=== PATIENT | female | born 1955 | race Caucasian/White ===

== ENCOUNTER 2016-11-13 11:09 | Emergency (ER) | payer OTHER, BC ==
[~2016-11-13] VITALS: Ht 160 cm; Wt 66.2 kg
[~2016-11-13 11:09] MED LIST: CHOL100027 PO; CLX20 PO; CYAN10004 PO; LORA-749 PO; MULT-506 PO; OXYC-57 PO; XNX25 PO
[2016-11-13 11:11] VITALS: TEMP 36.9; Ht 160 cm; Wt 66.2 kg
[2016-11-13] MEDS ORDERED: KETOROLAC TROMETHAMINE 30 MG/ML VIAL IV STA (11:33)
[2016-11-13] MEDS ORDERED: DEXAMETHASONE SOD INJ 10 MG/ML VIAL IV ONE (11:45)
[2016-11-13] MEDS ORDERED: SODIUM CHLORIDE 0.9% 1000ML 1,000 ML IV ONE (11:45)
[2016-11-13 12:04] LABS: BASO % 0.2 %; BASO ABS # 0.02 K/uL (0-0.2); COMPLETE YES; EOS % 1.5 %; HEMATOCRIT 39.9 % (37-47); IG% 0.2 %; LYMPH % 20.8 %; LYMPH ABS # 1.67 K/uL (1.2-3.4); MEAN CELL VOLUME 87.7 fL (80-100); MEAN CORPUSCULAR HEMOGLOBIN 29.7 pg (25-34); MEAN CORPUSCULAR HGB CONC 33.8 g/dl (32-36); MEAN PLATELET VOLUME 9.9 fL (7.4-10.4); MONO % 10.5 %; NEUT % 66.8 %; PLATELET COUNT 213 K/uL (130-400); RED BLOOD COUNT 4.55 M/uL (4.2-5.4); WHITE BLOOD COUNT 8.02 K/uL (4.8-10.8)
--- NOTE | 2016-11-13 12:05 | EMERGENCY ROOM VISIT NOTE ---
ED Visit Note First contact with patient: 11:24 I have seen and examined this patient with Jass Nam and generally agree with the treatment plan as discussed. Current/Historical Medications Scheduled Citalopram (Celexa *), 40 MG PO DAILY Allergies Coded Allergies: No Known Allergies (Verified , 05/19/11) Vital Signs Date Time Temp Pulse Resp B/P Pulse Ox O2 Delivery O2 Flow Rate FiO2 11/13/16 11:11 36.9 96 20 138/88 96 Room Air Laboratory Results Test 11/13/16 11:50 Medications Administered Medications (Trade) Dose Ordered Sig/Nevaeh Route Start Time Stop Time Status Last Admin Dose Admin Sodium Chloride (Nss 1000ml) 1,000 ml @ 200 mls/hr Q5H ONCE IV 11/13/16 11:45 11/13/16 16:44 11/13/16 11:45 200 MLS/HR Ketorolac Tromethamine (Toradol Inj) 30 mg NOW STAT IV 11/13/16 11:33 11/13/16 11:36 DC 11/13/16 11:46 30 MG Dexamethasone Sodium Phosphate (Decadron Inj) 10 mg NOW ONCE IV 11/13/16 11:45 11/13/16 11:46 DC 11/13/16 11:46 10 MG Departure Information Referrals Amarjit Mendez M.D. (PCP) Patient Instructions A Signature Page, [facility]
[2016-11-13 12:22] LABS: BUN/CREATININE RATIO 9.5 (10-20); CALCIUM 8.5 mg/dl (8.5-10.1); CREATININE 0.8 mg/dl (0.60-1.20); POTASSIUM 3.5 mmol/L (3.5-5.1)
[2016-11-13] MEDS ORDERED: MoRPHine SULFATE 2 MG/ML CARP IV STA (13:14)
[2016-11-13] MEDS ORDERED: ONDANSETRON INJ 2 MG/ML 2 ML VIAL IV STA (13:14)
--- NOTE | 2016-11-13 14:40 | DIAGNOSTIC IMAGING REPORT ---
CT SCAN OF THE NECK WITH IV CONTRAST CLINICAL HISTORY: Throat swelling. Dysphagia. COMPARISON STUDY: Radiograph the cervical spine dated 06/29/2016. TECHNIQUE: Following the IV administration of 118 cc of Optiray 320, CT scan of the soft tissues of the neck was performed from the skull base to the upper chest. Images are reviewed in the axial, sagittal, and coronal planes. IV contrast was administered without complication. CT DOSE: 431.72 mGy.cm FINDINGS: Pharynx: There is bilateral tonsillar edema, right greater than left. Phlegmonous changes suggested on the right. No organized fluid collection is seen to indicate abscess. There is mild stranding within the right parapharyngeal fat at the level of C4-C5. There is retropharyngeal edema eccentric to the right seen extending from C2 through C5. Phlegmonous change with a developing retropharyngeal fluid collection is suggested eccentric to the right at C4-C5, best seen on axial image #193. This measures up to 4 mm in thickness, there is effacement of the right pyriform sinus and vallecula. There is mild mass effect with no significant compromise of the airway. There is no evidence of mass lesion. The vocal cords appear symmetric. The left parapharyngeal fat is well maintained. The epiglottis is normal. Lymphadenopathy: No cervical lymphadenopathy is seen Thyroid: Normal in size and attenuation. A subcentimeter nodule is noted in the left lobe. Salivary glands: The parotid and submandibular glands are within normal limits. Brain parenchyma: The visualized brain parenchyma at the skull base is normal in appearance. Vascular structures: The carotid arteries and jugular veins are widely patent. Minimal atherosclerotic calcification is seen in the left carotid bulb. Skeletal structures: The skeletal structures are osteopenic. Imaged portions of the calvarium at the skull base are within normal limits. The cervical spine appears intact, noting cervical spondylosis with reversal of the natural cervical lordosis. A hemangioma is noted in the body of C7. No lytic or blastic lesions are seen. Sinuses and mastoids: The visualized paranasal sinuses are clear. The mastoid air cells are well pneumatized. Lung apices: Visualized apical lung parenchyma is clear. IMPRESSION: 1. There is edema identified involving the tonsils bilaterally, right greater than left suggesting tonsillitis. Phlegmonous change is suspected in the right. No organized fluid collection is seen to indicate tonsillar abscess. 2. There is mild stranding involving the right parapharyngeal fat, with right-sided retropharyngeal inflammation and edema seen extending from C2 through C5. There is phlegmonous change with a suspected developing retropharyngeal abscess at the level of C4-C5. See above. Emergent ENT consultation is advised. 3. Pharyngeal edema causes mild effacement of the airway. There is no significant compromise at this time. Electronically signed by: Chuy Waite M.D. 11/13/2016 2:38 PM
[2016-11-13] MEDS ORDERED: PRED20TA2 PO (15:27)
[2016-11-13 15:50] VITALS: BP 120/69; PULSE 99; O2SAT 95
--- NOTE | 2016-11-14 22:02 | EMERGENCY ROOM VISIT NOTE ---
ED Visit Note First contact with patient: 11:24 Chief Complaint: Throat pain. History of Present Illness: Ms. Marr is a 61-year-old white female who ambulates into the ED complaining of throat pain. Patient denies any previous significant medical history. Patient reports her throat discomfort started 5 days ago. Since that time her pain has been constant. She reports initially it was mild and has gradually increased in intensity. Should be noted she can barely speak due to her pain and swelling in the back of her throat. I was not able to give a description of the pain. She rates her discomfort 9/10. Her pain worsens with swallowing and talking. She has not identified any alleviating factors related to the pain. MEDICATIONS. Associated with her pain she cannot open her mouth, she has lost her voice, she has been experiencing chills but no azael fevers and she has not been able to swallow food. She denies headache, dizziness, lightheadedness, sinus congestion, visual changes, hearing changes, neck pain/stiffness, cough, wheezing, shortness of breath, chest pain, abdominal pain or nausea, vomiting, skin eruptions, skin color changes. Review of Systems: As noted above in history of present illness. All body systems were reviewed and found to be negative as noted above. Past Medical History: Patient denies. Current Medications: Celexa. Allergies to Medications: Patient denies. Social History: Patient is currently employed; she feels safe in her home environment; she denies tobacco and alcohol use. Physical Examination: Vital Signs: Date Time Temp Pulse Resp B/P Pulse Ox O2 Delivery O2 Flow Rate FiO2 11/13/16 15:50 99 18 120/69 95 11/13/16 13:31 85 16 138/83 97 Room Air 11/13/16 12:52 75 16 139/77 96 Room Air 11/13/16 12:37 75 11/13/16 11:11 36.9 96 20 138/88 96 Room Air GENERAL: 61-year-old female in moderate distress due to pain and symptoms, nontoxic-appearing, afebrile and hemodynamically stable. NEUROLOGICAL: Awake, alert and oriented to person, place and time. Answering questions appropriately and following commands. Normal gait. Good hand eye coordination. No focal motor sensory deficits. SKIN: Warm, dry and pink. No soft tissue eruptions or trauma noted. HEENT: Atraumatic and normocephalic. PERRLA. Sclera white and conjunctiva pink. No drainage from naris. Patient has trismus. Airway appears patent. Partial view of the posterior pharyngeal area shows mild erythema and edema but grossly large tonsils and uvula. No exudative material's were noted. She is able to control her own secretions. Speech is whispered but distinguishable. No palpable cervical or submandibular lymphadenopathy. No auditory or auscultatory stridor. Trachea midline. No jugular venous distention. BACK: No tenderness over the bony cervical and thoracic spine. No nuchal rigidity or meningismus. THORAX: Lungs sounds are clear to auscultation and equal bilaterally with symmetrical chest wall. No wheezing, rales or rhonchi. ABDOMEN: Flat, soft and nontender. Positive bowel sounds in all quadrants. No guarding, rigidity or organomegaly. EXTREMITIES: Moves all extremities well on command and with purpose. All distal neurovascular statuses are intact and equal bilaterally. ED Course: Patient is assessed as noted above. Laboratory Testing: Test 11/13/16 11:50 Range/Units White Blood Count 8.02 4.8-10.8 K/uL Red Blood Count 4.55 4.2-5.4 M/uL Hemoglobin 13.5 12.0-16.0 g/dL Hematocrit 39.9 37-47 % Mean Corpuscular Volume 87.7 80-100 fL Mean Corpuscular Hemoglobin 29.7 25-34 pg Mean Corpuscular Hemoglobin Concent 33.8 32-36 g/dl Platelet Count 213 130-400 K/uL Mean Platelet Volume 9.9 7.4-10.4 fL Neutrophils (%) (Auto) 66.8 % Lymphocytes (%) (Auto) 20.8 % Monocytes (%) (Auto) 10.5 % Eosinophils (%) (Auto) 1.5 % Basophils (%) (Auto) 0.2 % Neutrophils # (Auto) 5.35 1.4-6.5 K/uL Lymphocytes # (Auto) 1.67 1.2-3.4 K/uL Monocytes # (Auto) 0.84 0.11-0.59 K/uL Eosinophils # (Auto) 0.12 0-0.5 K/uL Basophils # (Auto) 0.02 0-0.2 K/uL RDW Standard Deviation 41.8 36.4-46.3 fL RDW Coefficient of Variation 13.0 11.5-14.5 % Immature Granulocyte % (Auto) 0.2 % Immature Granulocyte # (Auto) 0.02 0.00-0.02 K/uL Sodium Level 143 136-145 mmol/L Potassium Level 3.5 3.5-5.1 mmol/L Chloride Level 108 98-107 mmol/L Carbon Dioxide Level 26 21-32 mmol/L Anion Gap 9.0 3-11 mmol/L Blood Urea Nitrogen 8 7-18 mg/dl Creatinine 0.80 0.60-1.20 mg/dl Est Creatinine Clear Calc Drug Dose 68.4 ml/min Estimated GFR () 92.9 Estimated GFR (Non- 80.1 BUN/Creatinine Ratio 9.5 10-20 Random Glucose 93 70-99 mg/dl Calcium Level 8.5 8.5-10.1 mg/dl Monoscreen NEG NEG Group A Streptococcus Screen: Negative. Culture pending. Soft Tissue Neck CT with Contrast: Was reviewed by myself and read by the radiologist showing edema identified involving the tonsils bilaterally greater on the right than the left suggesting of tonsillitis with phelgmonous changes suspected on the right but no organized fluid collections. Mild stranding involving the right para pharyngeal fat with right sided retropharyngeal inflammation and edema extending from C1 through C5 and there is phegmonous changes with a developing abscess at the level of C4-C5. Pharyngeal edema causing mild effacement of the airway but no significant compromise at this time. Patient was hydrated with normal saline, she received 30 mg of Toradol IV for pain and 10 mg of Decadron IV. Patient was then given 2 mg of morphine IV and 4 mg of Zofran IV for her symptoms. Patient was reassessed multiple times during her stay in the emergency department. Patient's case was reviewed with Dr. Rahman; we agreed on diagnostic approach, treatment, disposition and plan. Patient's case was consulted with Dr. Lindsay, ENT specialist; he recommended continued steroids and office follow-up on Monday. Patient was educated about tonight's findings and instructed on her treatment plan; she verbalizes understanding and agreement with this plan. Clinical Impression: Acute throat pain. Bilateral tonsillitis. Decision-Making: Initially my differential diagnosis I considered tonsillitis, mononucleosis, peritonsillar abscess, uvulitis and other causes. Disposition: Patient discharged home in stable condition accompanied by her ; prior to departure she was reassessed and subjectively reported she was feeling better and rated her overall discomfort 8/10 and it was noted that she was eating cookies with her . Plan: Patient was prescribed 60 mg of prednisone once a day for 5 days. Patient was encouraged to alternate ibuprofen and acetaminophen every 3 hours. Patient was encouraged to consider using a liquid or mechanical soft diet. Patient was encouraged to consider sleeping with her head elevated. Patient was encouraged to call the ENT specialist for definitive care and treatment. Patient was encouraged return the ED for worsening/uncontrolled pain, worsening ability to swallow, drooling, inability to control her own secretions or any new /concerning symptoms.
[2017-10-17] MEDS ORDERED: CITA40TA4 PO (13:12)
[2017-10-17] MEDS ORDERED: RAME8TAB18 PO (13:12)
[2017-10-17] MEDS ORDERED: GABA-113 PO (13:12)
[2017-11-16] MEDS ORDERED: DIPH25CA5 PO (07:39)
[2017-11-16] MEDS ORDERED: HYDR-5688 PO (09:21)
== END 2016-11-13 15:51 | disposition home or self-care (01) ==
LOC: EDBD → C.EDB 11:10 → C.EDD 15:51
DX: J03.90 Acute tonsillitis, unspecified (principal)

== ENCOUNTER → 2017-03-28 | Outpatient (CLI) | payer OTHER, BC ==
[~2017-03-28] MED LIST changes: -CHOL100027 PO; +CITA40TA4 PO; -CYAN10004 PO; +GABA-113 PO; -LORA-749 PO; -MULT-506 PO; -OXYC-57 PO; +PRED20TA2 PO; +RAME8TAB18 PO; -XNX25 PO
== END | disposition home or self-care (01) ==
LOC: EDBD → C.RDSM 15:00
PROVIDERS: ATTEND Physical Medicine & Rehabilitation Sports Medicine
DX: M25.511 Pain in right shoulder (principal)

== ENCOUNTER → 2017-03-31 | Outpatient (CLI) | payer OTHER, BC ==
--- NOTE | 2017-03-31 16:30 | MAMMOGRAPHY REPORT ---
BILATERAL DIGITAL SCREENING MAMMOGRAM TOMOSYNTHESIS WITH CAD: 03/31/2017 TECHNIQUE: Breast tomosynthesis in addition to standard 2D mammography was performed. Current study was also evaluated with a Computer Aided Detection (CAD) system. COMPARISON: Comparison is made to exams dated: 03/09/2016 mammogram, 03/09/2016 ultrasound biopsy, ultrasound, 03/02/2016 mammogram, 02/25/2016 mammogram, and 05/14/2014 ultrasound - [facility]. BREAST COMPOSITION: There are scattered areas of fibroglandular density in both breasts. FINDINGS: No suspicious masses, calcifications, or areas of architectural distortion are noted in e ither breast. There has been no significant interval change compared to prior exams. A biopsy marke r clip is again noted in the right 12:00 breast. Coarse benign-appearing calcifications in the righ t anterior breast are not significantly changed. IMPRESSION: ACR BI-RADS CATEGORY 2: BENIGN There is no mammographic evidence of malignancy. A 1 year screening mammogram is recommended. The p atient will receive written notification of the results. Approximately 10% of breast cancers are not detected with mammography. A negative mammographic repor t should not delay biopsy if a clinically suggestive mass is present. Naina Maier M.D. ah/:03/31/2017 15:19:15 Machinist Linotype: Irasema LYNCH(Marie)(M), [facility] letter sent: Normal 1/2 BI-RADS Code: ACR BI-RADS Category 2: Benign
== END | disposition home or self-care (01) ==
LOC: EDBD → C.MAMM 14:22
PROVIDERS: ATTEND Family Medicine
DX: Z12.31 Encounter for screening mammogram for malignant neoplasm of breast (principal)

== ENCOUNTER → 2017-09-18 | Outpatient (CLI) | payer OTHER, BC ==
[~2017-09-18] MED LIST changes: -CITA40TA4 PO; -GABA-113 PO; -PRED20TA2 PO; -RAME8TAB18 PO
== END | disposition home or self-care (01) ==
LOC: C.RDSM 16:49
PROVIDERS: ATTEND Physical Medicine & Rehabilitation Sports Medicine
DX: M79.641 Pain in right hand (principal); M79.642 Pain in left hand

== ENCOUNTER → 2017-11-16 | Day surgery (SDC) | payer OTHER, BC ==
[2017-10-17 13:13] VITALS: Ht 161.3 cm; Wt 64.5 kg
[~2017-11-16] VITALS: Ht 161.3 cm; Wt 64.5 kg
[~2017-11-16] MED LIST changes: +ATROPINE SULFATE 0.1 MG/ML 5ML SYR IV PRN; +BUPIVACAINE/EPINEPHRINE 0.5% MPF 1:200,000 30 ML VIAL ONE; +CEFAZOLIN 1000MG IV PUSH 5 ML IV SCH; +CITA40TA4 PO; -CLX20 PO; +DIPH25CA5 PO; +EpHEDrine SULFATE INJ 50 MG/ML AMP IV PRN; +FENTANYL CITRATE INJ 50 MCG/1 ML 2 ML VIAL IV PRN; +FENTANYL CITRATE INJ 50 MCG/1 ML 2 ML VIAL ONE; +GABA-113 PO; +HYDR-5688 PO; +HYDROCODONE/ACETAMOPHEN 5/325MG TAB PO PRN; +LACTATED RINGER'S 1000ML 1,000 ML IV SCH; +LIDOCAINE HCL 1% 20 ML VIAL ONE; +LIDOCAINE HCL 2% 2 ML VIAL (20MG/ML) ONE; +LIDOCAINE/EPINEPHRINE 1% INJ 50 ML VIAL ONE; +METHYLPREDNISOLONE ACETATE 80 MG/ML VIAL ONE; +MIDAZOLAM HCL 1 MG/ML 2ML VIAL ONE; +ONDANSETRON INJ 2 MG/ML 2 ML VIAL IV PRN; +PROPOFOL IV EMULSION 10 MG/ML 20 ML VIAL IV ONE; +RAME8TAB18 PO; +SODIUM CHLORIDE 0.9% 1000ML 1,000 ML IV SCH
--- NOTE | 2017-11-16 08:27 | History & Physical Bridge Note ---
H&P Re-Evaluation Bridge Note: I have examined the patient, reviewed the History & Physical and in the interval since the performance of the History & Physical I have noted the following changes of clinical significance: No changes noted
--- NOTE | 2017-11-16 09:13 | [facility] Post Operative Brief Note ---
Immediate Operative Summary Operative Date Nov 16, 2017. Pre-Operative Diagnosis Right Middle & Left Thumb Trigger Fingers, Right Shoulder & Right Knee Pain Post-Operative Diagnosis Same Procedure(s) Performed Right Middle Finger & Left Thumb Trigger Digit Releases; Right Shoulder Subacromial Steriod Injection; Right Knee Joint Steroid Injection Surgeon Dr. Manzano Social Media Content Specialist Surgeon(s) Hussein Joyce PA-C, Marian Campos student Estimated Blood Loss 0 Findings as above Specimens None Drains 0 Anesthesia local wiith IV sedation Complication(s) None Disposition Recovery Room / PACU
--- NOTE | 2017-11-16 09:23 | Discharge Instructions-SurgCtr ---
Discharge Instructions Date of Service Nov 16, 2017. Visit Reason for Visit: Right Middle And Left Thumb Trigger Digits Discharge Discharge Diagnosis / Problem: right middle and left thumb trigger digits; right shoulder and right knee Discharge Goals Goal(s): Decrease discomfort, Improve function, Increase independence Activity Recommendations Activity Limitations: per Instructions/Follow-up section Anesthesia . Post Anesthesia Instructions: If you have had General Anesthesia or IV Sedation: * Do not drive today. * Resume driving when surgeon permits. * Do not make important decisions or sign legal documents today. * Call surgeon for: 1. Temperature elevations greater than 101 degrees F. 2. Uncontrollable pain. 3. Excessive bleeding. 4. Persistent nausea and vomiting. 5. Medication intolerance (nausea, vomiting or rash). * For nausea and vomiting use only clear liquids such as: tea, soda, bouillon until nausea subsides, then gradually increase diet as tolerated. * If you have any concerns or questions, call your surgeon's office. If physician is unavailable and it is an emergency, call 911 or go to the nearest emergency room. . Instructions / Follow-Up Instructions / Follow-Up The following are instructions to follow after minor hand surgery. ACTIVITY RECOMMENDATIONS: * Minimize activity until your first visit after surgery. * No excessive walking, jogging, sports or laboring. * Return to activity is individualized. Most patients are able to return to everyday activities within 2 weeks. * Return to sports or intensive labor usually occurs at 1-2 months. * DRIVING: Driving may be resumed when you feel you have adequate pain control and use of the hand. * BATHING: You may shower or sponge-bathe immediately after surgery. The dressing will need to be covered with a plastic bag or plastic wrap until the dressing is changed on the fourth or fifth day after surgery. Once the dressing has been changed on the fourth or fifth day after surgery, you may shower and get the incision wet. * Wash with regular soap and water. * Do not bathe (submerge the incision), soak, swim or use a hot tub until the incision is completely healed over with normal skin and the doctor has given the OK to proceed. * There is no need to apply any ointments, powders or salves to your incision. * Do not apply alcohol or hydrogen peroxide directly to the incision. Diluted peroxide (50:50 mixture with sterile saline) may be used to clean dried blood from around the incision area. WORK/SCHOOL: * You may return to sedentary work or school when you are feeling comfortable. This is usually 3-7 days after surgery. * Expect increased discomfort with increased activity. Continue to elevate and ice the hand as much as possible. DIET: * Resume previous diet. MEDICATIONS: * You will have a prescription for pain medication and an anti-inflammatory medication after surgery. Use the pain pills for severe pain and the anti-inflammatory for less severe pain. * Once the pain pills have run out, try to use the anti-inflammatory. If this is not effective then contact the office for assistance. * The pain medication may cause nausea, constipation and sleepiness. You should see how they affect you before driving or similar activity. * The anti-inflammatory may cause stomach upset and bleeding. If this occurs, let your doctor know immediately . * Some patients may need blood clot prevention. This can be done with either a pill or a simple shot. Your doctor will advise you on when to begin these medications and how to take them. * Do not take aspirin or other anti-inflammatory products (i.e. Advil or Aleve ) if taking blood thinner medication. * Take a stool softener like Colace or a stimulant like Senokot to prevent constipation. SPECIAL CARE INSTRUCTIONS: ICE: * Do not apply ice directly to the skin. * Use a thin dressing or stockinet between the skin and ice bag. The dressing in place after surgery will suffice. * Apply ice for 20-30 minutes and repeat every 2-4 hours. This is especially important for the first 3-7 days after surgery. * Once the pain improves, use ice as needed. ELEVATION: * Keep your hand elevated at or above the level of your heart as much as possible. * Expect some increased discomfort and swelling if you allow your hand to hang down for any length of time. DRESSING: * Your dressing will be changed 4-5 days after surgery by the physical therapist or physician's child life assistant. Leave your dressing intact until this time. * You may then change your dressing daily with clean dry gauze or Band-aids and a soft wrap or stockinet. * Always wash your hands prior to touching the incision area. * Once the stitches are removed, you may leave the wound open to air or cover with a thin bandage. * There is no need to apply any ointments, powders or salves to your incision. * Expect some bloody drainage for the first few days after surgery. * Leave the tape strips in place (if present) for 5-7 days. * The initial dressing after surgery may become soaked with blood or fluid which is normal. You may reinforce your dressing with clean, dry gauze as needed. BRACE: * Bracing is generally not needed after routine hand surgery. THERAPY: * Physical therapy may be prescribed after your surgery. * For carpal tunnel and trigger digit surgery you may begin moving your fingers and wrist immediately after surgery as tolerated. * Be careful to not overuse. * Once the sutures are removed, further range of motion exercises can be performed. * Hand incisions may be very sensitive for a few months after surgery so avoid excessive pressure on the incision. If necessary, use a padded weightlifters' glove. * You may massage the incision with skin cream to make it less sensitive and reduce scarring. * Hand strength usually returns with normal use. * If needed, squeezing a soft sponge or Play-dough may help. * Your doctor will recommend physical therapy if necessary. PROBLEMS/QUESTIONS: * If you have any problems such as severe pain, numbness, tingling or high fevers or if you have any questions, please contact the office at [phone]. * It is not uncommon to have some numbness and tingling after the surgery especially if you have had a nerve block done. This should gradually improve over the first 1- 2 days. If this persists longer or worsens then contact the office. FOLLOW UP VISIT: * If not already scheduled, please call the office at to schedule follow-up appointments for approximately 10 days, 6 weeks and 3 months after surgery. * You have physical therapy appointment on 11/20/2017 at 10:00 AM. * You have a follow-up appointment with Dr. Manzano on 11/29/2017 11:45 AM. Diet Recommendations Home Diet: no limitations, resume previous diet Procedures Procedures Performed: Right Middle Finger & Left Thumb Trigger Digit Releases; Right Shoulder Subacromial Steriod Injection; Right Knee Joint Steroid Injection Pending Studies Studies pending at discharge: no Medical Emergencies . Who to Call and When: Medical Emergencies: If at any time you feel your situation is an emergency, please call 911 immediately. . Non-Emergent Contact Non-Emergency issues call your: Surgeon Call Non-Emergent contact if: temperature is above 101, your pain is not controlled, your pain is worsening, your pain is unusual for you, your pain is concerning you, wound has increased drainage, wound has increased redness, wound has increased pain, you have any medication questions . . "Provider Documentation" section prepared by Jennifer Joyce. . [place] Drug Monitoring Program Search Results: patient reviewed within database, no issues identified
--- NOTE | 2017-11-16 09:26 | [facility] Operative Report ---
Operative Report Operative Date Nov 16, 2017. Pre-Operative Diagnosis Right Middle & Left Thumb Trigger Fingers, Right Shoulder & Right Knee Pain Post-Operative Diagnosis Same Procedure(s) Performed Right Middle Finger & Left Thumb Trigger Digit Releases; Right Shoulder Subacromial Steriod Injection; Right Knee Joint Steroid Injection Surgeon Dr. Manzano Siphon Operator Surgeon(s) Hussein Joyce PA-C, Marian Campos student Estimated Blood Loss 0 Findings Right knee pain, right shoulder pain, right middle finger trigger digit, left thumb trigger digit Specimens None Drains 0 Anesthesia local wiith IV sedation Complication(s) None Disposition Recovery Room / PACU Indications Patient is a 72-year-old female with complaints of right hand triggering of her middle finger. She has had locking and catching and pain. She had left thumb catching and pain as well. She is failed conservative treatment. X-rays were taken and found no bony abnormality. Surgical intervention recommended. Risks and complications discussed. She wished to proceed with surgery and informed consent was obtained. Description of Procedure Patient was taken to the operating room and placed under IV sedation. She was given local injections into her right hand and left thumb. She tolerated those injections well. She was given 1 g of IV Ancef for surgical prophylaxis. Timeout was performed. She was prepped and draped in routine sterile fashion. I was present during the entire case, please see Dr. Manzano's operative report for further detail. She is awakened and transferred to recovery room in stable condition. I attest to the content of the Intraoperative Record and any orders documented therein. Any exceptions are noted below.
--- NOTE | 2017-11-16 09:32 | [facility] Operative Report ---
Operative Report Operative Date Nov 16, 2017. Pre-Operative Diagnosis Right Middle & Left Thumb Trigger Fingers, Right Shoulder & Right Knee Pain Post-Operative Diagnosis Same Procedure(s) Performed Right Middle Finger & Left Thumb Trigger Digit Releases; Right Shoulder Subacromial Steriod Injection; Right Knee Joint Steroid Injection Surgeon Dr. Manzano Materials Handling Equipment Operator Surgeon(s) Hussein Joyce PA-C, Marian Campos student Estimated Blood Loss 0 Findings Nodularity of the left thumb A1 fahad. Catching of the right long finger in hyperflexion. Specimens None Anesthesia local with IV sedation Complication(s) None Disposition Recovery Room / PACU Indications Patient is a 72-year-old female with a symptomatic right hand long finger trigger digit left thumb trigger digit and pain in the right shoulder and right knee. She wishes to have cortisone injections and her right shoulder and right knee while she is sedated. Trigger thumb and trigger finger surgery will be performed due to failure of nonsurgical methods of management. Description of Procedure Informed consent was obtained. The patient was identified as Ayanna Marr. She identified the operative site as the left thumb right shoulder right knee and right long finger. A preoperative surgical timeout was performed. The individual procedure site were marked with my initials. She received a preoperative dose of IV antibiotics. She was positioned supine on the hospital stretcher with both arms on a hand table area the left arm had a tourniquet applied to the upper arm area. The examination under anesthesia showed no catching or triggering of the left thumb however there was enlargement near the A1 fahad. On the right long finger she had catching in terminal hyperflexion but no locking. 1% lidocaine without epinephrine 3 mL volume and 40 mg of Depo-Medrol were injected into the right shoulder subacromial space and right knee joint using sterile technique and separate preparations for the injection. DVT prophylaxis is not indicated. 1% lidocaine with epinephrine and 0.5% Marcaine with epinephrine were injected into the left thumb and right middle finger for anesthesia. IV sedation was administered. Both upper extremities were prepped and draped in the usual sterile fashion. The right hand was operated on first. The limb was exsanguinated with the Esmarch and the Esmarch was wrapped off the wrist and used as a tourniquet. The Esmarch was let down deeper conclusion operation after proximally 7 minutes of inflation. An oblique incision was made in line with the skin creases overlying the carpal phalangeal joint of the right long finger. Blunt dissection performed down in the midline until the flexor sheath was identified. The synovial covering of the sheath proximally was opened and the thickened A1 fahad was identified and completely released in the midline. The tendon was normal there is no Amanda synovitis. No nodularity or fraying of the tendon. The triggering phenomenon was completely relieved. The wound was irrigated with sterile saline. It was then closed with interrupted 40 horizontal mattress and simple sutures. Soft sterile dressing was applied. On the left thumb the limb was exsanguinated with the Esmarch tourniquet inflated 225 mmHg. An oblique incision was made between the skin creases on the proximal thumb. Care was taken to protect the digital nerves. Blunt dissection was performed down the midline until the tendon was identified. Could not make the tendon trigger. I do not see any cysts. The tendon sheath was not notably thickened I did release the A1 fahad. I explored the tendon thoroughly and found no nodularity or fraying. I checked proximally distally medially and laterally. I could not see any additional visible pathology such as a cyst. The skin wound was irrigated and the skin was closed with 4-0 nylon again taking care to protect the digital nerve. A soft sterile dressing was applied and the tourniquet was let down after approximately 10 minutes of inflation. There were no specimens or complications. Counts are correct in the case. Blood loss was minimal. At the conclusion of the operation spoke the patient's by phone and informed her my findings gave detailed postoperative instructions. She'll be in for dressing change in several days and can do early active movement of both hands. A lateral suprapatellar approach was utilized to inject the right knee. A lateral subacromial approach was utilized to inject the right shoulder I attest to the content of the Intraoperative Record and any orders documented therein. Any exceptions are noted below.
--- NOTE | 2017-11-16 10:04 | Anesthesiology Progress Note ---
Anesthesia Post Op Note Date & Time Nov 16, 2017 at 10:03 Vital Signs Pain Intensity: 0 Vital Signs Past 12 Hours Date Time Temp Pulse Resp B/P (MAP) Pulse Ox O2 Delivery O2 Flow Rate FiO2 11/16/17 09:20 36.6 92 16 168/69 (102) 96 Room Air 11/16/17 07:39 36.4 73 18 166/110 (128) 95 Room Air Notes Mental Status: alert / awake / arousable, participated in evaluation Nausea / Vomiting: adequately controlled Pain: adequately controlled Airway Patency, RR, SpO2: stable & adequate BP & HR: stable & adequate Hydration State: stable & adequate Anesthetic Complications: no major complications apparent
[2017-11-16 10:13] VITALS: BP 154/88; PULSE 69; TEMP 36.6; O2SAT 96
== END | disposition home or self-care (01) ==
LOC: X.SURG 07:28
PROVIDERS: ATTEND Physical Medicine & Rehabilitation Sports Medicine
DX: M65.331 Trigger finger, right middle finger (principal); M65.312 Trigger thumb, left thumb; M25.511 Pain in right shoulder; M17.11 Unilateral primary osteoarthritis, right knee; E78.5 Hyperlipidemia, unspecified; K21.9 Gastro-esophageal reflux disease without esophagitis; M19.90 Unspecified osteoarthritis, unspecified site; M06.9 Rheumatoid arthritis, unspecified; E78.00 Pure hypercholesterolemia, unspecified

== ENCOUNTER 2019-10-14 06:10 | Observation (INO) ==
--- NOTE | 2019-09-30 15:52 | PAT Medication Instructions ---
Medication Instructions Date of Service September 30, 2019 Home Medications diphenhydramine HCl [Benadryl] 25 mg PO Q4H PRN naproxen 500 mg PO BID PRN pantoprazole 40 mg PO QAM citalopram 40 mg PO HS lorazepam 0.5 mg PO BID PRN trazodone 50 mg PO HS PRN ASK your surgeon for instructions naproxen 500 mg PO BID PRN DO NOT take the morning of surgery diphenhydramine HCl [Benadryl] 25 mg PO Q4H PRN Take morning of surgery With a small sip of water, OTHERWISE NOTHING TO EAT OR DRINK AFTER MIDNIGHT: pantoprazole 40 mg PO QAM lorazepam 0.5 mg PO BID PRN (if needed) Take evening before surgery diphenhydramine HCl [Benadryl] 25 mg PO Q4H PRN (if needed) citalopram 40 mg PO HS lorazepam 0.5 mg PO BID PRN (if needed) trazodone 50 mg PO HS PRN (if needed) Other Notes If you have any questions please call us at [phone] or [phone] or [phone] or [phone]
--- NOTE | 2019-10-01 12:12 | Anesthesiology Consultation ---
Date of Service October 01, 2019 Assessment & Plan (1) Encounter for pre-operative examination: Chart Review Chart Review: Acceptable Risk for Surgery and Patient seen in Pre Admission Testing Teaching & Discussion Instructed NPO after midnight before surgery, except medications with 15 cc of water. Medication instructions provided according to the PAT guidelines. History Surgery Operation Date: 10/15/19 07:45 Proposed Procedures p C6-C7 Anterior Cervical Discectomy Fusion, C4 Corpectomy, Spinal Cord Monitoring - Arturo Evans, Height/Weight Height: 5 ft 4 in Weight: 67.9 kg Allergies Allergy/AdvReac Type Severity Reaction Status Date / Time No Known Allergies Allergy Unknown Verified 05/22/19 14:09 Medications Home Medications Medication Instructions Recorded Confirmed Last Taken diphenhydramine HCl [Benadryl] 25 mg PO Q4H PRN 05/22/19 09/17/19 Unknown naproxen 500 mg PO BID PRN 05/22/19 09/17/19 Unknown pantoprazole 40 mg PO QAM 05/22/19 09/17/19 05/22/19 citalopram 40 mg PO HS 09/17/19 09/17/19 Unknown lorazepam 0.5 mg PO BID PRN 09/17/19 09/17/19 Unknown trazodone 50 mg PO HS PRN 09/17/19 09/17/19 Unknown Past Medical History Medical History Anxiety and depression Environmental allergies POLLEN Fibromyalgia GERD (gastroesophageal reflux disease) Osteoarthritis Spinal stenosis Temporomandibular joint disorder Clicks, has never locked. Exercise / Class Metabolic Activity II 4-5 Yardwork/Stairs/Walk up hill (Denies CP or SOB with 1 FOS) Past Family History Family History (Updated 09/17/19 @ 15:07 by Salma Gregorio RN) Other No significant family history Past Surgical History Surgical History History of colonoscopy History of esophagogastroduodenoscopy (EGD) History of laminectomy LUMBAR History of nasal septoplasty S/P arthroscopic partial lateral meniscectomy LEFT [place] teeth removed Past Anesthesia History No Hx of Anesthesia Complications and No Family Hx of Anesthesia Complications History of PONV No Hx of PONV and No Hx of Motion Sickness STOP BANG Total 2 Social History Smoking Status: Never smoker Do You Dip or Chew Tobacco: No Hx Alcohol Use: No Hx Substance Use: No substance use type: does not use Review of Systems Pt denies any recent chest pain, shortness of breath, palpitations, cough, fever or URI. +mild rhinitis/seasonal allergies Physical Exam Vital Signs BP: 132/78 P: 74bpm SPO2: 95% RA T: 98.7 F R: 16 ENMT Mouth: + dental restorations (few crowns on molars); no chipped teeth and no loose teeth Thyromental Distance: < 3.5 Finger Breadths (3) Mallampati Class: I Neck normal visual inspection; neck extension not limited Respiratory normal respiratory effort Auscultation: lungs clear to auscultation bilaterally Cardiovascular Rate/Rhythm: regular rate and regular rhythm Heart Sounds: no murmur Vessels: no carotid bruit Extremities: no edema Testing Laboratory Results 10/01/19 12:16 10/01/19 12:16 PT 10.1 Seconds (9.0-12.0) 10/01/19 12:16 INR 1.0 (0.9-1.1) 10/01/19 12:16 APTT 23.9 Seconds (21.0-31.0) 10/01/19 12:16 Urine Color Dark Yellow 10/01/19 12:16 Urine Appearance Cloudy (Clear) A 10/01/19 12:16 Urine pH 5.0 (4.5-7.5) 10/01/19 12:16 Ur Specific [place] 1.033 (1.000-1.030) H 10/01/19 12:16 Urine Protein Negative (Negative) 10/01/19 12:16 Urine Glucose (UA) Negative (Negative) 10/01/19 12:16 Urine Ketones Negative (Negative) 10/01/19 12:16 Urine Nitrite Negative (Negative) 10/01/19 12:16 Ur Leukocyte Esterase 1+ (Negative) H 10/01/19 12:16 Urine WBC (Auto) >30 /hpf (0-5) H 10/01/19 12:16 Urine RBC (Auto) 0-4 /hpf (0-4) 10/01/19 12:16 U Hyaline Cast (Auto) 1-5 /lpf (0-5) 10/01/19 12:16 U Epithel Cells (Auto) >30 /lpf (0-5) H 10/01/19 12:16 Urine Bacteria (Auto) 2+ (Negative) H 10/01/19 12:16 Blood Type AB Positive 10/01/19 12:16 Antibody Screen NEGATIVE 10/01/19 12:16 Electrocardiogram Date: 05/22/19 Findings: + NSR @ (74) Chest X-Ray Date: 10/01/19 Findings: + NAD
[2019-10-01 12:46] LABS: Basophils # (auto) 0.01 K/uL (0-0.2); Basophils % (auto) 0.2 %; Eosinophils # (auto) 0.26 K/uL (0-0.5); Eosinophils % (auto) 5.4 %; Hemoglobin 13.1 g/dL (12.0-16.0); Immature Granulocytes # (auto) 0.01 K/uL (0.00-0.02); Immature Granulocytes % (auto) 0.2 %; Lymphocytes # (auto) 1.54 K/uL (1.2-3.4); Mean Corpuscular Hemoglobin 29.6 pg (25-34); Mean Corpuscular Hgb Conc 32.8 g/dL (32-36); Mean Corpuscular Volume 90.3 fL (80-100); Mean Platelet Volume 10.4 fL (7.4-10.4); Monocytes # (auto) 0.34 K/uL (0.11-0.59); Monocytes % (auto) 7.1 %; Neutrophils # (auto) 2.66 K/uL (1.4-6.5); Neutrophils % (auto) 55.1 %; Platelet Count 199 K/uL (130-400); RDW Coefficient of Variation 13.2 % (11.5-14.5); RDW Standard Deviation 43.6 fL (36.4-46.3); Red Blood Count 4.43 M/uL (4.2-5.4); White Blood Count 4.82 K/uL (4.8-10.8)
--- NOTE | 2019-10-01 12:47 | XRay Report ---
XR chest Pre-admission PA/Lat CLINICAL HISTORY: pat preoperative evaluation COMPARISON STUDY: 03/13/2012 FINDINGS: The bones soft tissues and hemidiaphragms are normal. The cardiomediastinal silhouette is n ormal. The lungs are clear. The pulmonary vasculature is normal. IMPRESSION: Negative chest. The above report was generated using voice recognition software. It may contain grammatical, syntax or spelling errors. Electronically signed by: Amarjit Del Real M.D. 10/01/2019 12:46 PM
[2019-10-01 12:59] LABS: Partial Thromboplastin Ratio 0.9; Partial Thromboplastin Time 23.9 Seconds (21.0-31.0); Prothrombin Time 10.1 Seconds (9.0-12.0)
[2019-10-01 13:28] LABS: Appearance Urine Cloudy (Clear); Bacteria Urine Automated 2+ (Negative); Bilirubin Urine Negative (Negative); Blood Urine Negative (Negative); Color Urine Dark Yellow; Epithelial Cell Urine Auto >30 /lpf (0-5); Glucose Urine UA Negative (Negative); Ketones Urine Negative (Negative); Leukocyte Esterase Urine 1+ (Negative); Nitrite Urine Negative (Negative); Protein Urine Negative (Negative); Specific Gravity Urine 1.033 (1.000-1.030); Urobilinogen Urine Negative (Negative); WBC Urine Automated >30 /hpf (0-5)
[2019-10-01 14:30] LABS: Calcium Oxalate Crystals Urine Present (None Prsent); RBC Urine Automated 0-4 /hpf (0-4)
[2019-10-01 15:03] LABS: BUN Creatinine Ratio 22.8 (10-20); Calcium 8.9 mg/dl (8.5-10.1); Creatinine Clr Calc Pharmacy 65.7 ml/min; Potassium 4.3 mmol/L (3.5-5.1)
[2019-10-14] MEDS ORDERED: CeleBREX 200 MG CAP ONE (06:35)
[2019-10-14] MEDS ORDERED: ACETAMINOPHEN 500 MG TAB ONE (06:35)
[2019-10-14] MEDS ORDERED: GABAPENTIN 300 MG CAP ONE (06:35)
[2019-10-14] MEDS ORDERED: CEFAZOLIN 1,000 MG/7.5 ML IV PUSH IV ONE (06:36)
[2019-10-14] MEDS ORDERED: fentaNYL citrate 100 MCG/2 ML VIAL ONE ×5 (06:50→09:48)
[2019-10-14] MEDS ORDERED: MIDAZOLAM HCL 1 MG/ML 2ML VIAL ONE (06:50)
[2019-10-14] MEDS ORDERED: HYDROmorphone INJ 2 MG/ML SYR/VIAL ONE ×2 (06:51→08:17)
[2019-10-14] MEDS ORDERED: BACITRACIN INJ 50,000 UNIT VIAL ONE (07:25)
--- NOTE | 2019-10-14 07:26 | History & Physical Bridge Note ---
Date of Service October 14, 2019 History & Physical Bridge Note I have examined the patient, reviewed the History & Physical and in the interval since the performance of the History & Physical I have noted the following changes of clinical significance: no changes noted
--- NOTE | 2019-10-14 07:27 | History & Physical Report ---
Date of Service October 14, 2019 Assessment & Plan (1) Myelopathy concurrent with and due to spinal stenosis of cervical region: Anterior cervical discectomy and fusion C6-C7 corpectomy C4 Present on Admission?: Yes History of Present Illness Chief Complaint: Neck and bilateral arm pain Primary Care Provider: Amarjit Mendez MD This is a 64-year-old female presents with chronic persistent neck and arm symptoms. After failing extensive course of nonoperative care is here for surgical intervention. Allergies Allergy/AdvReac Type Severity Reaction Status Date / Time No Known Allergies Allergy Unknown Verified 10/14/19 06:39 Home Medications Home Medications Medication Instructions Recorded Confirmed Type diphenhydramine HCl [Benadryl] 25 mg PO Q4H PRN 05/22/19 10/14/19 History naproxen 500 mg PO BID PRN 05/22/19 10/14/19 History pantoprazole 40 mg PO QAM 05/22/19 10/14/19 History citalopram 40 mg PO HS 09/17/19 10/14/19 History lorazepam 0.5 mg PO BID PRN 09/17/19 10/14/19 History trazodone 50 mg PO HS PRN 09/17/19 10/14/19 History Past Med/Surg History Medical History Anxiety and depression Environmental allergies POLLEN Fibromyalgia GERD (gastroesophageal reflux disease) Osteoarthritis Spinal stenosis Temporomandibular joint disorder Clicks, has never locked. Surgical History History of colonoscopy History of esophagogastroduodenoscopy (EGD) History of laminectomy LUMBAR History of nasal septoplasty S/P arthroscopic partial lateral meniscectomy LEFT [place] teeth removed Family History (Updated 09/17/19 @ 15:07 by Salma Gregorio RN) Other No significant family history Social History Preferred Language: Kinyarwanda Communication Ability: Effective Conference Planning Manager Required: No Beliefs That Will Affect Care: None Current Living Situation: Spouse Other Information That Helps Us Care for You: No Feels Safe at Home: Yes Safety Concerns: Feels Safe At This Time Smoking Status: Never smoker Do You Dip or Chew Tobacco: No ; Second Hand Exposure: No ; Tobacco Cessation Education Requested by Patient: No Hx Alcohol Use: No Hx Substance Use: No Physical Exam Physical Exam: Patient is alert and oriented neurologically intact. Results & Data Vital Signs (Past 12 Hours) Vital Signs Temp Pulse Resp BP Pulse Ox 10/14/19 06:50 36.7 C 71 18 173/92 H 97
[2019-10-14] MEDS ORDERED: PROPOFOL IV EMULSION 10 MG/ML 100 ML VIAL IV ONE (07:28)
[2019-10-14] MEDS ORDERED: PHENYLEPHRINE 100MCG/ML 5ML SYR IV PRN (07:40)
[2019-10-14] MEDS ORDERED: LABETALOL HCL IV 5 MG/ML 20ML IV PRN (07:40)
[2019-10-14] MEDS ORDERED: ONDANSETRON INJ 2 MG/ML 2 ML VIAL IV PRN ×2 (07:40→12:10)
[2019-10-14] MEDS ORDERED: HYDROmorphone INJ 1 MG/ML SYRINGE IV PRN ×2 (07:40→12:10)
[2019-10-14] MEDS ORDERED: ATROPINE SULFATE 0.1 MG/ML 10ML SYR IV PRN (07:40)
[2019-10-14] MEDS ORDERED: MEPERIDINE HCL 25 MG/ML CARP IV PRN (07:40)
[2019-10-14] MEDS ORDERED: ePHEDrine sulfate 50 MG/ML AMP IV PRN (07:40)
[2019-10-14] MEDS ORDERED: CEFAZOLIN 250 MG/ML 1 GM VIAL ONE (07:50)
[2019-10-14] MEDS ORDERED: LARYING-O-JET KIT (LTA) ONE (07:50)
[2019-10-14] MEDS ORDERED: FLOSEAL HEMOSTATIC MATRIX 10ML TOP ONE (08:17)
[2019-10-14] MEDS ORDERED: LIDOCAINE HCL 2% 2 ML VIAL/AMP(20MG/ML) INFIL ONE (08:45)
[2019-10-14] MEDS ORDERED: ePHEDrine sulfate 50 MG/ML SYR ONE (08:45)
[2019-10-14] MEDS ORDERED: PROPOFOL IV EMULSION 10 MG/ML 20 ML VIAL IV ONE (08:45)
[2019-10-14] MEDS ORDERED: DEXAMETHASONE SOD INJ 4 MG/ML VIAL ONE (08:45)
[2019-10-14] MEDS ORDERED: ONDANSETRON INJ 2 MG/ML 2 ML VIAL ONE (08:45)
[2019-10-14] MEDS ORDERED: NEOSTIGMINE METHYLSULFATE 1 MG/ML 10ML VIAL ONE (08:45)
[2019-10-14] MEDS ORDERED: GLYCOPYRROLATE 0.2 MG/ML VIAL ONE (08:45)
[2019-10-14] MEDS ORDERED: ROCURONIUM BROMIDE 10 MG/ML 5 ML VIAL ONE (08:45)
[2019-10-14] MEDS ORDERED: PHENYLEPHRINE 100MCG/ML 5ML SYR ONE (08:45)
--- NOTE | 2019-10-14 10:02 | Operative Report ---
Post Operative Report Pre & Post Diagnosis Operation Date: 10/14/19 07:45 Pre-Op Diagnosis: Cervical spinal stenosis with myelopathy Post-Op Diagnosis: Same I identified the patient and participated in the time-out.: Yes Procedure Operation Date: 10/14/19 07:45 Actual Procedures #1 anterior cervical corpectomy of C5 #2 anterior cervical discectomy of C6-7. #3 anterior cervical arthrodesis C4-C6 C6-C7. #4 placement of peek cage 23 mm in height C4-C6 and 6 mm at C6-7. #5 placement of locally harvested morselized autograft combined with DBM and interbody cages. #6 application of dias plate and screws from C4-C7. Surgeon Arturo Evans, DO Safety And Occupational Health Manager None Estimated Blood Loss 25 Findings Consistent with Post-Op Diagnosis Specimens None Indications This is a 64-year-old female well-known to the presents with above-mentioned diagnosis. This with marked decline in neurologic status she like to undergo the above-mentioned procedure. Description of Procedure Patient was met with identified and informed consent obtained. Patient was then taken to the operative suite underwent intubation placed in the supine position the [place]ohail table head [place] hogshead builder. All bony prominences well-padded eyes inspected to ensure no external pressure placed upon the peer at this point the anterior cervical spine was prepped and draped in normal sterile fashion. The assistance of fluoroscopy identified the C5-6 disc space and a transverse incision was placed on the right anterior aspect of the cervical spine overlying this region. Sharp dissection with the assistance of bipolar electric arteries performed down to and exposing the anterior cervical spine from C4-C7. Then performed a complete discectomy of C4-5 out to the uncovertebral joints bilaterally followed by C5-6. [place] distracting pins were then placed in C4 and C6 to distract across the C5 vertebral body. A complete corpectomy was then performed including removal of all posterior annular fibers longitudinal ligament and bilateral foraminotomies performed. Endplates then burred to subcortical bleeding bone and a 23 mm peek cage filled with local autograft and DBM tapped in position. Distraction apparatus was removed and I proceeded to C6-7. Again complete discectomy performed out to the uncovertebral joints bilaterally. [place] distracting pins again utilized. And then removed all disc fragments posterior annular some bilateral foraminotomies performed. Endplates then burred to subcortical bleeding bone and a 6 mm peek cage filled with local autograft and DBM tapped in position. Distraction apparatus was removed all anterior osteophytes burred with smooth cortical surface and a dias plate and screws applied with assistance of fluoroscopy. Incision was then copiously irrigated explored to ensure no damage to surrounding structures remaining bleeding. 10 round ARVIND drain inserted. The incision was then closed with 2 Vicryl fascia for Monocryl for final skin closure. Steri-Strip sterile dressings placed. Patient will continue PACU stable initially please note spinal cord monitoring was utilized that the procedure no changes noted. I attest to the content of the Intraoperative Record and any orders documented therein. Any exceptions are noted below.
[2019-10-14] MEDS ORDERED: LABETALOL HCL IV 5 MG/ML 20ML IV ONE (10:14)
[2019-10-14] MEDS ORDERED: ESMOLOL HCL INJ 10 MG/ML 10ML VIAL IV ONE (10:14)
--- NOTE | 2019-10-14 10:26 | Fluoroscopy Report ---
FL cervical 2-3V CLINICAL HISTORY: ACDF C6-C7 CORPECTOMY C4 COMPARISON STUDY: None. FLUOROSCOPY TIME: 9.9 seconds. FINDINGS: 3 fluoroscopic spot images of the cervical spine were submitted. Anterior cervical discecto my and fusion from C4 through C7 with a C5 corpectomy and bone graft. The hardware appears intact. IMPRESSION: Fluoroscopy provided for C4-C7 ACDF. Electronically signed by: Marek Julian M.D. 10/14/2019 10:25 AM
[2019-10-14] MEDS ORDERED: NALOXONE HCL 0.4 MG/1 ML VIAL/CARP ONE (10:33)
--- NOTE | 2019-10-14 10:56 | Anesthesiology Progress Note ---
Date of Service October 14, 2019 Anesthesia Post Procedure Vital Signs Vital Signs: Temp Pulse Pulse Resp BP Pulse Ox 10/14/19 10:40 80 18 138/88 99 10/14/19 10:30 79 18 139/94 100 10/14/19 10:21 36.0 C L 83 18 161/87 H 100 10/14/19 06:50 36.7 C 71 18 173/92 H 97 Transfer of Care Handoff Completed per policy Notes Mental Status: alert / awake / arousable Patient Amnestic to Procedure: Yes Nausea / Vomiting: adequately controlled Pain: adequately controlled Airway Patency, RR, SpO2: stable & adequate BP & HR: stable & adequate Hydration State: stable & adequate Anesthetic Complications: no major complications apparent and Pt Satisfied with anesthetic care Notes: The patient is awake and stable. Her neck does not appear swollen.
[2019-10-14] MEDS: fentaNYL citrate 100 MCG/2 ML VIAL IV PRN ×2 (11:02→11:09)
[2019-10-14] MEDS ORDERED: SOD PHOSPHATE/SOD BIPHOSPHATE ENEMA 132 ML BTL PR PRN (12:10)
[2019-10-14] MEDS ORDERED: TRAMADOL HCL 50 MG TABLET PO PRN (12:10)
[2019-10-14] MEDS ORDERED: ACETAMINOPHEN 1,000 MG/100 ML VIAL IV PRN (12:10)
[2019-10-14] MEDS ORDERED: HYDROmorphone INJ 0.5 MG/0.5 ML SYR IV PRN (12:10)
[2019-10-14] MEDS ORDERED: LORazepam 0.5 MG TAB PO PRN ×2 (12:10)
[2019-10-14] MEDS ORDERED: LORazepam 0.5 MG/1 ML VIAL IV PRN (12:10)
[2019-10-14] MEDS ORDERED: TRAZODONE HCL 50 MG TAB PO PRN (12:10)
[2019-10-14] MEDS ORDERED: DEXAMETHASONE SOD PHOSPHATE 8 MG in SYRINGE 0 ML IV PRN (12:10)
[2019-10-14] MEDS ORDERED: ALUMINUM/MAGNESIUM SUSP 30 ML UDC PO PRN (12:10)
[2019-10-14] MEDS ORDERED: RACEPINEPHRINE 2.25% NEBU SOLN 0.5 ML VIAL INH PRN (12:10)
[2019-10-14] MEDS ORDERED: PROMETHAZINE HCL 12.5 MG in SODIUM CHLORIDE 0.9% 50 ML IV PRN (12:10)
[2019-10-14] MEDS ORDERED: ACETAMINOPHEN 500 MG TAB PO PRN (12:10)
[2019-10-14] MEDS ORDERED: NALOXONE HCL 0.4 MG/1 ML VIAL/CARP IV PRN (12:10)
[2019-10-14] MEDS ORDERED: FAMOTIDINE 20 MG TAB PO PRN (12:10)
[2019-10-14] MEDS ORDERED: ONDANSETRON 4 MG OD TAB PO PRN (12:10)
[2019-10-14] MEDS ORDERED: DO NOT ADMINISTER FLU VACCINE PRN (12:10)
[2019-10-14] MEDS ORDERED: METOCLOPRAMIDE HCL INJ 5 MG/ML 2 ML VIAL IV PRN (12:10)
[2019-10-14] MEDS ORDERED: DO NOT ADMINISTER PNEUMOCOCCAL VACCINE PRN (12:10)
[2019-10-14] MEDS ORDERED: MAGNESIUM HYDROXIDE SUSP 30 ML UDC PO PRN (12:10)
[2019-10-14] MEDS: LACTATED RINGER'S 1,000 ML IV SCH ×2 (12:34→22:42)
[2019-10-14] MEDS: CEFAZOLIN 1000MG 1,000 MG/7.5 ML SYR IV SCH (15:13)
[2019-10-14] MEDS: OXYCODONE HCL IR 5 MG TAB (IMMEDIATE RELEASE) PO PRN ×2 (15:19→19:55)
[2019-10-14] MEDS ORDERED: DOCUSATE SODIUM/SENNA 50/8.6MG TAB PO SCH (21:00)
[2019-10-14] MEDS ORDERED: CITALOPRAM 40 MG TAB PO SCH (21:00)
[2019-10-15] MEDS: CEFAZOLIN 1000MG 1,000 MG/7.5 ML SYR IV SCH (00:46)
[2019-10-15] MEDS: OXYCODONE HCL IR 5 MG TAB (IMMEDIATE RELEASE) PO PRN (05:16)
[2019-10-15 05:47] LABS: Hemoglobin 12.3 g/dL (12.0-16.0); Immature Granulocytes # (auto) 0.02 K/uL (0.00-0.02); Immature Granulocytes % (auto) 0.2 %; Lymphocytes # (auto) 1.29 K/uL (1.2-3.4); Lymphocytes % (auto) 9.8 %; Mean Corpuscular Hgb Conc 32.4 g/dL (32-36); Mean Corpuscular Volume 92.7 fL (80-100); Mean Platelet Volume 9.9 fL (7.4-10.4); Monocytes # (auto) 1.03 K/uL (0.11-0.59); Monocytes % (auto) 7.8 %; Neutrophils % (auto) 82.2 %; Platelet Count 234 K/uL (130-400); RDW Coefficient of Variation 13.3 % (11.5-14.5); White Blood Count 13.14 K/uL (4.8-10.8)
[2019-10-15] MEDS ORDERED: LR 15ML/HR IV SCH (06:00)
[2019-10-15] MEDS ORDERED: CEFAZOLIN 1000MG 1,000 MG/7.5 ML SYR IV SCH (06:00)
[2019-10-15] MEDS ORDERED: ACETAMINOPHEN 500 MG TAB PO SCH (06:00)
[2019-10-15] MEDS ORDERED: GABAPENTIN 600 MG DOSE PO SCH (06:00)
[2019-10-15] MEDS ORDERED: POLYETHYLENE (MIRALAX) 17 GM PACK PO SCH (06:00)
[2019-10-15] MEDS ORDERED: CeleBREX 200 MG CAP PO SCH (06:00)
[2019-10-15 06:20] LABS: BUN Creatinine Ratio 10.6 (10-20); Calcium 9.5 mg/dl (8.5-10.1); Creatinine Clr Calc Pharmacy 55.3 ml/min; Est GFR (African American) 71.2; Est GFR (Non-African American) 61.4; Potassium 4.2 mmol/L (3.5-5.1)
--- NOTE | 2019-10-15 08:06 | Anesthesiology Progress Note ---
Date of Service October 15, 2019 Anesthesia Post Procedure Vital Signs Vital Signs: Temp Pulse Pulse Pulse Pulse Resp BP 10/15/19 07:06 87 16 10/15/19 06:36 36.6 C 79 16 109/63 10/15/19 04:40 36.5 C 87 18 122/70 10/15/19 03:25 85 14 10/15/19 02:28 36.7 C 98 H 16 10/15/19 00:47 36.7 C 100 H 16 10/14/19 23:20 82 18 10/14/19 22:40 36.9 C 95 H 16 10/14/19 20:40 36.3 C L 88 18 10/14/19 19:30 95 H 16 10/14/19 18:36 36.6 C 97 H 16 10/14/19 16:40 36.3 C L 90 16 10/14/19 15:32 80 16 10/14/19 14:39 36.6 C 73 16 10/14/19 13:41 36.5 C 85 16 10/14/19 12:49 10/14/19 12:45 36.4 C L 84 16 10/14/19 12:40 89 14 10/14/19 12:12 36.4 C L 79 16 10/14/19 11:40 36.5 C 81 16 10/14/19 11:20 36.5 C 70 13 10/14/19 11:10 84 17 10/14/19 11:00 76 13 10/14/19 10:50 78 12 10/14/19 10:40 80 18 10/14/19 10:30 79 18 10/14/19 10:21 36.0 C L 83 18 BP Pulse Ox 10/15/19 07:06 97 10/15/19 06:36 91 10/15/19 04:40 94 10/15/19 03:25 96 10/15/19 02:28 147/77 H 93 10/15/19 00:47 122/71 95 10/14/19 23:20 94 10/14/19 22:40 146/76 H 94 10/14/19 20:40 131/68 94 10/14/19 19:30 95 10/14/19 18:36 155/90 H 94 10/14/19 16:40 119/78 96 10/14/19 15:32 97 10/14/19 14:39 108/70 96 10/14/19 13:41 97/63 L 2 L 10/14/19 12:49 93 10/14/19 12:45 126/75 88 L 10/14/19 12:40 93 10/14/19 12:12 115/73 95 10/14/19 11:40 116/72 95 10/14/19 11:20 126/66 96 10/14/19 11:10 126/71 96 10/14/19 11:00 125/68 95 10/14/19 10:50 123/83 96 10/14/19 10:40 138/88 99 10/14/19 10:30 139/94 100 10/14/19 10:21 161/87 H 100 Pain Intensity Posterior Neck: Pain Intensity: 4 Notes Mental Status: alert / awake / arousable and participated in evaluation Patient Amnestic to Procedure: Yes Nausea / Vomiting: adequately controlled Pain: adequately controlled Airway Patency, RR, SpO2: stable & adequate BP & HR: stable & adequate Hydration State: stable & adequate Anesthetic Complications: no major complications apparent and Pt Satisfied with anesthetic care
--- NOTE | 2019-10-15 08:24 | Discharge Summary ---
Date of Service October 15, 2019 Admission HPI Per Admitting Provider This is a 64-year-old female presents with chronic persistent neck and arm symptoms. After failing extensive course of nonoperative care is here for surgical intervention. Principal Diagnosis Cervical spinal stenosis with myeloradiculopathy Discharge Data Allergies Allergy/AdvReac Type Severity Reaction Status Date / Time No Known Allergies Allergy Unknown Verified 10/14/19 06:39 Procedures Performed Operation Date: 10/14/19 07:45 Actual Procedures p C4-C7 Anterior Cervical Discectomy Fusion, C5 Corpectomy with Spinal Cord Monitoring(Not Applicable) - Arturo Evans DO Ordered Studies 10/14/19 07:45 FL cervical 2-3V Routine FL fluoroscopy <1hr Routine Hospital Course (1) Myelopathy concurrent with and due to spinal stenosis of cervical region: Patient underwent anterior cervical corpectomy discectomy and fusion tolerated as well as taken to orthopedic for postoperative. Postop day 1 she was swallowing well. No hoarseness. Reports improvement of her arm symptoms. Was ambulating without difficulty. Subsequently discharged home. Discharge orders instructions found in the chart for further review. Total Time Total Time Spent Total Time Spent (In Minutes): 20 minutes Discharge Plan Discharge Items Patient Disposition: Home - Self-Care Reason For Visit: Spinal Stenosis, Cervical Region Discharge Diagnosis: Cervical spinal stenosis with myelopathy Activity: As commented below Non-emergency contact: Primary Care Provider Call non-emergency contact if: you have any medication questions Follow-up/Referrals: Amarjit Mendez MD [Primary Care Provider] - Diet: Regular Addtl Attending Provider Instructions: ACTIVITY RECOMMENDATIONS: SELF CARE INSTRUCTIONS AFTER CERVICAL FUSIONS 1. No smoking. Smoking drastically decreases the chance of a solid fusion. 2. No bending, lifting more than 5 pounds, or twisting (roll like a log when turning in bed). 3. You may shower 3 days after surgery. Thoroughly dry wound. Do not soak in the tub. 4. Cervical collar: Must be worn at all times including sleeping. You may remove the brace only to bath, eat and if you are sitting in a recliner. 5. Please walk as much as you can for exercise. Gradually increase the distance that you walk as your endurance increases. SPECIAL CARE INSTRUCTIONS: VERY IMPORTANT TO READ AND REVIEW A. Do not take any anti-inflammatory medications (i.e. Indocin, Advil, Aspirin, Naprosyn, Aleve, Motrin, etc.) as these may inhibit the chance of a solid fusion. Tylenol is okay to take. B. Your surgical incision has been closed with a cosmetic suture under the skin that will dissolve in about 6 weeks. In 14 days, you can use a pair of clean scissors and cut the suture that is left outside of the skin at the ends of your incision. C. Complications are uncommon, but please contact us if you have any signs or symptoms of: 1. wound infection (fever higher than 102.5 degrees F, redness, separation of wound, drainage, or increasing pain from the incision) 2. blood clots in legs (pain, swelling, redness and warmth in legs) 3. urinary tract infection (fever higher than 102.5 degrees, burning upon urination or increased frequency of urination) 4. nerve problems (inability to walk on your toes or heels, numbness, loss of bowel or bladder control) 5. any other symptoms that concern you. D. Please call the office at if you have any concerns or questions about your operation or recovery. MANAGING PAIN AFTER SPINAL SURGERY 1. Narcotic medication is intended for short-term use and will be provided for surgical pain. Surgical pain usually lasts for a period of 4-6 weeks. Narcotic medication includes Percocet, Vicodin, Darvocet, Tylenol #3 or Lortab. 2. Longer-term pain is more appropriately treated with non-narcotic medication such as Tylenol ES. 3. Muscle spasm is not appropriately treated with narcotics. Muscle relaxers such as Soma, Flexeril or Skelaxin can be used along with Tylenol ES. 4. Remember that we all live with some "aches and pains". This is not unusual or uncommon after an injury or as we get older. 5. We will provide appropriate medication within the normal guidelines of their prescribed use. We will also be very cautious and aware of potential abuse and extended duration of patients' medication needs. 6. Please allow 2-3 days to process refills. Prescriptions will not be mailed but must be picked up at the office. FOLLOW UP VISIT: Keep your scheduled follow-up appointment. Any questions, please call the office at . Pending Studies at Discharge: No Stand-Alone Forms: [facility], Smoking Cessation Medications and DC Order Prescriptions: New hydrocodone-acetaminophen 5-325 mg tablet See Rx Instructions .ROUTE .COMPLEX PRN (Reason: pain) Qty: 20 RF: 0 Continued pantoprazole 40 mg Tablet,Delayed Release (Dr/Ec) 40 mg PO QAM RF: 0 diphenhydramine HCl [Benadryl] 25 mg Capsule 25 mg PO Q4H PRN (Reason: ALLERGIES) RF: 0 citalopram 40 mg Tablet 40 mg PO HS RF: 0 trazodone 50 mg Tablet 50 mg PO HS PRN (Reason: Sleep) RF: 0 lorazepam 0.5 mg Tablet 0.5 mg PO BID PRN (Reason: Anxiety) RF: 0 Discontinued naproxen 500 mg Tablet 500 mg PO BID PRN (Reason: PAIN) RF: 0 Discharge Orders: Discharge Order (Routine); Ordered 10/15/19 Ordered By: Arturo Evans Admission Data Admit Date/Time: 10/14/19 10:47 Attending Provider: Arturo Evans Admit Provider: Arturo Evans Primary Care Provider: Amarjit Mendez
[2019-10-15] MEDS ORDERED: DEXAMETHASONE SOD PHOSPHATE 8 MG in SYRINGE 0 ML IV STA (08:29)
[2019-10-15] MEDS ORDERED: PANTOprazole 40 MG TAB PO SCH (09:00)
[2019-10-16] MEDS ORDERED: BISACODYL 10 MG SUPP PR PRN (10:03)
== END 2019-10-15 11:57 | disposition home or self-care (01) ==
LOC: 3E 06:10 → ASU 06:10

== ENCOUNTER 2021-03-31 07:10 | Observation (INO) ==
--- NOTE | 2021-03-08 09:43 | PAT Medication Instructions ---
Medication Instructions Date of Service March 08, 2021 Home Medications diphenhydramine HCl [Benadryl] 25 mg PO Q4H PRN pantoprazole 40 mg PO QAM citalopram 40 mg PO HS lorazepam 0.5 mg PO BID PRN trazodone 50 mg PO HS PRN atorvastatin 10 mg PO HS DO NOT take the morning of surgery diphenhydramine HCl [Benadryl] 25 mg PO Q4H PRN Take morning of surgery With a small sip of water, OTHERWISE NOTHING TO EAT OR DRINK AFTER MIDNIGHT: pantoprazole 40 mg PO QAM lorazepam 0.5 mg PO BID PRN (if needed) Take evening before surgery diphenhydramine HCl [Benadryl] 25 mg PO Q4H PRN (if needed) citalopram 40 mg PO HS lorazepam 0.5 mg PO BID PRN (if needed) trazodone 50 mg PO HS PRN (if needed) atorvastatin 10 mg PO HS Other Notes If you have any questions please call us at [phone] or [phone] or [phone] or [phone]
--- NOTE | 2021-03-09 13:41 | Anesthesiology Consultation ---
Date of Service March 09, 2021 Assessment & Plan (1) Encounter for pre-operative examination: Chart Review Chart Review: Acceptable Risk for Surgery (pending preop Covid testing results ) and Patient seen in Pre Admission Testing Per PAT appt on 03/09/21, patient denies any recent travel. No known Covid positive contacts or Covid related symptoms. No known Covid infection in the past 90 days. Educated patient to follow up with surgeon's office regarding Covid testing. Educated on importance of self quarantining, social distancing and wearing mask in public both for the patient and household contacts. Pt fully vaccinated. C6-C7 Anterior Cervical Discectomy Fusion, C4 Corpectomy 10/14/19= Done under [facility] with Grade 1 view with MAC #3. No anesthesia issues noted per anesthesia record. Teaching & Discussion Pre-Anesthesia Teaching/Discussion Notes: Instructed NPO after midnight before surgery,except medications with 15 cc of water. Medication instructions provided according to the PAT guidelines. History Surgery Operation Date: 03/31/21 12:45 Proposed Procedures p Left Total Knee Arthroplasty(Left) - Quinton Heller DO Height/Weight Height: 5 ft 3 in Weight: 68.5 kg Allergies Allergy/AdvReac Type Severity Reaction Status Date / Time No Known Allergies Allergy Unknown Verified 03/08/21 09:01 Medications Home Medications Medication Instructions Recorded Confirmed Last Taken diphenhydramine HCl [Benadryl] 25 mg PO Q4H PRN 05/22/19 03/08/21 10/12/19 pantoprazole 40 mg PO QAM 05/22/19 03/08/21 10/14/19 05:15 citalopram 40 mg PO HS 09/17/19 03/08/21 10/13/19 22:00 lorazepam 0.5 mg PO BID PRN 09/17/19 03/08/21 10/13/19 22:00 trazodone 50 mg PO HS PRN 09/17/19 03/08/21 10/12/19 atorvastatin 10 mg PO HS 03/08/21 03/08/21 Unknown Past Medical History Medical History Anxiety and depression Environmental allergies POLLEN Fibromyalgia GERD (gastroesophageal reflux disease) Well controlled and stable Hyperlipidemia Migraine hx Osteoarthritis Lumbar area Spinal stenosis Temporomandibular joint disorder Clicks, has never locked. Umbilical hernia present Exercise / Class Metabolic Activity II 4-5 Yardwork/Stairs/Walk up hill (one flight of stairs - no chest pain or SOB ) Past Family History Family History Other No significant family history Past Surgical History Surgical History H/O bilateral breast reduction surgery History of breast biopsy negative History of cataract surgery bilat History of colonoscopy History of esophagogastroduodenoscopy (EGD) History of laminectomy LUMBAR History of nasal septoplasty Hx of fusion of cervical spine C4-6 > ROM WNL S/P arthroscopic partial lateral meniscectomy LEFT S/P trigger finger release both hands [place] teeth removed Past Anesthesia History No Hx of Anesthesia Complications and No Family Hx of Anesthesia Complications History of PONV No Hx of PONV and No Hx of Motion Sickness Social History Smoking Status: Never smoker Do You Dip or Chew Tobacco: No Hx Alcohol Use: No Hx Substance Use: No substance use type: does not use Review of Systems Patient denies chest pain, shortness of breath, dyspnea on exertion, cough, wheezing, palpitations. No hx of seizures, stroke, DC, apnea/snoring. No hx of blood clots or blood transfusions Physical Exam Vital Signs VITALS BP 150/82 (manually)- usually 120-130s systolically per patient P 73 TEMP 98.2 SP02 97% RESP 16 Constitutional no acute distress ENMT Mouth: no TMJ clicking Thyromental Distance: > or= 3.5 Finger Breadths (3.5) Mallampati Class: II Missing molar Cap/crowns on molars Neck + limited neck extension (mild to moderate ) Respiratory normal respiratory effort; no respiratory distress Auscultation: lungs clear to auscultation bilaterally; no wheezes Cardiovascular Rate/Rhythm: regular rate and regular rhythm Heart Sounds: no murmur Vessels: no carotid bruit Musculoskeletal Spine: no pain with cervical ROM Extremities: extremities normal to inspection Psychiatric Orientation: alert Testing Laboratory Results 03/09/21 14:08 03/09/21 14:08 PT 10.0 Seconds (9.0-12.0) 03/09/21 14:08 INR 1.0 (0.9-1.1) 03/09/21 14:08 APTT 24.2 Seconds (21.0-31.0) 03/09/21 14:08 Hemoglobin A1c 5.3 % (4.5-5.6) 03/09/21 14:08 Urine Color Yellow 03/09/21 14:08 Urine Appearance Clear (Clear) 03/09/21 14:08 Urine pH 6.5 (4.5-7.5) 03/09/21 14:08 Ur Specific [place] 1.007 (1.000-1.030) 03/09/21 14:08 Urine Protein Negative (Negative) 03/09/21 14:08 Urine Glucose (UA) Negative (Negative) 03/09/21 14:08 Urine Ketones Negative (Negative) 03/09/21 14:08 Urine Nitrite Negative (Negative) 03/09/21 14:08 Ur Leukocyte Esterase Trace (Negative) H 03/09/21 14:08 Urine WBC (Auto) 5-10 /hpf (0-5) H 03/09/21 14:08 Urine RBC (Auto) 0-4 /hpf (0-4) 03/09/21 14:08 U Hyaline Cast (Auto) 1-5 /lpf (0-5) 03/09/21 14:08 U Epithel Cells (Auto) >30 /lpf (0-5) H 03/09/21 14:08 Urine Bacteria (Auto) Negative (Negative) 03/09/21 14:08 Blood Type AB Positive 03/09/21 14:08 Antibody Screen NEGATIVE 03/09/21 14:08 Electrocardiogram Date: 03/09/21 Findings: + NSR @ (72bpm) Normal EKG per cardio. Chest X-Ray Date: 03/09/21 Findings: + NAD
--- NOTE | 2021-03-09 14:32 | XRay Report ---
XR chest Pre-admission PA/Lat HISTORY: Back pain. Preop. COMPARISON: Chest 10/01/2019. FINDINGS: No pneumothorax. No pleural effusions. The heart is normal in size. No focal lung consolida tions to suggest pneumonia. No evidence for pulmonary edema. Cervical spinal fusion hardware is noted . IMPRESSION: No acute process. ACT 112: Negative or not required by law. Electronically signed by: Marek Julian M.D. 03/09/2021 2:31 PM
[2021-03-09 15:30] LABS: Basophils # (auto) 0.02 K/uL (0-0.2); Basophils % (auto) 0.4 %; Eosinophils # (auto) 0.27 K/uL (0-0.5); Eosinophils % (auto) 4.7 %; Hematocrit (blood only) 39.3 % (37-47); Hemoglobin 13.2 g/dL (12.0-16.0); Immature Granulocytes # (auto) 0.01 K/uL (0.00-0.02); Immature Granulocytes % (auto) 0.2 %; Lymphocytes # (auto) 2.08 K/uL (1.2-3.4); Lymphocytes % (auto) 36.5 %; Mean Corpuscular Hemoglobin 29.6 pg (25-34); Mean Corpuscular Hgb Conc 33.6 g/dL (32-36); Mean Corpuscular Volume 88.1 fL (80-100); Mean Platelet Volume 10.7 fL (7.4-10.4); Monocytes # (auto) 0.37 K/uL (0.11-0.59); Monocytes % (auto) 6.5 %; Neutrophils # (auto) 2.95 K/uL (1.4-6.5); Neutrophils % (auto) 51.7 %; Platelet Count 224 K/uL (130-400); RDW Coefficient of Variation 13.2 % (11.5-14.5); RDW Standard Deviation 42.7 fL (36.4-46.3); Red Blood Count 4.46 M/uL (4.2-5.4)
[2021-03-09 15:51] LABS: Albumin Level 3.4 gm/dl (3.4-5.0); BUN Creatinine Ratio 18.2 (10-20); Calcium 8.8 mg/dl (8.5-10.1); Est GFR (African American) 85.5; Est GFR (Non-African American) 73.7
[2021-03-09 15:53] LABS: Partial Thromboplastin Ratio 0.9; Partial Thromboplastin Time 24.2 Seconds (21.0-31.0)
[2021-03-09 15:57] LABS: Appearance Urine Clear (Clear); Bacteria Urine Automated Negative (Negative); Bilirubin Urine Negative (Negative); Blood Urine Negative (Negative); Color Urine Yellow; Epithelial Cell Urine Auto >30 /lpf (0-5); Glucose Urine UA Negative (Negative); Ketones Urine Negative (Negative); Leukocyte Esterase Urine Trace (Negative); Nitrite Urine Negative (Negative); Protein Urine Negative (Negative); RBC Urine Automated 0-4 /hpf (0-4); Specific Gravity Urine 1.007 (1.000-1.030); Urobilinogen Urine Negative (Negative); pH Urine 6.5 (4.5-7.5)
[2021-03-10 06:13] LABS: Estimated Average Glucose 105 mg/dl; Hemoglobin A1C 5.3 % (4.5-5.6)
--- NOTE | 2021-03-10 15:59 | Electrocardiogram Report ---
Test Reason : Blood Pressure : / mmHG Vent. Rate : 072 BPM Atrial Rate : 072 BPM P-R Int : 172 ms QRS Dur : 082 ms QT Int : 404 ms P-R-T Axes : 080 083 079 degrees QTc Int : 442 ms Normal sinus rhythm Normal ECG When compared with ECG of 22-MAY-2019 13:21, No significant change was found Confirmed by Scot Calvert ([id number]) on 03/10/2021 3:59:10 PM Referred By: Quinton Heller Confirmed By:Scot Calvert
--- NOTE | 2021-03-22 08:30 | History & Physical Report ---
Date of Service March 22, 2021 date of surgery: 03/31/21 Procedure: Left Total Knee Arthroplasty Assessment & Plan (1) Arthritis of knee, left: Further care discussed with patient and at this point in time has failed conservative measures and would like to proceed with a left total knee repla cement. Plan on discharge will be home with home health physical therapy. DVT prophalaxis with TEDs, SCDs and will also place on aspirin 81 mg p.o. b.i.d. for a month postop. Patient will have follow up appointment in our office two weeks post op for staple/suture removal and re-evaluation. Patient otherwise has no other questions or concerns. The risks and benefits have been discussed including, but not limited to, risk of infection, nerve injury, stiffness, loss of motion, failure to improve, etc. Reasonable outcomes and options of treatment were discussed. An explanation of appropriate alternatives to the procedure that may be advantageous were discussed and their risks and benefits, as well as the risks and benefits of not proceeding with treatment. I offered to answer any additional inquiries concerning the treatment involved. All the patient's questions were answered. The patient is agreeable, understanding of the treatment plan and alternatives, and wishes to proceed with the treatment plan. History of Present Illness Chief Complaint: left knee pain Primary Care Provider: Amarjit Mendez MD Cristal is a 75 year old female who complains of left knee pain, presents for pre-op evaluation prior to a left total knee replacement by Dr Tong at [facility]. She has complaints of pain, decreased range of motion, instability and stiffness in her left knee. Currently the patient states that the symptoms are moderate- severe. The pain is described as aching, sharp and throbbing. The symptoms are aggravated by ascending stairs, daily activities, first steps while awake walking. Prior NSAIDs include IBU and Aleve. she has been treated with previous cortisone injections in the past without much relief. she had previous left knee scope with partial medial menisectomy and aspiration popliteal cyst by dr tong 03/2019. Allergies Allergy/AdvReac Type Severity Reaction Status Date / Time No Known Allergies Allergy Unknown Verified 03/08/21 09:01 Home Medications Medication Instructions Recorded Confirmed Type diphenhydramine HCl [Benadryl] 25 mg PO Q4H PRN 05/22/19 03/08/21 History pantoprazole 40 mg PO QAM 05/22/19 03/08/21 History citalopram 40 mg PO HS 09/17/19 03/08/21 History lorazepam 0.5 mg PO BID PRN 09/17/19 03/08/21 History trazodone 50 mg PO HS PRN 09/17/19 03/08/21 History atorvastatin 10 mg PO HS 03/08/21 03/08/21 History Past Med/Surg History Medical History Anxiety and depression Environmental allergies POLLEN Fibromyalgia GERD (gastroesophageal reflux disease) Well controlled and stable Hyperlipidemia Migraine hx Osteoarthritis Lumbar area Spinal stenosis Temporomandibular joint disorder Clicks, has never locked. Umbilical hernia present Surgical History H/O bilateral breast reduction surgery History of breast biopsy negative History of cataract surgery bilat History of colonoscopy History of esophagogastroduodenoscopy (EGD) History of laminectomy LUMBAR History of nasal septoplasty Hx of fusion of cervical spine C4-6 > ROM WNL S/P arthroscopic partial lateral meniscectomy LEFT S/P trigger finger release both hands [place] teeth removed Family History Other No significant family history Social History Smoking Status: Never smoker Second Hand Exposure: No; Do You Dip or Chew Tobacco: No; Tobacco Cessation Education Requested by Patient: No Hx Alcohol Use: No Hx Substance Use: No Preferred Language: Pakistani Communication Ability: Effective 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 Beliefs That Will Affect Care: None Current Living Situation: Spouse Other Information That Helps Us Care for You: No Feels Safe at Home: Yes Safety Concerns: Feels Safe At This Time Assistive Devices: None Review of Systems Review of Systems: All systems reviewed & are unremarkable except as noted in HPI & below Constitutional: no fever, no chills and no sweats Respiratory: no cough and no dyspnea Cardiovascular: no chest pain, no dyspnea and no orthopnea Gastrointestinal: no abdominal pain, no nausea and no vomiting Musculoskeletal: as per Subjective / HPI Physical Exam Physical Exam: HT: 5ft 3in WT: 68.5kg Constitutional: WD/WN, vitals as above no acute distress Respiratory: normal respiratory effort, lungs clear to auscultation no respiratory distress, no labored breathing and does not use accessory muscles Cardiovascular: RRR, no murmur, no edema Gastrointestinal (Abdomen): normal bowel sounds, soft, nontender, no hepatosplenomegaly Musculoskeletal: Knee: + knee abnormal to inspection (LEFT KNEE), + effusion (+1 effusion), + surgical incision (well healed portals), + limited ROM of knee (ROM 0/3/110), + knee ROM with crepitation, + joint line tenderness (medial joint line) and + Viviane's sign positive; no deformity, no skin erythema, no ecchymosis, no valgus laxity, no varus laxity, anterior drawer test negative, Dolores's sign negative and pivot shift test negative Results & Data Results & Data ([facility]) Laboratory Results Laboratory Results WBC 5.70 K/uL (4.8-10.8) 03/09/21 14:08 RBC 4.46 M/uL (4.2-5.4) 03/09/21 14:08 Hgb 13.2 g/dL (12.0-16.0) 03/09/21 14:08 Hct 39.3 % (37-47) 03/09/21 14:08 MCV 88.1 fL (80-100) 03/09/21 14:08 MCH 29.6 pg (25-34) 03/09/21 14:08 MCHC 33.6 g/dL (32-36) 03/09/21 14:08 RDW Std Deviation 42.7 fL (36.4-46.3) 03/09/21 14:08 RDW Coeff of Airam 13.2 % (11.5-14.5) 03/09/21 14:08 Plt Count 224 K/uL (130-400) 03/09/21 14:08 MPV 10.7 fL (7.4-10.4) H 03/09/21 14:08 Immature Gran % (Auto) 0.2 % 03/09/21 14:08 Neut % (Auto) 51.7 % 03/09/21 14:08 Lymph % (Auto) 36.5 % 03/09/21 14:08 [place] % (Auto) 6.5 % 03/09/21 14:08 Eos % (Auto) 4.7 % 03/09/21 14:08 Baso % (Auto) 0.4 % 03/09/21 14:08 Neut # (Auto) 2.95 K/uL (1.4-6.5) 03/09/21 14:08 Lymph # (Auto) 2.08 K/uL (1.2-3.4) 03/09/21 14:08 [place] # (Auto) 0.37 K/uL (0.11-0.59) 03/09/21 14:08 Eos # (Auto) 0.27 K/uL (0-0.5) 03/09/21 14:08 Baso # (Auto) 0.02 K/uL (0-0.2) 03/09/21 14:08 Immature Gran # (Auto) 0.01 K/uL (0.00-0.02) 03/09/21 14:08 PT 10.0 Seconds (9.0-12.0) 03/09/21 14:08 INR 1.0 (0.9-1.1) 03/09/21 14:08 APTT 24.2 Seconds (21.0-31.0) 03/09/21 14:08 PTT Ratio 0.9 03/09/21 14:08 Sodium 145 mmol/L (136-145) 03/09/21 14:08 Potassium 4.0 mmol/L (3.5-5.1) 03/09/21 14:08 Chloride 113 mmol/L (98-107) H 03/09/21 14:08 Carbon Dioxide 27 mmol/L (21-32) 03/09/21 14:08 Anion Gap 5.0 (3-11) 03/09/21 14:08 BUN 14 mg/dl (7-18) 03/09/21 14:08 Creatinine 0.79 mg/dl (0.6-1.2) 03/09/21 14:08 Est Cr Clr Drug Dosing 58.0 ml/min 03/09/21 14:08 Est GFR ( Amer) 85.5 03/09/21 14:08 Est GFR (Non-Af Amer) 73.7 03/09/21 14:08 BUN/Creatinine Ratio 18.2 (10-20) 03/09/21 14:08 Glucose 113 mg/dl (70-99) H 03/09/21 14:08 Estimat Average Glucose 105 mg/dl 03/09/21 14:08 Hemoglobin A1c 5.3 % (4.5-5.6) 03/09/21 14:08 Calcium 8.8 mg/dl (8.5-10.1) 03/09/21 14:08 Albumin 3.4 gm/dl (3.4-5.0) 03/09/21 14:08 Urine Color Yellow 03/09/21 14:08 Urine Appearance Clear (Clear) 03/09/21 14:08 Urine pH 6.5 (4.5-7.5) 03/09/21 14:08 Ur Specific [place] 1.007 (1.000-1.030) 03/09/21 14:08 Urine Protein Negative (Negative) 03/09/21 14:08 Urine Glucose (UA) Negative (Negative) 03/09/21 14:08 Urine Ketones Negative (Negative) 03/09/21 14:08 Urine Blood Negative (Negative) 03/09/21 14:08 Urine Nitrite Negative (Negative) 03/09/21 14:08 Urine Bilirubin Negative (Negative) 03/09/21 14:08 Urine Urobilinogen Negative (Negative) 03/09/21 14:08 Ur Leukocyte Esterase Trace (Negative) H 03/09/21 14:08 Urine WBC (Auto) 5-10 /hpf (0-5) H 03/09/21 14:08 Urine RBC (Auto) 0-4 /hpf (0-4) 03/09/21 14:08 U Hyaline Cast (Auto) 1-5 /lpf (0-5) 03/09/21 14:08 U Epithel Cells (Auto) >30 /lpf (0-5) H 03/09/21 14:08 Urine Bacteria (Auto) Negative (Negative) 03/09/21 14:08 Blood Type AB Positive 03/09/21 14:08 Antibody Screen NEGATIVE 03/09/21 14:08 Impressions Chest X-Ray 03/09/21 08:59 XR chest Pre-admission PA/Lat HISTORY: Back pain. Preop. COMPARISON: Chest 10/01/2019. FINDINGS: No pneumothorax. No pleural effusions. The heart is normal in size. No focal lung consolidations to suggest pneumonia. No evidence for pulmonary edema. Cervical spinal fusion hardware is noted. IMPRESSION: No acute process. ACT 112: Negative or not required by law. Electronically signed by: Marek Julian M.D. 03/09/2021 2:31 PM Diagnostic Findings Left Knee X-ray: left knee series confirm degenerative changes to the left knee, greatest medial compartments and patellofemoral joint, showing joint space narrowing, osteophyte formation and subchondral sclerosis. no acute bony pathology noted.
[~2021-03-31 07:10] MED LIST changes: +ACETAMINOPHEN 500 MG TAB PO SCH; -ATROPINE SULFATE 0.1 MG/ML 5ML SYR IV PRN; +BUPIVACAINE 0.5 % 5 MG/1 ML PF 10ML VIAL ONE; -BUPIVACAINE/EPINEPHRINE 0.5% MPF 1:200,000 30 ML VIAL ONE; -CEFAZOLIN 1000MG IV PUSH 5 ML IV SCH; -CITA40TA4 PO; +CeleBREX 200 MG CAP PO SCH; -DIPH25CA5 PO; -EpHEDrine SULFATE INJ 50 MG/ML AMP IV PRN; +FAMOTIDINE 20 MG TAB PO SCH; -FENTANYL CITRATE INJ 50 MCG/1 ML 2 ML VIAL IV PRN; -FENTANYL CITRATE INJ 50 MCG/1 ML 2 ML VIAL ONE; -GABA-113 PO; +GABAPENTIN 300 MG CAP PO SCH; -HYDR-5688 PO; -HYDROCODONE/ACETAMOPHEN 5/325MG TAB PO PRN; -LACTATED RINGER'S 1000ML 1,000 ML IV SCH; -LIDOCAINE HCL 1% 20 ML VIAL ONE; -LIDOCAINE HCL 2% 2 ML VIAL (20MG/ML) ONE; -LIDOCAINE/EPINEPHRINE 1% INJ 50 ML VIAL ONE; +LR 500ML BOLUS, THEN 15ML/HR IV SCH; -METHYLPREDNISOLONE ACETATE 80 MG/ML VIAL ONE; +METOCLOPRAMIDE HCL 10 MG TABLET PO SCH; -MIDAZOLAM HCL 1 MG/ML 2ML VIAL ONE; -ONDANSETRON INJ 2 MG/ML 2 ML VIAL IV PRN; -PROPOFOL IV EMULSION 10 MG/ML 20 ML VIAL IV ONE; -RAME8TAB18 PO; +ROPIVACAINE 0.5% HCL/PF 150 MG, BUPIVACAINE 0.75% MPF 20 ML, EPINEPHrine 30MG/30ML (OR ... INFIL SCH; -SODIUM CHLORIDE 0.9% 1000ML 1,000 ML IV SCH; +TRANEXAMIC ACID 1,000 MG **IV Intra-op IV SCH; +TRANEXAMIC ACID 1,000 MG **IV Pre-op IV SCH; +ceFAZolin 2000MG 2,000 MG/15 ML SYR IV SCH
[2021-03-31] MEDS ORDERED: MIDAZOLAM HCL 1 MG/ML 2ML VIAL ONE (07:37)
[2021-03-31] MEDS ORDERED: fentaNYL citrate 100 MCG/2 ML VIAL ONE (07:38)
--- NOTE | 2021-03-31 08:22 | History & Physical Bridge Note ---
Date of Service March 31, 2021 History & Physical Bridge Note I have examined the patient, reviewed the History & Physical and in the interval since the performance of the History & Physical I have noted the following changes of clinical significance: no changes noted
[2021-03-31] MEDS ORDERED: ORTHO JOINT ANESTHETIC ONE (08:28)
[2021-03-31] MEDS ORDERED: fentaNYL citrate 100 MCG/2 ML VIAL IV PRN (08:39)
[2021-03-31] MEDS ORDERED: ePHEDrine sulfate 50 MG/ML AMP IV PRN (08:39)
[2021-03-31] MEDS ORDERED: ONDANSETRON INJ 2 MG/ML 2 ML VIAL IV PRN ×2 (08:39→12:31)
[2021-03-31] MEDS ORDERED: ATROPINE SULFATE 0.1 MG/ML 10ML SYR IV PRN (08:39)
[2021-03-31] MEDS ORDERED: LIDOCAINE HCL 2% 2 ML VIAL/AMP(20MG/ML) INFIL ONE (09:47)
[2021-03-31] MEDS ORDERED: PROPOFOL IV EMULSION 10 MG/ML 20 ML VIAL IV ONE (09:47)
[2021-03-31] MEDS ORDERED: ONDANSETRON INJ 2 MG/ML 2 ML VIAL ONE (09:47)
--- NOTE | 2021-03-31 10:48 | Operative Report ---
Post Operative Report Pre & Post Diagnosis Operation Date: 03/31/21 09:30 Pre-Op Diagnosis: Osteoarthritis, Left Knee Post-Op Diagnosis: Osteoarthritis, Left Knee I identified the patient and participated in the time-out.: Yes Procedure Operation Date: 03/31/21 09:30 Actual Procedures p Left Total Knee Arthroplasty(Left utilizing [employer] journey to nonblock total knee arthroplasty size 3 femur size 2 tibia size 9 poly-/29 oval patella) - Quinton Heller DO Surgeon Quinton Heller DO Desk Top Publisher Osmani BACON Estimated Blood Loss 5 Findings Consistent with Post-Op Diagnosis Patient presents with severe end-stage tricompartmental degenerative joint disease [id number] eburnated bone marginal osteophyte subchondral sclerosis lot large effusion Specimens Bone and cartilage Drains Medium bore Hemovac Anesthesia Type MAC Spinal Regional Complications none Disposition Accompanied Patient To Recovery: No Disposition: Recovery Room Indications After proper prepping and draping of the left lower extremity anterior midline incision was made over the region of the extensor extensor mechanism after meticulous hemostasis was obtained and maintained in subcutaneous tissues a medial parapatellar incision was made The patella was subluxed lateralward the medial lateral gutter were cleaned from any hypertrophic synovitis and scar tissue of the distal femoral block was placed and the distal femoral osteotomy cut was made subsequently the chamfers anterior and posterior osteotomy cuts were made utilizing the 4-in-1 block the tibia was subsequently subluxed anteriorward medial and ateral meniscal remnants were excised in their entirety remnants of the anterior and posterior cruciate ligaments were excised in their entirety excellent exposure of the proximal tibia was obtained the tibial osteotomy guide was placed on the proximal tibial osteotomy cut was made once again the knee was irrigated with copious amounts of sterile saline solution the patella was subsequently everted lateralward thickened scar tissue around the patella was removed the patella was subsequently cut utilizing a freehand technique and was drilled prepared for final preparation and placement of patella socially flexion-extension gaps were checked and the equal and symmetric trials were placed to the appropriate femoral and tibial trials with poly-spacer being placed for equal flexion and extension gaps and full range of motion including extension to 0 and flexion to 140 the trial components after having been taken to recovery range of motion was subsequently removed meticulous hemostasis was obtained and maintained subsequently a knee block injection of joint cocktail including ropivacaine 0.5% 150 mg. Bupivacaine 0.5% epinephrine 1-200,030 mL's toradol 30 mg dexamethasone 4 mg ketamine 10 mg clonidine 100 micrograms normal saline solution 30 mg was infiltrated into the soft tissues of the posterior knee medial lateral gutters and periosteal synovium special attention was paid to protect neurovascular structures at all times subsequently trial components having been removed the knee was irrigated with sterile saline solution. debris was removed the proximal tibia was subsequently prepared and was made ready for the placement of the tibial component tibial component was also cemented and tamped into position the femoral component was subsequently placed and cemented in the position the patellar component was subsequently cemented in position because hemostasis once again obtained and maintained wound having been thoroughly irrigated with debridement and debridement lavage was performed as well as a medial parapatellar incision closed with #1 Vicryl in interrupted fashion subcutaneous was closed with #2 Vicryl skin was closed with skin clips. PA-C was necessary for prepping and drapping as well as wound closure of deep fascia Sub cutaneous tissue and skin and was necessary for the case. A sterile compressive dressing was placed patient was taken to recovery in stable condition of report dictated by Arron Rhodes attest to the content of the Intraoperative Record and any orders documented therein. Any exceptions are noted below. Description of Procedure After proper prepping and draping of the left lower extremity anterior midline incision was made over the region of the extensor extensor mechanism after meticulous hemostasis was obtained and maintained in subcutaneous tissues a medial parapatellar incision was made The patella was subluxed lateralward the medial lateral gutter were cleaned from any hypertrophic synovitis and scar tissue of the distal femoral block was placed and the distal femoral osteotomy cut was made subsequently the chamfers anterior and posterior osteotomy cuts were made utilizing the 4-in-1 block the tibia was subsequently subluxed anteriorward medial and ateral meniscal remnants were excised in their entirety remnants of the anterior and posterior cruciate ligaments were excised in their entirety excellent exposure of the proximal tibia was obtained the tibial osteotomy guide was placed on the proximal tibial osteotomy cut was made once again the knee was irrigated with copious amounts of sterile saline solution the patella was subsequently everted lateralward thickened scar tissue around the patella was removed the patella was subsequently cut utilizing a freehand technique and was drilled prepared for final preparation and placement of patella socially flexion-extension gaps were checked and the equal and symmetric trials were placed to the appropriate femoral and tibial trials with poly-spacer being placed for equal flexion and extension gaps and full range of motion including extension to 0 and flexion to 140 the trial components after having been taken to recovery range of motion was subsequently removed meticulous hemostasis was obtained and maintained subsequently a knee block injection of joint cocktail including ropivacaine 0.5% 150 mg. Bupivacaine 0.5% epinephrine 1-200,030 mL's toradol 30 mg dexamethasone 4 mg ketamine 10 mg clonidine 100 micrograms normal saline solution 30 mg was infiltrated into the soft tissues of the posterior knee medial lateral gutters and periosteal synovium special attention was paid to protect neurovascular structures at all times subsequently trial components having been removed the knee was irrigated with sterile saline solution. debris was removed the proximal tibia was subsequently prepared and was made ready for the placement of the tibial component tibial component was also cemented and tamped into position the femoral component was subsequently placed and cemented in the position the patellar component was subsequently cemented in position because hemostasis once again obtained and maintained wound having been thoroughly irrigated with debridement and debridement lavage was performed as well as a medial parapatellar incision closed with #1 Vicryl in interrupted fashion subcutaneous was closed with #2 Vicryl skin was closed with skin clips. PA-C was necessary for prepping and drapping as well as wound closure of deep fascia Sub cutaneous tissue and skin and was necessary for the case. A sterile compressive dressing was placed patient was taken to recovery in stable condition of report dictated by Arron I attest to the content of the Intraoperative Record and any orders documented therein. Any exceptions are noted below. I attest to the content of the Intraoperative Record and any orders documented therein. Any exceptions are noted below.
--- NOTE | 2021-03-31 10:50 | Operative Report ---
Post Operative Report Pre & Post Diagnosis Operation Date: 03/31/21 09:30 Pre-Op Diagnosis: Osteoarthritis, Left Knee Post-Op Diagnosis: Osteoarthritis, Left Knee I identified the patient and participated in the time-out.: Yes Procedure Operation Date: 03/31/21 09:30 Actual Procedures p Left Total Knee Arthroplasty(Left) utilizing [employer] journey to nonblock total knee arthroplasty size 3 femur to tibia 9 polyethylene 29 oval patella- Quinton Heller DO Surgeon Quinton Heller DO Fruit Peeler Osmani BACON Estimated Blood Loss 5 Findings Consistent with Post-Op Diagnosis This without eburnated [id number] subchondral sclerosis marginal osteophytes large effusion Specimens Bone and cartilage Drains Medium bore Hemovac Anesthesia Type MAC Spinal Regional Complications none Disposition Accompanied Patient To Recovery: No Disposition: Recovery Room Indications Patient presents with severe end-stage DJD left knee no response to conservative management if attempted corticosteroid injection Visco supplementation relative rest activity modification Visco supplementation bracing Description of Procedure After proper prepping and draping of the left lower extremity anterior midline incision was made over the region of the extensor extensor mechanism after meticulous hemostasis was obtained and maintained in subcutaneous tissues a medial parapatellar incision was made The patella was subluxed lateralward the medial lateral gutter were cleaned from any hypertrophic synovitis and scar tissue of the distal femoral block was placed and the distal femoral osteotomy cut was made subsequently the chamfers anterior and posterior osteotomy cuts were made utilizing the 4-in-1 block the tibia was subsequently subluxed anteriorward medial and ateral meniscal remnants were excised in their entirety remnants of the anterior and posterior cruciate ligaments were excised in their entirety excellent exposure of the proximal tibia was obtained the tibial osteotomy guide was placed on the proximal tibial osteotomy cut was made once again the knee was irrigated with copious amounts of sterile saline solution the patella was subsequently everted lateralward thickened scar tissue around the patella was removed the patella was subsequently cut utilizing a freehand te chnique and was drilled prepared for final preparation and placement of patella socially flexion-extension gaps were checked and the equal and symmetric trials were placed to the appropriate femoral and tibial trials with poly-spacer being placed for equal flexion and extension gaps and full range of motion including extension to 0 and flexion to 140 the trial components after having been taken to recovery range of motion was subsequently removed meticulous hemostasis was obtained and maintained subsequently a knee block injection of joint cocktail including ropivacaine 0.5% 150 mg. Bupivacaine 0.5% epinephrine 1-200,030 mL's toradol 30 mg dexamethasone 4 mg ketamine 10 mg clonidine 100 micrograms normal saline solution 30 mg was infiltrated into the soft tissues of the posterior knee medial lateral gutters and periosteal synovium special attention was paid to protect neurovascular structures at all times subsequently trial components having been removed the knee was irrigated with sterile saline solution. debris was removed the proximal tibia was subsequently prepared and was made ready for the placement of the tibial component tibial component was also cemented and tamped into position the femoral component was subsequently placed and cemented in the position the patellar component was subsequently cemented in position because hemostasis once again obtained and maintained wound having been thoroughly irrigated with debridement and debridement lavage was performed as well as a medial parapatellar incision closed with #1 Vicryl in interrupted fashion subcutaneous was closed with #2 Vicryl skin was closed with skin clips. PA-C was necessary for prepping and drapping as well as wound closure of deep fascia Sub cutaneous tissue and skin and was necessary for the case. A sterile compressive dressing was placed patient was taken to recovery in stable condition of report dictated by Arron I attest to the content of the Intraoperative Record and any orders documented therein. Any exceptions are noted below. I attest to the content of the Intraoperative Record and any orders documented therein. Any exceptions are noted below.
--- NOTE | 2021-03-31 10:52 | Operative Report ---
Post Operative Report Pre & Post Diagnosis Operation Date: 03/31/21 09:30 Pre-Op Diagnosis: Osteoarthritis, Left Knee Post-Op Diagnosis: Osteoarthritis, Left Knee I identified the patient and participated in the time-out.: Yes Procedure Operation Date: 03/31/21 09:30 Actual Procedures p Left Total Knee Arthroplasty(Left) - Quinton Heller DO Surgeon Quinton Heller DO Community Support Worker Osmani BACON Estimated Blood Loss 5 Findings Consistent with Post-Op Diagnosis Specimens Bone and cartilage Description of Procedure After proper prepping and draping of the left lower extremity anterior midline incision was made over the region of the extensor extensor mechanism after meticulous hemostasis was obtained and maintained in subcutaneous tissues a medial parapatellar incision was made The patella was subluxed lateralward the medial lateral gutter were cleaned from any hypertrophic synovitis and scar tissue of the distal femoral block was placed and the distal femoral osteotomy cut was made subsequently the chamfers anterior and posterior osteotomy cuts were made utilizing the 4-in-1 block the tibia was subsequently subluxed anteriorward medial and ateral meniscal remnants were excised in their entirety remnants of the anterior and posterior cruciate ligaments were excised in their entirety excellent exposure of the proximal tibia was obtained the tibial osteotomy guide was placed on the proximal tibial osteotomy cut was made once again the knee was irrigated with copious amounts of sterile saline solution the patella was subsequently everted lateralward thickened scar tissue around the patella was removed the patella was subsequently cut utilizing a freehand technique and was drilled prepared for final preparation and placement of patella socially flexion-extension gaps were checked and the equal and symmetric trials were placed to the appropriate femoral and tibial trials with poly-spacer being placed for equal flexion and extension gaps and full range of motion including extension to 0 and flexion to 140 the trial components after having been taken to recovery range of motion was subsequently removed meticulous hemostasis was obtained and maintained subsequently a knee block injection of joint cocktail including ropivacaine 0.5% 150 mg. Bupivacaine 0.5% epinephrine 1-200,030 mL's toradol 30 mg dexamethasone 4 mg ketamine 10 mg clonidine 100 micrograms normal saline solution 30 mg was infiltrated into the soft tissues of the posterior knee medial lateral gutters and periosteal synovium special attention was paid to protect neurovascular structures at all times subsequently trial components having been removed the knee was irrigated with sterile saline solution. debris was removed the proximal tibia was subsequently prepared and was made ready for the placement of the tibial component tibial component was also cemented and tamped into position the femoral component was subsequently placed and cemented in the position the patellar component was subsequently cemented in position because hemostasis once again obtained and maintained wound having been thoroughly irrigated with debridement and debridement lavage was performed as well as a medial parapatellar incision closed with #1 Vicryl in interrupted fashion subcutaneous was closed with #2 Vicryl skin was closed with skin clips. PA-C was necessary for prepping and drapping as well as wound closure of deep fascia Sub cutaneous tissue and skin and was necessary for the case. A sterile compressive dressing was placed patient was taken to recovery in stable condition of report dictated by Arron I attest to the content of the Intraoperative Record and any orders documented therein. Any exceptions are noted below. I attest to the content of the Intraoperative Record and any orders documented therein. Any exceptions are noted below.
--- NOTE | 2021-03-31 11:48 | XRay Report ---
XR knee LT 1 or 2V routine HISTORY: 75 years-old Female Surgical Post Op left knee total joint arthroplasty COMPARISON: Left knee radiographs 05/22/2019 TECHNIQUE: 2 views of the left knee FINDINGS: Left knee total joint arthroplasty and patella resurfacing. Anterior midline skin anders are noted a long with expected postsurgical soft tissue swelling and deep tissue air with surgical drainage neal ter. No acute fracture, malalignment or unexpected opaque foreign body. IMPRESSION: Left knee total joint arthroplasty with expected postoperative changes. ACT 112: Negative or not required by law. The above report was generated using voice recognition software. It may contain grammatical, syntax o r spelling errors. Electronically signed by: James Dunn M.D. 03/31/2021 11:47 AM
[2021-03-31] MEDS ORDERED: diphenhydrAMINE Capsule 25 MG CAP PO PRN (12:31)
[2021-03-31] MEDS ORDERED: traZODone HCL 50 MG TAB PO PRN (12:31)
[2021-03-31] MEDS ORDERED: NALOXONE HCL 0.4 MG/1 ML VIAL/CARP IV PRN (12:31)
[2021-03-31] MEDS ORDERED: MAGNESIUM HYDROXIDE SUSP 30 ML UDC PO PRN (12:31)
[2021-03-31] MEDS ORDERED: bisacodyL 10 MG SUPP PR PRN (12:31)
[2021-03-31] MEDS ORDERED: LORazepam 0.5 MG TAB PO PRN (12:31)
[2021-03-31] MEDS: SODIUM CHLORIDE 0.9% 1000ML 1,000 ML IV SCH (12:54)
--- NOTE | 2021-03-31 12:57 | Anesthesiology Progress Note ---
Date of Service March 31, 2021 Anesthesia Post Procedure Vital Signs Vital Signs: Temp Pulse Pulse Pulse Resp BP BP 03/31/21 12:45 97.3 F L 67 19 101/65 03/31/21 12:15 97.5 F L 75 16 154/87 H 03/31/21 12:00 76 19 132/72 03/31/21 11:50 97.3 F L 81 15 147/78 H 03/31/21 11:40 88 19 147/73 H 03/31/21 11:30 90 22 144/73 H 03/31/21 11:22 97.2 F L 94 H 16 149/77 H 03/31/21 07:48 98.1 F 78 20 176/88 H Pulse Ox 03/31/21 12:45 100 03/31/21 12:15 98 03/31/21 12:00 97 03/31/21 11:50 95 03/31/21 11:40 94 03/31/21 11:30 99 03/31/21 11:22 97 03/31/21 07:48 95 Transfer of Care Handoff Completed per policy Notes Mental Status: alert / awake / arousable and participated in evaluation Patient Amnestic to Procedure: Yes Nausea / Vomiting: adequately controlled Pain: adequately controlled Airway Patency, RR, SpO2: stable & adequate BP & HR: stable & adequate Hydration State: stable & adequate Neuraxial Anesthesia: was administered and sensory block is resolving Anesthetic Complications: no major complications apparent and Pt Satisfied with anesthetic care
[2021-03-31] MEDS: ACETAMINOPHEN 500 MG TAB PO SCH ×2 (14:29→21:48)
[2021-03-31] MEDS: ceFAZolin 1000MG 1,000 MG/7.5 ML SYR IV SCH (18:32)
[2021-03-31] MEDS: oxyCODONE HCL IR 5 MG TAB (IMMEDIATE RELEASE) PO PRN (20:32)
[2021-03-31] MEDS: DOCUSATE SODIUM 100 MG CAP PO SCH (20:33)
[2021-03-31] MEDS: ASPIRIN 81 MG ECTAB PO SCH (20:34)
[2021-03-31] MEDS ORDERED: ATORVASTATIN 10 MG TAB PO SCH (21:00)
[2021-03-31] MEDS ORDERED: CITALOPRAM 40 MG TAB PO SCH (21:00)
[2021-03-31] MEDS ORDERED: SENNA 8.6 MG TAB PO SCH (21:00)
[2021-04-01] MEDS: ceFAZolin 1000MG 1,000 MG/7.5 ML SYR IV SCH (00:30)
[2021-04-01] MEDS: HYDROmorphone INJ 0.5 MG/0.5 ML SYR IV PRN ×2 (00:40→05:36)
[2021-04-01] MEDS: SODIUM CHLORIDE 0.9% 1000ML 1,000 ML IV SCH (01:16)
[2021-04-01] MEDS: oxyCODONE HCL IR 5 MG TAB (IMMEDIATE RELEASE) PO PRN ×3 (03:58→13:46)
[2021-04-01] MEDS: ACETAMINOPHEN 500 MG TAB PO SCH ×2 (05:35→13:45)
[2021-04-01 06:33] LABS: Hematocrit (blood only) 32.9 % (37-47); Hemoglobin 10.8 g/dL (12.0-16.0); Mean Corpuscular Hemoglobin 29.1 pg (25-34); Mean Corpuscular Hgb Conc 32.8 g/dL (32-36); Mean Corpuscular Volume 88.7 fL (80-100); Mean Platelet Volume 10.6 fL (7.4-10.4); Platelet Count 190 K/uL (130-400); RDW Coefficient of Variation 12.9 % (11.5-14.5); RDW Standard Deviation 41.8 fL (36.4-46.3); Red Blood Count 3.71 M/uL (4.2-5.4); White Blood Count 10.42 K/uL (4.8-10.8)
[2021-04-01 07:18] LABS: BUN Creatinine Ratio 19.7 (10-20); Calcium 8.9 mg/dl (8.5-10.1); Creatinine Clr Calc Pharmacy 58.8 ml/min; Est GFR (African American) 86.8 ml/min; Est GFR (Non-African American) 74.9 ml/min; Potassium 4.2 mmol/L (3.5-5.1)
--- NOTE | 2021-04-01 08:32 | Anesthesiology Progress Note ---
Date of Service April 01, 2021 Anesthesia Post Procedure Vital Signs Vital Signs: Temp Pulse Pulse Resp BP BP Pulse Ox 04/01/21 08:12 36.7 C 64 17 128/74 94 04/01/21 04:00 36.7 C 72 18 128/70 96 03/31/21 23:00 37.1 C 81 18 119/71 95 03/31/21 19:30 36.6 C 80 20 132/69 97 03/31/21 18:38 36.8 C 100 03/31/21 15:58 67 108/69 98 03/31/21 15:39 36.2 C L 60 13 90/57 L 98 03/31/21 14:26 36.3 C L 72 16 104/69 100 03/31/21 13:18 36.2 C L 63 12 108/70 99 03/31/21 12:45 36.3 C L 67 19 101/65 100 03/31/21 12:15 36.4 C L 75 16 154/87 H 98 03/31/21 12:00 76 19 132/72 97 03/31/21 11:50 36.3 C L 81 15 147/78 H 95 03/31/21 11:40 88 19 147/73 H 94 03/31/21 11:30 90 22 144/73 H 99 03/31/21 11:22 36.2 C L 94 H 16 149/77 H 97 Pain Intensity Knee: Pain Intensity: 5 Notes Mental Status: alert / awake / arousable and participated in evaluation Patient Amnestic to Procedure: Yes Nausea / Vomiting: adequately controlled Pain: adequately controlled Airway Patency, RR, SpO2: stable & adequate BP & HR: stable & adequate Hydration State: stable & adequate Neuraxial Anesthesia: was administered and sensory block resolved Anesthetic Complications: no major complications apparent
[2021-04-01] MEDS ORDERED: PANTOprazole 40 MG TAB PO SCH (09:00)
[2021-04-01] MEDS ORDERED: MULTIVITAMIN TAB PO SCH (09:00)
[2021-04-01] MEDS: ASPIRIN 81 MG ECTAB PO SCH (09:15)
[2021-04-01] MEDS: DOCUSATE SODIUM 100 MG CAP PO SCH (09:15)
--- NOTE | 2021-04-01 10:19 | Orthopedic Progress Note ---
Date of Service April 01, 2021 Assessment & Plan (1) Arthritis of knee, left: Postop day 1 status post left total knee arthroplasty. PT/OT protocols. Weightbearing as tolerated. DVT prophylaxis-aspirin p.o. twice daily, SCDs, CHRISTOPH pendleton. Pain management as written. DC planning-patient is planning for home health services upon discharge. Admission and Anticipated Discharge Date Admission Date: March 31, 2021 Subjective Postop day 1 Patient is sitting up in bed awake and alert. States she had very little sleep last night. She is having some mild pain over the anterior knee but is otherwise feeling well. No other complaints at this time. Denies shortness of breath, chest pain, lightheadedness. She is hoping to go home today. Physical Exam Physical Exam: Dressings are clean, dry, and intact. Calves are soft nontender. Neurovascular intact. Toes are mobile. She had good dorsiflexion and plantarflexion of her left foot. Hemovac drainage was 185 mL from the previous shift. Results & Data ([facility]) Vital Signs (Past 12 Hours) Vital Signs Temp Pulse Resp BP Pulse Ox 04/01/21 08:12 36.7 C 64 17 128/74 94 04/01/21 04:00 36.7 C 72 18 128/70 96 03/31/21 23:00 37.1 C 81 18 119/71 95 Laboratory Results Laboratory Results WBC 10.42 K/uL (4.8-10.8) 04/01/21 05:23 RBC 3.71 M/uL (4.2-5.4) L 04/01/21 05:23 Hgb 10.8 g/dL (12.0-16.0) L 04/01/21 05:23 Hct 32.9 % (37-47) L 04/01/21 05:23 MCV 88.7 fL (80-100) 04/01/21 05:23 MCH 29.1 pg (25-34) 04/01/21 05:23 MCHC 32.8 g/dL (32-36) 04/01/21 05:23 RDW Std Deviation 41.8 fL (36.4-46.3) 04/01/21 05:23 RDW Coeff of Airam 12.9 % (11.5-14.5) 04/01/21 05:23 Plt Count 190 K/uL (130-400) 04/01/21 05:23 MPV 10.6 fL (7.4-10.4) H 04/01/21 05:23 Immature Gran % (Auto) 0.2 % 03/09/21 14:08 Neut % (Auto) 51.7 % 03/09/21 14:08 Lymph % (Auto) 36.5 % 03/09/21 14:08 Mckenzie % (Auto) 6.5 % 03/09/21 14:08 Eos % (Auto) 4.7 % 03/09/21 14:08 Baso % (Auto) 0.4 % 03/09/21 14:08 Neut # (Auto) 2.95 K/uL (1.4-6.5) 03/09/21 14:08 Lymph # (Auto) 2.08 K/uL (1.2-3.4) 03/09/21 14:08 Mckenzie # (Auto) 0.37 K/uL (0.11-0.59) 03/09/21 14:08 Eos # (Auto) 0.27 K/uL (0-0.5) 03/09/21 14:08 Baso # (Auto) 0.02 K/uL (0-0.2) 03/09/21 14:08 Immature Gran # (Auto) 0.01 K/uL (0.00-0.02) 03/09/21 14:08 PT 10.0 Seconds (9.0-12.0) 03/09/21 14:08 INR 1.0 (0.9-1.1) 03/09/21 14:08 APTT 24.2 Seconds (21.0-31.0) 03/09/21 14:08 PTT Ratio 0.9 03/09/21 14:08 Sodium 140 mmol/L (136-145) 04/01/21 05:23 Potassium 4.2 mmol/L (3.5-5.1) 04/01/21 05:23 Chloride 111 mmol/L (98-107) H 04/01/21 05:23 Carbon Dioxide 26 mmol/L (21-32) 04/01/21 05:23 Anion Gap 3.0 (3-11) 04/01/21 05:23 BUN 15 mg/dl (7-18) 04/01/21 05:23 Creatinine 0.78 mg/dl (0.6-1.2) 04/01/21 05:23 Est Cr Clr Drug Dosing 58.8 ml/min 04/01/21 05:23 Est GFR ( Amer) 86.8 ml/min 04/01/21 05:23 Est GFR (Non-Af Amer) 74.9 ml/min 04/01/21 05:23 BUN/Creatinine Ratio 19.7 (10-20) 04/01/21 05:23 Glucose 113 mg/dl (70-99) H 04/01/21 05:23 Estimat Average Glucose 105 mg/dl 03/09/21 14:08 Hemoglobin A1c 5.3 % (4.5-5.6) 03/09/21 14:08 Calcium 8.9 mg/dl (8.5-10.1) 04/01/21 05:23 Albumin 3.4 gm/dl (3.4-5.0) 03/09/21 14:08 Urine Color Yellow 03/09/21 14:08 Urine Appearance Clear (Clear) 03/09/21 14:08 Urine pH 6.5 (4.5-7.5) 03/09/21 14:08 Ur Specific [place] 1.007 (1.000-1.030) 03/09/21 14:08 Urine Protein Negative (Negative) 03/09/21 14:08 Urine Glucose (UA) Negative (Negative) 03/09/21 14:08 Urine Ketones Negative (Negative) 03/09/21 14:08 Urine Blood Negative (Negative) 03/09/21 14:08 Urine Nitrite Negative (Negative) 03/09/21 14:08 Urine Bilirubin Negative (Negative) 03/09/21 14:08 Urine Urobilinogen Negative (Negative) 03/09/21 14:08 Ur Leukocyte Esterase Trace (Negative) H 03/09/21 14:08 Urine WBC (Auto) 5-10 /hpf (0-5) H 03/09/21 14:08 Urine RBC (Auto) 0-4 /hpf (0-4) 03/09/21 14:08 U Hyaline Cast (Auto) 1-5 /lpf (0-5) 03/09/21 14:08 U Epithel Cells (Auto) >30 /lpf (0-5) H 03/09/21 14:08 Urine Bacteria (Auto) Negative (Negative) 03/09/21 14:08 COVID-19 Eval Order Covid19 IDNow [facility] 03/31/21 07:41 SARS-CoV-2, RNA, NAAT NEGATIVE (NEGATIVE) 03/31/21 07:41 Blood Type AB Positive 03/09/21 14:08 Antibody Screen NEGATIVE 03/09/21 14:08 Knee X-Ray 03/31/21 11:26 XR knee LT 1 or 2V routine HISTORY: 75 years-old Female Surgical Post Op left knee total joint arthroplasty COMPARISON: Left knee radiographs 05/22/2019 TECHNIQUE: 2 views of the left knee FINDINGS: Left knee total joint arthroplasty and patella resurfacing. Anterior midline skin anders are noted along with expected postsurgical soft tissue swelling and deep tissue air with surgical drainage catheter. No acute fracture, malalignment or unexpected opaque foreign body. IMPRESSION: Left knee total joint arthroplasty with expected postoperative changes. ACT 112: Negative or not required by law. The above report was generated using voice recognition software. It may contain grammatical, syntax or spelling errors. Electronically signed by: James Dunn M.D. 03/31/2021 11:47 AM
--- NOTE | 2021-04-01 13:35 | Discharge Summary ---
Date of Service April 01, 2021 Admission HPI Per Admitting Provider Cristal is a 75 year old female who complains of left knee pain, presents for pre-op evaluation prior to a left total knee replacement by Dr Tong at [facility]. She has complaints of pain, decreased range of motion, instability and stiffness in her left knee. Currently the patient states that the symptoms are moderate- severe. The pain is described as aching, sharp and throbbing. The symptoms are aggravated by ascending stairs, daily activities, first steps while awake walking. Prior NSAIDs include IBU and Aleve. she has been treated with previous cortisone injections in the past without much relief. she had previous left knee scope with partial medial menisectomy and aspiration popliteal cyst by dr tong 03/2019. Admission Exam Per Admitting Provider Physical Exam: HT: 5ft 3in WT: 68.5kg Constitutional: WD/WN, vitals as above no acute distress Respiratory: normal respiratory effort, lungs clear to auscultation no respiratory distress, no labored breathing and does not use accessory muscles Cardiovascular: RRR, no murmur, no edema Gastrointestinal (Abdomen): normal bowel sounds, soft, nontender, no hepatosplenomegaly Musculoskeletal: Knee: + knee abnormal to inspection (LEFT KNEE), + effusion (+1 effusion), + surgical incision (well healed portals), + limited ROM of knee (ROM 0/3/110), + knee ROM with crepitation, + joint line tenderness (medial joint line) and + Viviane's sign positive; no deformity, no skin erythema, no ecchymosis, no valgus laxity, no varus laxity, anterior drawer test negative, Dolores's sign negative and pivot shift test negative Principal Diagnosis Left knee osteoarthritis Discharge Data Allergies Allergy/AdvReac Type Severity Reaction Status Date / Time No Known Allergies Allergy Unknown Verified 03/31/21 07:42 Procedures Performed Operation Date: 03/31/21 09:30 Actual Procedures p Left Total Knee Arthroplasty(Left) - Quinton Tong DO Ordered Studies 03/31/21 05:00 US - OR guided needle placemen Routine Hospital Course (1) Arthritis of knee, left: Addendum (Blank) Addendum April 01, 2021 11:43 Progessing well with PT. VSS,Afeb. Pain controlled. Plan for DC to home with services. Addendum Signed By:<Electronically signed by Osmani Muro PA-C>04/01/21 [id number] Cosigned By: Created: 04/01/21 Date of Service April 01, 2021 Assessment & Plan (1) Arthritis of knee, left: Postop day 1 status post left total knee arthroplasty. PT/OT protocols. Weightbearing as tolerated. DVT prophylaxis-aspirin p.o. twice daily, SCDs, CHRISTOPH pendleton. Pain management as written. DC planning-patient is planning for home health services upon discharge. Admission and Anticipated Discharge Date Admission Date: March 31, 2021 Subjective Postop day 1 Patient is sitting up in bed awake and alert. States she had very little sleep last night. She is having some mild pain over the anterior knee but is otherwise feeling well. No other complaints at this time. Denies shortness of breath, chest pain, lightheadedness. She is hoping to go home today. Physical Exam Physical Exam: Dressings are clean, dry, and intact. Calves are soft nontender. Neurovascular intact. Toes are mobile. She had good dorsiflexion and plantarflexion of her left foot. Hemovac drainage was 185 mL from the previous shift. Results & Data ([facility]) Vital Signs (Past 12 Hours) Vital Signs Temp Pulse Resp BP Pulse Ox 04/01/21 08:12 36.7 C 64 17 128/74 94 04/01/21 04:00 36.7 C 72 18 128/70 96 03/31/21 23:00 37.1 C 81 18 119/71 95 Laboratory Results Laboratory Results WBC 10.42 K/uL (4.8-10.8) 04/01/21 05:23 RBC 3.71 M/uL (4.2-5.4) L 04/01/21 05:23 Hgb 10.8 g/dL (12.0-16.0) L 04/01/21 05:23 Hct 32.9 % (37-47) L 04/01/21 05:23 MCV 88.7 fL (80-100) 04/01/21 05:23 MCH 29.1 pg (25-34) 04/01/21 05:23 MCHC 32.8 g/dL (32-36) 04/01/21 05:23 RDW Std Deviation 41.8 fL (36.4-46.3) 04/01/21 05:23 RDW Coeff of Airam 12.9 % (11.5-14.5) 04/01/21 05:23 Plt Count 190 K/uL (130-400) 04/01/21 05:23 MPV 10.6 fL (7.4-10.4) H 04/01/21 05:23 Immature Gran % (Auto) 0.2 % 03/09/21 14:08 Neut % (Auto) 51.7 % 03/09/21 14:08 Lymph % (Auto) 36.5 % 03/09/21 14:08 Clarke % (Auto) 6.5 % 03/09/21 14:08 Eos % (Auto) 4.7 % 03/09/21 14:08 Baso % (Auto) 0.4 % 03/09/21 14:08 Neut # (Auto) 2.95 K/uL (1.4-6.5) 03/09/21 14:08 Lymph # (Auto) 2.08 K/uL (1.2-3.4) 03/09/21 14:08 Clarke # (Auto) 0.37 K/uL (0.11-0.59) 03/09/21 14:08 Eos # (Auto) 0.27 K/uL (0-0.5) 03/09/21 14:08 Baso # (Auto) 0.02 K/uL (0-0.2) 03/09/21 14:08 Immature Gran # (Auto) 0.01 K/uL (0.00-0.02) 03/09/21 14:08 PT 10.0 Seconds (9.0-12.0) 03/09/21 14:08 INR 1.0 (0.9-1.1) 03/09/21 14:08 APTT 24.2 Seconds (21.0-31.0) 03/09/21 14:08 PTT Ratio 0.9 03/09/21 14:08 Sodium 140 mmol/L (136-145) 04/01/21 05:23 Potassium 4.2 mmol/L (3.5-5.1) 04/01/21 05:23 Chloride 111 mmol/L (98-107) H 04/01/21 05:23 Carbon Dioxide 26 mmol/L (21-32) 04/01/21 05:23 Anion Gap 3.0 (3-11) 04/01/21 05:23 BUN 15 mg/dl (7-18) 04/01/21 05:23 Creatinine 0.78 mg/dl (0.6-1.2) 04/01/21 05:23 Est Cr Clr Drug Dosing 58.8 ml/min 04/01/21 05:23 Est GFR ( Amer) 86.8 ml/min 04/01/21 05:23 Est GFR (Non-Af Amer) 74.9 ml/min 04/01/21 05:23 BUN/Creatinine Ratio 19.7 (10-20) 04/01/21 05:23 Glucose 113 mg/dl (70-99) H 04/01/21 05:23 Estimat Average Glucose 105 mg/dl 03/09/21 14:08 Hemoglobin A1c 5.3 % (4.5-5.6) 03/09/21 14:08 Calcium 8.9 mg/dl (8.5-10.1) 04/01/21 05:23 Albumin 3.4 gm/dl (3.4-5.0) 03/09/21 14:08 Urine Color Yellow 03/09/21 14:08 Urine Appearance Clear (Clear) 03/09/21 14:08 Urine pH 6.5 (4.5-7.5) 03/09/21 14:08 Ur Specific [place] 1.007 (1.000-1.030) 03/09/21 14:08 Urine Protein Negative (Negative) 03/09/21 14:08 Urine Glucose (UA) Negative (Negative) 03/09/21 14:08 Urine Ketones Negative (Negative) 03/09/21 14:08 Urine Blood Negative (Negative) 03/09/21 14:08 Urine Nitrite Negative (Negative) 03/09/21 14:08 Urine Bilirubin Negative (Negative) 03/09/21 14:08 Urine Urobilinogen Negative (Negative) 03/09/21 14:08 Ur Leukocyte Esterase Trace (Negative) H 03/09/21 14:08 Urine WBC (Auto) 5-10 /hpf (0-5) H 03/09/21 14:08 Urine RBC (Auto) 0-4 /hpf (0-4) 03/09/21 14:08 U Hyaline Cast (Auto) 1-5 /lpf (0-5) 03/09/21 14:08 U Epithel Cells (Auto) >30 /lpf (0-5) H 03/09/21 14:08 Urine Bacteria (Auto) Negative (Negative) 03/09/21 14:08 COVID-19 Eval Order Covid19 IDNow [facility] 03/31/21 07:41 SARS-CoV-2, RNA, NAAT NEGATIVE (NEGATIVE) 03/31/21 07:41 Blood Type AB Positive 03/09/21 14:08 Antibody Screen NEGATIVE 03/09/21 14:08 Knee X-Ray 03/31/21 11:26 XR knee LT 1 or 2V routine HISTORY: 75 years-old Female Surgical Post Op left knee total joint arthroplasty COMPARISON: Left knee radiographs 05/22/2019 TECHNIQUE: 2 views of the left knee FINDINGS: Left knee total joint arthroplasty and patella resurfacing. Anterior midline sk in anders are noted along with expected postsurgical soft tissue swelling and deep tissue air with surgical drainage catheter. No acute fracture, malalignment or unexpected opaque foreign body. IMPRESSION: Left knee total joint arthroplasty with expected postoperative changes. Total Time Total Time Spent Total Time Spent (In Minutes): 5 Discharge Plan Discharge Items Patient Disposition: Home - Home Health Services Reason For Visit: Osteoarthritis, Left Knee Discharge Diagnosis: Osteoarthritis left knee Activity: Per Instructions section Weightbearing: Left weightbearing Weightbearing Comment: As tolerated with walker. Non-emergency contact: Surgeon Call non-emergency contact if: you have any medication questions, your temperature is above 101.5, your wound has increased redness and your wound has increased drainage Follow-up/Referrals: Amarjit Mendez MD [Primary Care Provider] - Diet: Regular Addtl Attending Provider Instructions: ACTIVITY RECOMMENDATIONS: SELF CARE INSTRUCTIONS AFTER TOTAL KNEE REPLACEMENT A. You may need to continue a physical therapy program after discharge from the hospital. There are several options available to you. Your doctor will assist you in selecting the best one for you. 1. An out-patient facility 2 to 3 times a week for therapy or home therapy. 2. Continue working on all exercises taught to you in the hospital. Your goals should be to increase bending of your knee to 90 degrees and beyond and to fully straighten your knee. B. You may progress at your own pace from walking with a walker or crutches to a cane; then to no assistive devices. C. Make walking a part of your daily routine. Be up as much as comfortable with rest periods throughout the day. Rest with leg elevation is very important. Use the ice wrap frequently for the first 3-4 weeks. D. There are no restrictions on activities. You may ride in a car, shop, participate in electronic warfare specialist and all social activities. E. Wear the long elastic stockings (CHRISTOPH hose) 20 hours a day for 2 weeks after surgery. They can be removed several times a day for laundering and for a bath. F. You may shower, no tub baths until cleared by your doctor. SPECIAL CARE INSTRUCTIONS: VERY IMPORTANT TO READ AND REVIEW A. There are a few signs you need to watch for after you are home. Call [facility] if you notice any of the followin. Increased severe knee pain. Some pain is expected especially when you exercise. 2. Increased swelling in your leg or knee; pain or swelling of the calf muscle in either lower leg. 3. Any fluid drainage from the incision. 4. Shortness of breath or chest pain. B. Please call [facility] at if you have any concerns or questions about your operation or recovery. The doctor or his nurse will return your call promptly. C. You must take antibiotics before dental work, bladder, bowel or other surgery. Your doctor will provide you with a permanent care to carry describing this precaution. IMPORTANT: * REMEMBER TO TAKE ASPIRIN, 81 MG, TWICE DAILY FOR 4 WEEKS UNLESS OTHERWISE DIRECTED. THIS IS YOUR BLOOD THINNER. * HIGH RISK PATIENTS MAY BE PRESCRIBED A STRONGER BLOOD THINNER. THIS WILL BE PROVIDED AT DISCHARGE. * CALL IF INCREASED PAIN, REDNESS, DRAINAGE OR FEVER GREATER THAT 101. * WEAR CHRISTOPH HOSE 20 HOURS PER DAY FOR 2 WEEKS. * ANGEL Dressing - This is a large suction dressing covering your incision. This will help pull any excess drainage from the wound and allow your incision to heal properly. You may shower with this if you can keep the unit outside of the shower. If any bleeding or leakage is noted please call your doctor's office. This will remain on your incision for 7 days and then should be removed. This can be done yourself or by the home nursing staff if applicable. The entire unit is disposable once removed. Once removed, keep incision clean and dry. If redness or drainage is noted, please call your surgeon. . FOLLOW UP VISIT: If appointment is not already scheduled: Please call [facility] to make a follow-up appointment for 2 weeks after your surgery at . Stand-Alone Forms: My [facility] [employer], Smoking Cessation Medications and DC Order Prescriptions: New acetaminophen 500 mg Tablet 1,000 mg PO Q8 14 Days Qty: 84 RF: 0 aspirin 81 mg Tablet,Delayed Release (Dr/Ec) 81 mg PO BID 30 Days Qty: 60 RF: 0 cefadroxil 500 mg capsule 500 mg PO BID Qty: 28 RF: 1 polyethylene glycol 3350 [Miralax] 17 gram powder in packet 17 g PO DAILY PRN (Reason: constipation) Qty: 5 RF: 0 oxycodone 5 mg Tablet 5 mg PO Q4H MDD 6 PRN (Reason: pain) Qty: 30 RF: 0 Continued pantoprazole 40 mg Tablet,Delayed Release (Dr/Ec) 40 mg PO QAM RF: 0 diphenhydramine HCl [Benadryl] 25 mg Capsule 25 mg PO Q4H PRN (Reason: ALLERGIES) RF: 0 citalopram 40 mg Tablet 40 mg PO HS RF: 0 trazodone 50 mg Tablet 50 mg PO HS PRN (Reason: Sleep) RF: 0 lorazepam 0.5 mg Tablet 0.5 mg PO BID PRN (Reason: Anxiety) RF: 0 atorvastatin 10 mg Tablet 10 mg PO HS RF: 0 Discharge Orders: Discharge Order (Routine); Ordered 04/01/21 Ordered By: Osmani Santillan/Other Patient Handouts: Total Knee Replacement, Understanding Knee Replacement, After Knee Replacement: Back at Home, Knee Replace First Month, Knee Replace After Hospital, Knee Replace After Surgery, Arthroscopy Knee Dc Admission Data Admit Date/Time: 03/31/21 11:26 Attending Provider: Quinton Tong Admit Provider: Quinton Tong Primary Care Provider: Amarjit Mendez Other Providers: [facility],Home Healthcare Other Interventions: Discharge Summary Assessment (RN) Last Done: 04/01/21 11:57
== END 2021-04-01 14:40 | disposition home health service (06) ==
LOC: 3E 07:10 → ASU 07:10

== ENCOUNTER 2024-08-23 06:15 | Inpatient (IN) ==
--- NOTE | 2024-07-31 10:43 | PAT Medication Instructions ---
Medication Instructions Date of Service July 31, 2024 Home Medications diphenhydramine HCl 25 mg capsule (Benadryl) 25 mg PO UD PRN ALLERGIES pantoprazole 40 mg tablet,delayed release 40 mg PO QAM citalopram 40 mg tablet 40 mg PO HS lorazepam 0.5 mg tablet 0.5 mg PO BID PRN Anxiety atorvastatin 10 mg tablet 10 mg PO HS trazodone 100 mg tablet 100 mg PO HS PRN Sleep cyanocobalamin (vitamin B-12) 25 mcg tablet 0 mcg PO DAILY DO NOT take the morning of surgery diphenhydramine HCl 25 mg capsule (Benadryl) 25 mg PO UD PRN ALLERGIES cyanocobalamin (vitamin B-12) 25 mcg tablet 0 mcg PO DAILY Take morning of surgery With a small sip of water, OTHERWISE NOTHING TO EAT OR DRINK AFTER MIDNIGHT: pantoprazole 40 mg tablet,delayed release 40 mg PO QAM lorazepam 0.5 mg tablet 0.5 mg PO BID PRN Anxiety (if needed) Take evening before surgery diphenhydramine HCl 25 mg capsule (Benadryl) 25 mg PO UD PRN ALLERGIES (if needed) citalopram 40 mg tablet 40 mg PO HS lorazepam 0.5 mg tablet 0.5 mg PO BID PRN Anxiety (if needed) atorvastatin 10 mg tablet 10 mg PO HS trazodone 100 mg tablet 100 mg PO HS PRN Sleep (if needed) Other Notes If you have any questions please call us at [phone] or [phone] or [phone] or [phone]
--- NOTE | 2024-08-09 13:05 | Anesthesiology Consultation ---
Date of Service August 09, 2024 Assessment & Plan (1) Encounter for pre-operative examination: - Infectious disease screening: Per assessment on 08/09/24: No known recent infectious disease contacts or current infectious disease symptoms. Chronic, dry cough (s/p unremarkable 09/2023 CXR) at baseline. - PCP visit (08/07/24): "Lumbar spinal stenosis-the patient plans to proceed with the L4-L5 lumbar fusion and attention directed at the cyst that was noted on MRI. Pending results of her pre anesthesia evaluation with blood work EKG and chest x-ray assuming that those are unremarkable, I do not feel then that any further testing to be necessary prior to surgery. As long as that pre anesthesia evaluation is unremarkable I think the patient could proceed with surgery.. Recent episode of transient urticaria-possibly due to oxycodone. I would recommend she avoid specifically using oxycodone postoperatively. Um I will pass on this information to Dr. Evans's team.. Persistent neuropathy symptoms left foot. Unclear if any of her pain will improve with surgery. If she has no improvement, she will follow-up with pain management and we should consider also getting a Neurology referral." Preop testing faxed to PCP for continuity of care- done 08/09/24 and unremarkable. Chart Review Chart Review: Acceptable Risk for Surgery and Patient seen in Pre Admission Testing History Surgery Operation Date: 08/23/24 09:10 Proposed Procedures p L4-S1 Decompression and Fusion - Arturo Evans, Height/Weight Height: 5 ft 3 in Weight: 65.8 kg Allergies Allergy/AdvReac Type Severity Reaction Status Date / Time oxycodone Allergy Urticaria Verified 08/09/24 13:17 Medications Home Medications Medication Instructions Recorded Confirmed Last Taken diphenhydramine HCl 25 mg capsule 25 mg PO UD PRN ALLERGIES 05/22/19 07/30/24 10/12/19 (Benadryl) pantoprazole 40 mg tablet,delayed 40 mg PO QAM 05/22/19 07/30/24 03/31/21 06:00 release citalopram 40 mg tablet 40 mg PO HS 09/17/19 07/30/24 03/30/21 22:00 lorazepam 0.5 mg tablet 0.5 mg PO BID PRN Anxiety 09/17/19 07/30/24 03/30/21 22:00 atorvastatin 10 mg tablet 10 mg PO HS 03/08/21 07/30/24 03/30/21 22:00 trazodone 100 mg tablet 100 mg PO HS PRN Sleep 07/01/21 07/30/24 Unknown cyanocobalamin (vitamin B-12) 25 0 mcg PO DAILY 07/30/24 07/30/24 Unknown mcg tablet Past Medical History Medical History Anxiety Barretts esophagus Fibromyalgia GERD (gastroesophageal reflux disease) History of migraine headaches Hyperlipidemia Lactose intolerance Neuropathy left foot Occasional cough Chronic, dry- at baseline, s/p multiple unremarkable CXRs Osteoarthritis Spinal stenosis Temporomandibular joint disorder Hx clicking, no locking Trouble getting to sleep Umbilical hernia Present Exercise / Class Metabolic Activity II 4-5 Yardwork/Stairs/Walk up hill Past Family History Family History Other No significant family history Past Surgical History Surgical History H/O bilateral breast reduction surgery History of back surgery (2022) [facility] History of breast biopsy "Negative" History of cataract surgery R/L History of colonoscopy History of esophagogastroduodenoscopy (EGD) History of laminectomy Lumbar History of nasal septoplasty History of total left knee replacement (TKR) Left TKA (03/31/21): SAB at L3-4 + regional at [facility] Hx of fusion of cervical spine C4-6 S/P arthroscopic partial lateral meniscectomy Left S/P trigger finger release B/L hands [place] teeth removed Past Anesthesia History No Hx of Anesthesia Complications and No Family Hx of Anesthesia Complications History of PONV No Hx of PONV and No Hx of Motion Sickness Social History Smoking Status: Never smoker Do You Dip or Chew Tobacco: No Hx Alcohol Use: No Hx Substance Use: No substance use type: does not use Review of Systems Patient denies chest pain, shortness of breath, dyspnea on exertion, fever, chills, cough, wheezing, palpitations. Physical Exam Vital Signs BP 163/86 P 85 TEMP 98.6 SP02 96%RA RESP 16 Physical Full cervical extension range of motion. Full TMJ range of motion. TMD 3 finger breaths Mallampati Score II Dentition: missing side, crowns Lungs: clear throughout to auscultation Cardiac: regular rate and rhythm, no murmurs noted Spine: normal Carotid arteries: negative bruit Extremities: no LE edema Lab Results Anesthesia Preop Results Results Anesthesia Widget: WBC 5.00 K/ul (4.8-10.8) 08/09/24 Hgb 13.3 g/dl (12.0-16.0) 08/09/24 Hct 40.6 % (37.0-47.0) 08/09/24 Plt 221 K/uL (130-400) 08/09/24 Na 141 mmol/L (136-145) 08/09/24 K 3.6 mmol/L (3.5-5.1) 08/09/24 Cl 108 mmol/L (98-107) H 08/09/24 CO2 27 mmol/L (21-32) 08/09/24 BUN 8 mg/dl (6-23) 08/09/24 Creat 0.90 mg/dl (0.6-1.2) 08/09/24 Glucose Level 79 mg/dl (70-99(Fasting)) 08/09/24 PT 10.9 Seconds (9.0-12.0) 08/09/24 PTT 25 Seconds (21-31) 08/09/24 INR 1.0 (0.9-1.1) 08/09/24 Urine Color Yellow 08/09/24 Urine Appearance Cloudy (Clear) A 08/09/24 Urine pH 5.5 (4.5-7.5) 08/09/24 Urine Specific [place] 1.021 (1.000-1.030) 08/09/24 Urine Protein Negative (Negative) 08/09/24 Urine Glucose (UA) Negative (Negative) 08/09/24 Urine Ketones Negative (Negative) 08/09/24 Urine Blood Negative (Negative) 08/09/24 Urine Nitrite Negative (Negative) 08/09/24 Urine Bilirubin Negative (Negative) 08/09/24 Urine Urobilinogen Negative (Negative) 08/09/24 Urine Leukocyte Esterase Trace (Negative) H 08/09/24 Urine WBC (Auto) 11-20 /hpf (0-5) H 08/09/24 Urine RBC (Auto) 3-5 /hpf (0-2) H 08/09/24 Urine Hyaline Casts (Auto) 3-5 /lpf (0-2) H 08/09/24 Urine Epithelial Cells (Auto) >20 /hpf (0-2) H 08/09/24 Urine Bacteria (Auto) 3+ (None Seen) H 08/09/24 Blood Type AB Positive 08/09/24 Antibody Screen NEGATIVE 08/09/24 Testing Laboratory Results Surgeon's office made aware of abnormal UA* Urine culture (08/09/24): Probable skin dean Electrocardiogram Date: 08/09/24 NSR at 66bpm. "Normal ECG" Chest X-Ray Date: 08/09/24 FINDINGS: Lung volumes are normal. Lungs are clear. There is no pneumothorax or pleural effusion. Cardiac size is normal. Mediastinal contours are normal. There is no evidence for pulmonary edema. Postoperative findings within the cervical spine are incidentally noted. IMPRESSION: No acute cardiopulmonary findings.
[2024-08-23] MEDS: ACETAMINOPHEN 500 MG TAB PO SCH (06:57)
[2024-08-23] MEDS: GABAPENTIN 300 MG CAP PO SCH (06:58)
[2024-08-23] MEDS: LR 60ML/HR IV SCH (06:58)
[2024-08-23] MEDS: LR 15ML/HR IV SCH (06:58)
[2024-08-23] MEDS: CeleBREX 200 MG CAP PO SCH (06:58)
[2024-08-23] MEDS ORDERED: ATROPINE SULFATE 0.1 MG/ML 10ML SYR IV PRN (07:02)
[2024-08-23] MEDS ORDERED: ePHEDrine sulfate 50 MG/ML AMP IV PRN (07:02)
[2024-08-23] MEDS ORDERED: HYDROmorphone INJ 1 MG/ML SYRINGE IV PRN (07:02)
[2024-08-23] MEDS ORDERED: ONDANSETRON INJ 2 MG/ML 2 ML VIAL IV PRN ×2 (07:02→12:05)
[2024-08-23] MEDS ORDERED: ONDANSETRON INJ 2 MG/ML 2 ML VIAL ONE (07:08)
[2024-08-23] MEDS ORDERED: PROPOFOL IV EMULSION 10 MG/ML 20 ML VIAL IV ONE ×3 (07:08→09:50)
[2024-08-23] MEDS ORDERED: fentaNYL citrate PF 100 MCG/2 ML VIAL ONE (07:08)
[2024-08-23] MEDS ORDERED: ROCURONIUM BROMIDE 10 MG/ML 5 ML VIAL IV ONE (07:08)
[2024-08-23] MEDS ORDERED: DEXAMETHASONE SOD INJ 4 MG/ML VIAL ONE (07:08)
[2024-08-23] MEDS ORDERED: MIDAZOLAM HCL 1 MG/ML 2ML VIAL ONE (07:08)
[2024-08-23] MEDS ORDERED: LIDOCAINE 2% 2 ML VIAL/AMP(20MG/ML) INFIL ONE (07:08)
--- NOTE | 2024-08-23 07:45 | History & Physical Bridge Note ---
Date of Service August 23, 2024 History & Physical Bridge Note I have examined the patient, reviewed the History & Physical and in the interval since the performance of the History & Physical I have noted the following changes of clinical significance: no changes noted
--- NOTE | 2024-08-23 07:46 | History & Physical Report ---
Date of Service August 23, 2024 Assessment & Plan (1) Neurogenic claudication due to lumbar spinal stenosis: Plan: L4-L5 decompression and fusion History of Present Illness Chief Complaint: Back and leg pain Primary Care Provider: Amarjit Mendez MD This is a 78-year-old female presents chronic persistent back and leg pain after failing course of nonoperative care is here for surgical invention. Allergies Allergy/AdvReac Type Severity Reaction Status Date / Time oxycodone Allergy Urticaria Verified 08/23/24 06:38 Home Medications Medication Instructions Recorded Confirmed Type diphenhydramine HCl 25 mg capsule 25 mg PO UD PRN ALLERGIES 05/22/19 08/23/24 History (Benadryl) pantoprazole 40 mg tablet,delayed 40 mg PO QAM 05/22/19 08/23/24 History release citalopram 40 mg tablet 40 mg PO HS 09/17/19 08/23/24 History lorazepam 0.5 mg tablet 0.5 mg PO BID PRN Anxiety 09/17/19 08/23/24 History atorvastatin 10 mg tablet 10 mg PO HS 03/08/21 08/23/24 History trazodone 100 mg tablet 100 mg PO HS PRN Sleep 07/01/21 08/23/24 History cyanocobalamin (vitamin B-12) 25 0 mcg PO DAILY 07/30/24 08/23/24 History mcg tablet Past Med/Surg History Problem List (Updated 08/23/24 @ 07:46 by Arturo Evans DO) Neurogenic claudication due to lumbar spinal stenosis Arthritis of knee, left Myelopathy concurrent with and due to spinal stenosis of cervical region Encounter for pre-operative examination Environmental allergies Pollen Medical History Anxiety Barretts esophagus Fibromyalgia GERD (gastroesophageal reflux disease) History of migraine headaches Hyperlipidemia Lactose intolerance Neuropathy left foot Occasional cough Chronic, dry- at baseline, s/p multiple unremarkable CXRs Osteoarthritis Spinal stenosis Temporomandibular joint disorder Hx clicking, no locking Trouble getting to sleep Umbilical hernia Present Surgical History H/O bilateral breast reduction surgery History of back surgery (2022) [facility] History of breast biopsy "Negative" History of cataract surgery R/L History of colonoscopy History of esophagogastroduodenoscopy (EGD) History of laminectomy Lumbar History of nasal septoplasty History of total left knee replacement (TKR) Left TKA (03/31/21): SAB at L3-4 + regional at [facility] Hx of fusion of cervical spine C4-6 S/P arthroscopic partial lateral meniscectomy Left S/P trigger finger release B/L hands [place] teeth removed Family History Other No significant family history Social History Smoking Status: Never smoker Second Hand Exposure: No; Do You Dip or Chew Tobacco: No; Hx Alcohol Use: No Hx Substance Use: No Preferred Language: Chinese Communication Ability: Effective Quality Improvement Engineer Required: No Beliefs That Will Affect Care: None marital status: Current Living Situation: Spouse Feels Safe at Home: Yes Assistive Devices: Cane, Hearing Aid - Bilateral, Walker and Other Assistive Devices Comment: cane or walker prn. reading glasses. Physical Exam Physical Exam: Patient is alert and oriented heart regular rhythm Lungs clear Results & Data Results & Data Vital Signs (Past 12 Hours) Vital Signs Temp Pulse Resp BP Pulse Ox O2 Del Method 08/23/24 06:40 36.5 C 67 18 197/97 H 95 Room Air
[2024-08-23] MEDS: ceFAZolin 2000MG 2,000 MG/15 ML SYR IV SCH (08:11)
[2024-08-23] MEDS ORDERED: KETAMINE HCL 10MG/ML SYR ONE (08:15)
[2024-08-23] MEDS: BUPIVACAINE/EPINEPHRINE 0.25% 1:200,000 30 ML VIAL ONE (08:26)
[2024-08-23] MEDS: ceFAZolin 330 MG/ML 1 GM VIAL ONE (08:26)
[2024-08-23] MEDS ORDERED: PHENYLEPHRINE HCL 10 MG/ML VIAL ONE (09:27)
[2024-08-23] MEDS ORDERED: PHENYLEPHRINE 100MCG/ML 10ML SYR IV ONE (09:27)
[2024-08-23] MEDS ORDERED: GLYCOPYRROLATE 0.2 MG/ML VIAL ONE (09:30)
[2024-08-23] MEDS ORDERED: NEOSTIGMINE METHYLSULFATE 1 MG/ML 10ML VIAL ONE (09:30)
[2024-08-23] MEDS: FLOSEAL HEMOSTATIC MATRIX 10ML TOP ONE (09:46)
--- NOTE | 2024-08-23 09:49 | Operative Report ---
Post Operative Report Pre & Post Diagnosis Operation Date: 08/23/24 07:45 Pre-Op Diagnosis: #1 lumbar spinal stenosis with neurogenic claudication #2 facet cyst L4-5. #3 spondylolisthesis L4-5. Post-Op Diagnosis: Same I identified the patient and participated in the time-out.: Yes Procedure Operation Date: 08/23/24 07:45 Actual Procedures #1 revision lumbar decompression with bilateral medial facetectomies and foraminotomies L4-5. #2 excision of epidural mass. #3 posterior spinal fusion L4-5. #4 posterior to instrumentation L4-5 #5 interbody fusion L4-5 and #6 placement of Spira 12 x 26 mm x 2 at L4-5. #7 placement locally harvested morselized autograft and posterior gutters. #8 please infuse collagen sponge, with Koros in the posterior lateral gutters and os design bone graft interbody space. #9 placement of versa wrap over the exposed dura. Surgeon Arturo Evans, Septic Tank Servicer Nick Silveira Estimated Blood Loss 100 Findings Consistent with Post-Op Diagnosis Specimens None Indications This is a 78-year-old female known to me the presents publish diagnosis of failed course of nonoperative care is here for surgical invention. Description of Procedure Patient was met with identified informed consent obtained. Patient was then taken to the operative suite underwent intubation placed in a prone position on the Sohail table onto a Marques frame. All bony promises well-padded eyes inspected to ensure no external pressure placed upon them. This point the lumbar spine was prepped and draped in a sterile fashion. Sharp dissection with the assistance of the Bovie cautery was formed down to and exposing the remaining lamina and transverse processes of L4-L5. For caudal and cephalad fashion revision complete laminectomy of L4 was performed including bilateral medial facetectomies and foraminotomies addressing severe spinal stenosis. This included removal of adhered facet cyst to the dura on the left. Pedicle screws were then placed in L4-L5 bilaterally with assistance of fluoroscopy and appropriate size winnie placed. By way of transforaminal approach and right a discectomy of L4-L5 was performed endplates guided to subcortical bleeding bone and a 12 x 26 mm spiral cage filled with os design tapped in position. Then proceeded to the left transforaminal region at L4-5. Discectomy performed endplates guided to subcortical bleeding bone and a second 12 x 26 mm spiral cage with os design tapped in position. The rods were then compressed locked in final position bilaterally. The transverse processes of L4-5 burred to subcortical bleeding bone. Infuse collagen sponge combined with Koros and local autograft placed in a posterior gutters. Versa wrap placed over the exposed dura. 15 round ARVIND drain inserted. The incision was then closed with 1 Vicryl the fascia 2-0 Vicryl subcutaneously and 4 Monocryl for final skin closure. S andrew-Strips sterile dressing placed. Patient waken taken PACU stable condition. Please note spinal cord monitoring visualized at the procedure no changes noted. Nick Silveira was present at the entire surgery while the patient positioning complex portions of the surgery and fashion closure. Im ordering 20 grams of Triple [place] Collagen Powder ([id number] [id number]) to treat an incision wound that was caused by a spine procedure. The incision is approximately 2 cm(W) x 4 cm(L) into the joint (D) in size and is a full thickness wound. Triple [place] collagen comes in 1 gram packets so 20 packets were ordered. Given the size of the wound, with light to moderate exudate I chose to order a 20 day supply. The patient will be provided instructions for proper application of the collagen wound kit. The patient will be asked to apply the collagen powder daily and then cover it with sterile dressings dispensed. Collagen was selected as I expect the collagen to attract monocytes and fibroblasts, act as a sacrificial substrate for MMPs, and ultimately proved a matrix for tissue and vessel growth. The collagen will act as a primary dressing in this scenario. It is medically necessary for proper healing of these wounds to improve bioavailability and contact with each wound surface, this is also to help prevent infection of wounds and promote healing ultimately leading to a better healing outcome and limit the risk of infection. I attest to the content of the Intraoperative Record and any orders documented therein. Any exceptions are noted below.
--- NOTE | 2024-08-23 10:08 | Fluoroscopy Report ---
FL lumbar spine 2-3V CLINICAL HISTORY: L4-L5 DECOMPRESSION AND FUSION COMPARISON STUDY: CT 04/06/2021 FLUOROSCOPY TIME: 15.1 seconds FLUOROSCOPY IMAGES: 2 EXPOSURE DOSE: 10.25 mGy FINDINGS: Posterior interbody winnie and screw fusion with discectomy at L4-L5. Moderate to severe L5-S1 intervertebral disc space narrowing. Hardware appears intact. There are no unexpected opaque foreign bodies. IMPRESSION: Fluoroscopic assistance as above. ACT 112: Negative or not required by law. Electronically signed by: James Dunn M.D. 08/23/2024 10:07 AM
[2024-08-23] MEDS: fentaNYL citrate PF 100 MCG/2 ML VIAL IV PRN (11:00)
[2024-08-23] MEDS ORDERED: hydrALAZINE HCL 20 MG/ML VIAL ONE (11:11)
--- NOTE | 2024-08-23 11:15 | Anesthesiology Progress Note ---
Date of Service August 23, 2024 Anesthesia Post Procedure Vital Signs Vital Signs: Temp Pulse Resp BP Pulse Ox O2 Del Method O2 Flow Rate 08/23/24 11:10 36.3 C L 70 9 L 125/62 100 Oxymask 3 08/23/24 11:00 82 12 149/66 H 100 Oxymask 5 08/23/24 10:50 70 16 137/70 100 Oxymask 8 08/23/24 10:40 74 12 136/68 100 Oxymask 8 08/23/24 10:30 86 13 143/75 H 100 Oxymask 8 08/23/24 10:21 36.3 C L 96 H 19 173/99 H 99 Oxymask 8 08/23/24 06:40 36.5 C 67 18 197/97 H 95 Room Air Pain Intensity Back: Pain Intensity: 3 Transfer of Care Handoff Completed per policy Notes Mental Status: alert / awake / arousable and participated in evaluation Patient Amnestic to Procedure: Yes Nausea / Vomiting: adequately controlled Pain: adequately controlled Airway Patency, RR, SpO2: stable & adequate BP & HR: stable & adequate Hydration State: stable & adequate Anesthetic Complications: no major complications apparent and Pt Satisfied with anesthetic care
[2024-08-23] MEDS ORDERED: LORazepam 0.5 MG TAB PO PRN (12:05)
[2024-08-23] MEDS ORDERED: ALUMINUM/MAGNESIUM SUSP 30 ML UDC PO PRN (12:05)
[2024-08-23] MEDS ORDERED: PROMETHAZINE 12.5 MG/50.5 ML BAG IV PRN (12:05)
[2024-08-23] MEDS ORDERED: diphenhydrAMINE Capsule 25 MG CAP PO PRN ×2 (12:05)
[2024-08-23] MEDS ORDERED: HYDROmorphone INJ 0.5 MG/0.5 ML SYR IV PRN (12:05)
[2024-08-23] MEDS ORDERED: METOCLOPRAMIDE HCL INJ 5 MG/ML 2 ML VIAL IV PRN (12:05)
[2024-08-23] MEDS ORDERED: ACETAMINOPHEN 1,000 MG/100 ML VIAL IV PRN (12:05)
[2024-08-23] MEDS ORDERED: DO NOT ADMINISTER PNEUMOCOCCAL VACCINE PRN (12:05)
[2024-08-23] MEDS ORDERED: SOD PHOSPHATE/SOD BIPHOSPHATE ENEMA 132 ML BTL PR PRN (12:05)
[2024-08-23] MEDS ORDERED: LORazepam 2 MG/1 ML VIAL IV PRN (12:05)
[2024-08-23] MEDS ORDERED: ONDANSETRON 4 MG OD TAB PO PRN (12:05)
[2024-08-23] MEDS ORDERED: bisacodyL 10 MG SUPP PR PRN (12:05)
[2024-08-23] MEDS ORDERED: FAMOTIDINE 20 MG TAB PO PRN (12:05)
[2024-08-23] MEDS ORDERED: MAGNESIUM HYDROXIDE SUSP 30 ML UDC PO PRN (12:05)
[2024-08-23] MEDS ORDERED: NALOXONE HCL 0.4 MG/1 ML VIAL/CARP IV PRN (12:05)
[2024-08-23] MEDS ORDERED: DO NOT ADMINISTER FLU VACCINE PRN (12:05)
[2024-08-23] MEDS ORDERED: hydrOXYzine HCl 25 MG TAB PO PRN (12:05)
--- NOTE | 2024-08-23 12:31 | Consultation ---
Date of Consultation August 23, 2024 Assessment & Plan (1) S/P spinal surgery: (2) Neurogenic claudication due to lumbar spinal stenosis: Post op day# 0 S/P revision decompression, excision of epidural mass, fusion L4- L5 by Dr Cristina PAGE#100ml Pain management per ortho Wound management per ortho PT/OT as appropriate DVT prophylaxis per ortho Incentive spirometry Monitor H&H for acute blood loss anemia, pre-op Hgb: 13 per chart review (3) Hyperlipidemia: Continue atorvastatin (4) GERD (gastroesophageal reflux disease): Continue PPI (5) Anxiety and depression: Continue citalopram DVT Prophylaxis SCDs per ortho Disposition per primary service Follows with Dr Mendez for routine care Pt was seen and care coordinated with Dr Holt. See addendum Supervising Physician Co-Signing Physician Notes 78 yo F seen at bedside as a consult for medical management. she is s/p revision decompression, excision of epidural mass, fusion L4-L5. Pt is drowsy from anesthesia, vitals are wnl, pt is oriented, reports no pain at the moment. Pt denies recent fever or flu like illness. Labs in AM, c/w pain Mx, SCDs for DVT Px. Watch out for acute blood loss anemia. c/w home meds as able. On exam: GENERAL: drowsy and oriented x3. NAD, on RA. HEENT: No pallor, no icterus. Pupils equal, round and reactive to light. dry mucosa moist. NECK: No JVD, no neck masses. HEART: S1 and S2 heard. Regular rate and rhythm. No murmur, no gallop. RESPIRATORY SYSTEM: Normal AP diameter. No accessory muscle use. No wheezing, no crackles. ABDOMEN: Soft, bowel sounds present, nontender, no distention. CENTRAL NERVOUS SYSTEM: No facial droop. Speech is clear. Obeys simple commands. Moves extremities. EXTREMITIES: No edema, no erythema seen. Lower back dressing c/d/i. ARVIND drain minimal serosanguineous collection noted. I have seen and examined the patient and have discussed the case with the provider above. I agree with the assessment and plan as stated. Time spent: 15 min. History of Present Illness Requesting Physician: Dr Evans Reason for Consultation: post medical management Attending Physician: Arturo Evans DO History of Present Illness Patient is 78-year-old female with PMH HLD, GERD, depression, OA, spinal stenosis seen in medical consultation S/P revision decompression, excision of epidural mass, fusion L4-L5 by Dr Evans today. Post op patient reports feeling sleepy. States only having pain with attempted movement. Reports last BM this morning. Denies fever/chills, diaphoresis, N/V/D/C, LAN, dizziness, neck pain, CP, SOB, cough, sore throat, rhinorrhea, abdominal pain, weakness, extremity edema, rashes, urinary symptoms. Allergies Allergy/AdvReac Type Severity Reaction Status Date / Time oxycodone Allergy Urticaria Verified 08/23/24 06:38 Home Medications Medication Instructions Recorded Confirmed Type diphenhydramine HCl 25 mg capsule 25 mg PO UD PRN ALLERGIES 05/22/19 08/23/24 History (Benadryl) pantoprazole 40 mg tablet,delayed 40 mg PO QAM 05/22/19 08/23/24 History release citalopram 40 mg tablet 40 mg PO HS 09/17/19 08/23/24 History atorvastatin 10 mg tablet 10 mg PO HS 03/08/21 08/23/24 History trazodone 100 mg tablet 100 mg PO HS PRN Sleep 07/01/21 08/23/24 History hydrocodone 5 mg-acetaminophen 325 1 tab PO Q6H PRN pain #30 tabs 08/23/24 Rx mg tablet lorazepam 1 mg tablet 1 mg PO BID PRN Anxiety 08/23/24 08/23/24 History tramadol 50 mg tablet 50 mg PO Q6H PRN pain, moderate 08/23/24 Rx #30 tabs Patient History Medical History Lactose intolerance Occasional cough Chronic, dry- at baseline, s/p multiple unremarkable CXRs Trouble getting to sleep Barretts esophagus History of migraine headaches Neuropathy left foot Anxiety Umbilical hernia Present Spinal stenosis Fibromyalgia Osteoarthritis Temporomandibular joint disorder Hx clicking, no locking Surgical History History of total left knee replacement (TKR) Left TKA (03/31/21): SAB at L3-4 + regional at [facility] History of back surgery (2022) [facility] History of breast biopsy "Negative" H/O bilateral breast reduction surgery S/P trigger finger release B/L hands History of cataract surgery R/L Hx of fusion of cervical spine C4-6 History of laminectomy Lumbar History of esophagogastroduodenoscopy (EGD) History of colonoscopy [place] teeth removed History of nasal septoplasty S/P arthroscopic partial lateral meniscectomy Left Family History Other No significant family history Social History Smoking Status: Never smoker Second Hand Exposure: No; Do You Dip or Chew Tobacco: No; Hx Alcohol Use: No Hx Substance Use: No Preferred Language: Danish Communication Ability: Effective Retail Wireless 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 reading glasses. Review of Systems Review of Systems: All systems reviewed & are unremarkable except as noted in HPI & below Physical Exam Physical Exam: General: no distress, WDWN Head: normocephalic, atraumatic Eyes: conjunctiva non-injected, anicteric ENT: normal inspection external ears, nose, mucous membranes moist Neck: supple, trachea midline Lungs: clear, no respiratory distress, no wheezing/rhonchi/rales CV: RRR, pulse 94, no pretibial edema Abd: normal BS, soft, non-tender Back: +ARVIND drain with serosanguineous drainage; bilateral pedal pushes intact, sensation to light touch of feet intact bilaterally Ext: no cyanosis, no calf tenderness Neuro: +drowsy, awakens with voice and oriented x 3, no focal deficits noted, normal affect Skin: warm, dry Results & Data Vital Signs (Past 12 Hours) Vital Signs Temp Pulse Pulse Resp BP Pulse Ox O2 Del Method 08/23/24 12:28 36.2 C L 89 14 126/71 92 Room Air 08/23/24 11:50 97 H 16 152/78 H 91 Room Air 08/23/24 11:20 36.3 C L 93 H 15 143/69 H 94 Room Air 08/23/24 11:10 36.3 C L 70 9 L 125/62 100 Oxymask 08/23/24 11:00 82 12 149/66 H 100 Oxymask 08/23/24 10:50 70 16 137/70 100 Oxymask 08/23/24 10:40 74 12 136/68 100 Oxymask 08/23/24 10:30 86 13 143/75 H 100 Oxymask 08/23/24 10:21 36.3 C L 96 H 19 173/99 H 99 Oxymask 08/23/24 06:40 36.5 C 67 18 197/97 H 95 Room Air O2 Flow Rate 08/23/24 12:28 08/23/24 11:50 08/23/24 11:20 08/23/24 11:10 3 08/23/24 11:00 5 08/23/24 10:50 8 08/23/24 10:40 8 08/23/24 10:30 8 08/23/24 10:21 8 08/23/24 06:40
[2024-08-23] MEDS: LACTATED RINGER'S 1,000 ML IV SCH (12:40)
--- OUTSIDE RECORDS SUMMARY | 2024-08-23 14:34 | External Medical Summary | Summary of Care ---
Author Name Unknown Organization [facility] Address [address] [facility] [place] [address] Phone [phone] Care Team Providers Care Roller Turner Name Role Phone Amarjit Mendez MD Primary Care Provider Encounter Details Date Type Department Care Team (Late st Contact Info) Description 08/09/2024 Result Scan Unspecified Department <No scans attached> Allergies Active Allergy Reactions Criticality Noted Date Comments Pollen 02/25/2015 Watery eyes, nasal congestion Fluticasone Unknown 09/08/2016 Lactase-Lactobacillus 12/05/2023 Tilactase 04/12/2022 documented as of this encounter (statuses as of 08/13/2024) Medications Medication Sig Dispensed Refills Start Date End Date Status traZODone HCl 100 MG Oral Tablet (Desyrel)Indication s:Other insomnia TAKE ONE AND ONE-HALF TABLET BY MOUTH AT BEDTIME 135 Tablet 05/18/2023 Active Citalopram Hydrobromide 40 MG Oral Tablet (CeleXA)Indications :Other depression TAKE 1 TABLET BY MOUTH EVERY MORNING 90 Tablet 3 09/29/2023 Active Budesonide 90 MCG/ACT Inhalation Aerosol Powder Breath Activated (Pulmicort Flexhaler)Indicatio ns:Cough, unspecified type Inhale 2 Puffs by mouth in the morning and 2 Puffs before bedtime. 1 Each 3 11/08/2023 Active Additional Information Patient not taking.Reported on 12/05/2023 Atorvastatin Calcium 10 MG Oral Tablet (Lipitor)Indication s:Hyperlipidemia with target LDL less than 100 Take 1 Tablet by mouth in the morning. 90 Tablet 3 12/05/2023 Active Pantoprazole Sodium 40 MG Oral Tablet Delayed Release (Protonix)Indicatio ns:Marina's esophagus with dysplasia TAKE 1 TABLET BY MOUTH EVERY MORNING BEFORE BREAKFAST. 90 Tablet 2 12/06/2023 Active Azelastine HCl 0.1 % Nasal Solution (Astelin)Indication s:Chronic cough,Chronic rhinitis Administer 1 [place] into nostril in the morning and 1 [place] before bedtime. 30 mL 6 12/14/2023 Active guaiFENesin-Codeine 100-10 MG/5ML Oral Syrup (Robitussin AC)Indications:Bron chitis, complicated Take 5 mL by mouth every 4 hours as needed for Cough. 120 mL 02/19/2024 Active Additional Information Patient not taking.Reported on 08/07/2024 LORazepam 1 MG Oral Tablet (Ativan)Indications :ALO (generalized anxiety disorder) Take 1 Tablet by mouth 2 times a day as needed for Anxiety. 15 Tablet 1 06/14/2024 Active oxyCODONE HCl 5 MG Oral Tablet (Oxy IR)Indications:Radi culopathy with lower extremity symptoms Take 1 Tablet by mouth 2 times a day as needed for Pain, Moderate. 30 Tablet 07/05/2024 Active Hospital, Clinic, or Other Facility Administered Medication Ordered Dose Route Frequency Start Date End Date Status Albuterol Sulfate (Proventil) (2.5 MG/3ML) 0.083% inhalation solution 2.5 mgIndications:Chronic cough 2.5 mg NEBULIZER ONCE PRN 01/23/2024 01/22/2025 Active documented as of this encounter (statuses as of 08/13/2024) Active Problems Problem Noted Date Diagnosed Date DDD (degenerative disc disease), lumbar 04/22/20 Radiculopathy with lower extremity symptoms 04/13 Gastroesophageal reflux disease without esophagi tis 03/17/2021 Major depressive disorder, recurrent, unspecifie d 12/10/2020 Primary osteoarthritis of both hands 08/26/2020 Hyperlipidemia with target LDL less than 100 11/2016 Metaplasia of esophagus 02/12/2016 Vitamin D deficiency 02/13/2014 ANGIOEDEMA 06/14/2011 Overview: 2 episodes 04/07/11; 05/19/11 Cervicalgia 03/24/2009 Restless leg syndrome 09/19/2006 Bunion, right foot 09/19/2006 ADVANCE DIRECTIVE INFORMATION 05/04/2005 Overview: No, Advance Directive brochure given to patient at prior appointment. Depression 12/15/2003 GENERAL OSTEOARTHROSIS 12/15/2003 documented as of this encounter (statuses as of 08/13/2024) Resolved Problems Problem Noted Date Diagnosed Date Resolved Date Other specified urticaria 06/14/2011 Dysfunction of eustachian tube 03/24/2009 10/03/2019 Chronic rhinitis 03/24/2009 10/03/2019 Spasm of muscle 03/24/2009 02/14/2018 ACUTE STRESS 03/24/2009 06/14/2011 ACUTE PHARYNGITIS 09/19/2006 01/08/2009 Overview: Resolved per Benign Acute Dxs Protocol #3 CRYPTIC EXUDATE 09/19/2006 10/03/2019 Malaise and fatigue 09/19/2006 02/15/20 18 PRURITIS- LEFT 2ND TOE 09/19/200606/14 Diverticulosis of colon 08/09/200402/2018 Myalgia and myositis 12/15/2003 018 documented as of this encounter (statuses as of 08/13/2024) Immunizations Name Administration Dates Next Due COVID-19 mRNA, LNP-s, No Pre serve, 2-Dose Series (Pfizer) 03/04/2021,02/11/2021 TDAP (age 10 and older)(Boostrix) 04/26/2019 documented as of this encounter Social History Tobacco Use Types Packs/Day Years Used Date Smoking Tobacco: Never Passive Smoke Exposure: Past Smokeless Tobacco: Never Comments:no passive smoke ex posures Alcohol Use Standard Drinks/Week Comments No 0 (1 standard drink = 0.6 oz pur e alcohol) PHQ-2 Answer Date Recorded PHQ Adult Total Score 0 08/07/2024 Hunger Vital Sign Answer Date Recorded Within the past 12 months, y ou worried that your food would run out before you got the money to buy more. Never true 03/17/20 23 Within the past 12 months, t he food you bought just didn't last and you didn't have money to get more. Never true 03/17/2023 Utilities Answer Date Recorded Do you have trouble paying y our heating, water, or electric bill? (Adult - for ages 18 years and over) Not on file 04/30/2024 Is your family able to pay t he heat, water, or electric bill? (Household - for ages 0-17 years) Not on file 04/30/2024 Does your family have access to good internet? (Household - for ages 0-17 years) Not on file 04/30/2024 Social Connections Answer Date Recorded How often do you feel lonely or isolated from those around you? (Adult - for ages 18 years and over) Not on file 04/30/2024 Sex and Gender Information Value Date Recorded Sex Assigned at Female 10/03/2019 12:40 PM EST Gender Identity Female 10/03/2019 12:40 PM EST Sexual Orientation Straight 10/03/2019 12 :40 PM EST Job Start Date Occupation Industry Not on file Not on file Not on file documented as of this encounter Functional Status Functional Status Response Date of Assess ment Are you deaf or do you have serious difficulty h earing? No 04/19/2023 Are you blind or do you have serious difficulty seeing, even when wearing glasses? No 04/19/2023 Do you have serious difficul ty walking or climbing stairs? (5 years old or older) No 04/19/2023 Do you have difficulty dress ing or bathing? (5 years old or older) No 04/19/2023 Because of a physical, menta l, or emotional condition, do you have difficulty doing errands alone such as visiting a doctor s office or shopping? (15 years old or older) No 04/19/20 Cognitive Status Response Date of Assessm ent Because of a physical, menta l, or emotional condition, do you have serious difficulty concentrating, remembering, or making decisions? (5 years old or older) No 04/19/2023 documented as of this encounter Plan of Treatment Upcoming Encounters Date Type Department Care Team (Late st Contact Info) Description 12/26/2024 1:00 PM EST Office Visit [address] [address] Amarjit Mendez MD [address] [place] [address] Scheduled Procedures Name Priority Associated Diagnoses Date/Ti me ESOPHAGOGASTRODUODENOSCOPY ( EGD), FLEXIBLE, TRANSORAL, DIAGNOSTIC Recall Marina's esophagus COLONOSCOPY FLEXIBLE PROXIMAL DIAGNOSTIC Recall Screen for colon cancer Health Maintenance Due Date Last Done Comments DXA Scan 08/30/1945 Adult Wellness Visit 08/30/2012 Influenza Vaccine (FLU shot) (#1) 2024 Zoster Vaccines (1 of 2) 08/06/2025 Pos tponed from 08/30/1996 (Patient Declined After Education) Depression Monitoring 08/07/2025 08/07/2024 Hepatitis C Screening 08/07/2025 Postpo flavio from 08/30/1964 (Patient Declined After Education) Pneumococcal Vaccine: 65+ Years (1 of 1 - PCV) 08/07/2025 Postponed from 08/30/2011 (Patient Declined After Education) Marina's Esophagus Surveilance 06/27/2027 06/27/2024, 06/27/2024, 05/10/2018, Additional history exists DTap/Tdap Vaccines (2 - Td or Tdap) 04/26/2029 04/26/2019, 08/09/2004 Pap Smear Discontinued 09/07/2017, 08/14, 10/10/2012, Additional history exists COVID-19 Vaccine Discontinued 03/04/2021, 02/11/2021 HPV (Gardasil) Vaccine Aged Out No lo nger eligible based on patient's age to complete this topic Hepatitis B Vaccine Aged Out No longe r eligible based on patient's age to complete this topic MENINGOCOCCAL (MENACTRA/MENVEO) Aged Out No longer eligible based on patient's age to complete this topic documented as of this encounter Medical Devices Implanted Type Area Buttermaker Device Identifier Shelf Expiration Date Model / Serial / Lot Lens Intraoc 21.5 - [id number] - [id number] Implanted:Qty: 1 on 05/04/2020 by Tristan Roberts MD at OR [facility] Right: Eye [employer] LOMB 10/12/2024 [id number] / [id number] / [id number] Lens Intraoc 21.0 - [id number] - [id number] Implanted:Qty: 1 on 05/12/2020 by Tristan Roberts MD at OR [facility] Left: Eye BAUSCH [employer] LOMB 01/10/2025 [id number] / [id number] / Duragen Plus 1x3 Dp 1013 Min5 - [id number] Implanted:Qty: 1 on 04/19/2023 by Raffaele Benavides MD at OR [facility] [employer] [id number] 10/12/2025 [id number] / [id number] / [id number] documented as of this encounter Procedures Procedure Name Priority Date/Time Associated Diagnosis Comments EKG SCANNED RESULT 08/09/2024 documented in this encounter Results * EKG SCANNED RESULT (08/09/2024) 08/09/2024 No Physician Data Unknown EKG documented in this encounter Advance Directives * Full Code (Latest Code Status on File) Date Activated Date Inactivated Comments 04/19/2023 5:51 PM 04/22/2023 4:46 PM This order re flects the patients wishes and were consensually agreed upon. Question Answer Comments Discussion of Advance Directives occurred with: Patient * Full Code Date Activated Date Inactivated Comments 04/19/2023 10:46 AM 04/19/2023 5:50 PM This order re flects the patients wishes and were consensually agreed upon. Question Answer Comments Discussion of Advance Direct giuliano occurred with: Not Discussed due to patient's condition Healthcare Agents on File Name Relationship Healthcare Agent Relationshi p Communication Vasiliy Marr Spouse Health Care Repr esentative (appointed verbally by patient or by statute hierarchy) [email or web address] ([email or web address] Care Teams Roller Turner Relationship Specialty Start Date End Date Amarjit Mendez MD [address] [place] [facility] [place] [address] PCP - General Family Medicine 05/19/11 documented as of this encounter
--- OUTSIDE RECORDS SUMMARY | 2024-08-23 14:35 | External Medical Summary | Summary of Care ---
Author Name Unknown Organization [facility] [address] [facility] [address] Phone [phone] Care Team Providers Care Ground Crewman Mission Support Name Role Phone Amarjit Mendez MD Primary Care Provider [phone] Encounter Details Date Type Department Care Team (Late st Contact Info) Description 08/13/2024 Orders Only [facility] [address] [place] [address] Amarjit Mendez MD [address] [place] [address] Allergies Active Allergy Reactions Criticality Noted Date [...] Solution (Astelin)Indication s:Chronic cough,Chronic rhinitis Administer 1 [place] into nostril in the morning and 1 [place] before bedtime. 30 mL 6 12/14/2023 Active [...] LEFT 2ND TOE 09/19/200606/14 Diverticulosis of colon 08/09/2004 04/0 02/2018 Myalgia and myositis 12/15/2003 018 documented as [...] money to buy more. Never true 03/17/20 Within the past 12 months, t he [...] Description 12/26/2024 1:00 PM EST Office Visit [facility] [address] [place] [address] Amarjit Mendez MD [address] [place] [address] Scheduled Procedures Name Priority Associated [...] this encounter Medical Devices Implanted Type Area Wind Turbine Engineer Device Identifier Shelf Expiration Date Model / Serial / Lot Lens Intraoc 21.5 - [id number] - [id number] Implanted:Qty: 1 on 05/04/2020 by Tristan Roberts MD at OR [facility] Right: Eye BAUSCH [employer]OMB 10/12/2024 [id number] / [id number] / [id number] Lens Intraoc 21.0 - [id number] - [id number] Implanted:Qty: 1 on 05/12/2020 by Tristan Roberts MD at OR [facility] Left: Eye BAUSCH [employer] LOMB 01/10/2025 [id number] / [id number] / Duragen Plus 1x3 Dp 1013 Min5 - [id number] Implanted:Qty: 1 on 04/19/2023 by Raffaele Benavides MD at [place] [facility] [employer] [id number] 10/12/2025 [id number] / [id number] / [id number] documented as of this encounter Procedures Procedure Name Priority Date/Time Associated Diagnosis Comments XR CHEST 2 VIEWS Routine 08/09/2024 CHEMISTRY-OUTSIDE Routine 08/09/2024 documented in this encounter Results * CHEMISTRY-OUTSIDE (08/09/2024) Not all results display below - see scan for full detail OUTSIDE LAB (SEE SCANNED REPORT) Comment:SCAN INCLUDES - PT I NR, PTT, BMP, UA, CBCD CREATININE 0.90 0.6 - 1.2 MG/DL OUTSIDE LAB (SEE SCANNED REPORT) EGFR 61.7 ML/MIN OUTSIDE LA B (SEE SCANNED REPORT) POTASSIUM 3.6 3.5 - 5.1 MMOL/L OUTSIDE LAB (SEE SCANNED REPORT) GLUCOSE 79 70 - 99 MG/DL OUTSIDE LAB (SEE SCANNED REPORT) HOURS FASTING OUTSID E LAB (SEE SCANNED REPORT) TRIGLYCERIDES-OU TSIDE LAB OUTSIDE LAB (SEE SCANNED REPORT) CHOLESTEROL-OUTS DAY LAB OUTSIDE LAB (SEE SCANNED REPORT) HDL-OUTSIDE LAB OUTS DAY LAB (SEE SCANNED REPORT) CHOL/HDL RATIO-OUTSIDE LAB OUTSIDE LAB (SEE SCANNED REPORT) LDL (CALCULATED)-OUT SIDE LAB OUTSIDE LAB (SEE SCANNED REPORT) LDL (DIRECT MEASURE)-OUTSIDE LAB OUTSIDE LAB (SEE SCANNED REPORT) HEMOGLOBIN, K2G-GTRQGFE LAB OUTSIDE LAB (SEE SCANNED REPORT) PHOSPHORUS-OUTSI DE LAB OUTSIDE LAB (SEE SCANNED REPORT) PTH-OUTSIDE LAB OUTS DAY LAB (SEE SCANNED REPORT) MICROALBUMIN RATIO-OUTSIDE LAB OUTSIDE LAB (SEE SCANNED REPORT) PROTEIN, UA-OUTSIDE LAB NEGATIVE NEGATIVE OUTSIDE LAB (SEE SCANNED REPORT) HGB 13.3 12.0 - 16.0 G/DL OUTSIDE LAB (SEE SCANNED REPORT) 08/09/2024 Arturo Evans DO LABORATORY OUTSIDE LAB (SEE SCANNED REPORT) * XR CHEST 2 VIEWS (08/09/2024) Anatomical Region Laterality Modality Chest Other 08/09/2024 Arturo Evans DO RADIOLOGY ( RAD GENERAL) documented in this encounter Advance Directives * [...] verbally by patient or by statute hierarchy) [email or web address] Care Teams Ground Crewman Mission Support Relationship Specialty Start Date End Date Amarjit Mendez MD [address] [place] [address] PCP - General Family Medicine 05/19/11 documented as of this encounter
[2024-08-23] MEDS: HYDROmorphone INJ 1 MG/ML SYRINGE IV PRN (15:00)
[2024-08-23] MEDS: ceFAZolin 1000MG 1,000 MG/7.5 ML SYR IV SCH (15:58)
--- NOTE | 2024-08-23 17:28 | Communication Note ---
Date of Service: August 23, 2024 Was alerted by patient's nurse that patient had reported double vision. Evaluated patient at bedside and patient states vision is "normal" now. She den ies blurry vision, diplopia, LAN, dizziness at this time. Denies CP, SOB, N/V, abdominal pain, paresthesias, speech changes. . PE: Visual shaw intact. PERRL, EOM's intact. No nystagmus, facial sensation is intact and symmetric, face is strong and symmetric, hearing grossly intact, no dysarthria, shoulder shrug intact, tongue is midline, normal movement, muscle tone normal, Bilateral manager erp strength strong and equal, pedal pushes and pulls intact bilaterally Possible anesthesia cause for diplopia. Has resolved now.
[2024-08-23] MEDS: ACETAMINOPHEN 500 MG TAB PO PRN (20:15)
[2024-08-23] MEDS: DOCUSATE SODIUM/SENNA 50/8.6MG TAB PO SCH (20:16)
[2024-08-23] MEDS: CITALOPRAM 40 MG TAB PO SCH (20:16)
[2024-08-23] MEDS: ATORVASTATIN 10 MG TAB PO SCH (20:16)
[2024-08-24] MEDS: traZODone HCL 100 MG TAB PO PRN (00:40)
[2024-08-24] MEDS: POLYETHYLENE (MIRALAX) 17 GM PACK PO SCH (05:40)
[2024-08-24 07:14] LABS: Hematocrit (blood only) 30.7 % (37.0-47.0); Hemoglobin 10.2 g/dl (12.0-16.0); Immature Granulocytes # (auto) 0.04 K/uL (0.01-0.20); Immature Granulocytes % (auto) 0.4 %; Lymphocytes # (auto) 1.35 K/uL (1.20-3.40); Lymphocytes % (auto) 12.6 %; Mean Corpuscular Hemoglobin 29.3 pg (25.0-34.0); Mean Corpuscular Hgb Conc 33.2 g/dL (32.0-36.0); Mean Corpuscular Volume 88.2 fL (80.0-100.0); Mean Platelet Volume 10.8 fL (9.4-12.4); Monocytes # (auto) 0.83 K/uL (0.11-0.59); Monocytes % (auto) 7.7 %; Neutrophils # (auto) 8.51 K/uL (1.40-6.50); Neutrophils % (auto) 79.3 %; Platelet Count 160 K/uL (130-400); RDW Coefficient of Variation 12.7 % (11.5-14.5); RDW Standard Deviation 40.9 fL (36.4-46.3); Red Blood Count 3.48 M/uL (4.20-5.40); White Blood Count 10.73 K/ul (4.8-10.8)
[2024-08-24 07:47] LABS: BUN Creatinine Ratio 18.1 (10-20); Calcium 8.5 mg/dl (8.6-10.3); Creatinine Clr Calc Pharmacy 59.3 ml/min; Potassium 3.7 mmol/L (3.5-5.1)
--- NOTE | 2024-08-24 08:10 | Hospitalist Progress Note ---
Date of Service August 24, 2024 Assessment & Plan (1) S/P spinal surgery: (2) Neurogenic claudication due to lumbar spinal stenosis: Plan: Post op day# 1 S/P revision decompression, excision of epidural mass, fusion L4- L5 by Dr Evans Pain management per ortho Wound management per ortho PT/OT as appropriate DVT prophylaxis per ortho Incentive spirometry Acute blood loss anemia, post-op and likely also dilutional - pre-op Hgb 13, current Hgb 10.2 - expected, no need for blood transfusion at this time - Monitor H&H (3) Hyperlipidemia: Plan: Continue atorvastatin (4) GERD (gastroesophageal reflux disease): Plan: Continue PPI (5) Anxiety and depression: Plan: Continue citalopram DVT Prophylaxis SCDs per ortho Disposition per primary service Follows with Dr Mendez for routine care Admission and Anticipated Discharge Date Admission Date: August 23, 2024 Subjective Pt seen in follow up of medical consultation , pt s/p lumbar spine surgery yesterday Laying in bed in no acute distress Denies any fevers chills, chest pain shortness of breath, nausea or abdominal pain Reports she has been ambulating Review of Systems Review of Systems: All systems reviewed & are unremarkable except as noted in Subjective Physical Exam Physical Exam: General: no distress, WDWN Head: normocephalic, atraumatic Eyes: conjunctiva non-injected, anicteric ENT: normal inspection external ears, nose, mucous membranes moist Neck: supple Lungs: clear, no respiratory distress, no wheezing/rhonchi/rales CV: RRR Abd: normal BS, soft, non-tender Ext: moves extremities, no LE edema Neuro: awake, alert, oriented, answers appropriately, moves extremities Skin: warm, dry Results & Data Results & Data Vital Signs (Past 12 Hours) Vital Signs Temp Pulse Resp BP Pulse Ox O2 Del Method 08/24/24 07:29 36.7 C 78 18 125/72 93 Room Air 08/24/24 04:25 37.1 C 90 18 119/67 94 Room Air 08/23/24 23:00 36.7 C 97 H 18 158/81 H 95 Room Air Laboratory Results 08/24/24 Range/Units 06:47 WBC 10.73 (4.8-10.8) K/ul RBC 3.48 L (4.20-5.40) M/uL Hgb 10.2 L (12.0-16.0) g/dl Hct 30.7 L (37.0-47.0) % MCV 88.2 (80.0-100.0) fL MCH 29.3 (25.0-34.0) pg MCHC 33.2 (32.0-36.0) g/dL RDW Std Deviation 40.9 (36.4-46.3) fL RDW Coeff of Airam 12.7 (11.5-14.5) % Plt Count 160 (130-400) K/uL MPV 10.8 (9.4-12.4) fL Immature Gran % (Auto) 0.4 % Neut % (Auto) 79.3 % Lymph % (Auto) 12.6 % [place] % (Auto) 7.7 % Eos % (Auto) 0.0 % Baso % (Auto) 0.0 % Neut # (Auto) 8.51 H (1.40-6.50) K/uL Lymph # (Auto) 1.35 (1.20-3.40) K/uL [place] # (Auto) 0.83 H (0.11-0.59) K/uL Eos # (Auto) 0.00 (0.00-0.50) K/uL Baso # (Auto) 0.00 (0.00-0.20) K/uL Immature Gran # (Auto) 0.04 (0.01-0.20) K/uL Sodium 140 (136-145) mmol/L Potassium 3.7 (3.5-5.1) mmol/L Chloride 110 H (98-107) mmol/L Carbon Dioxide 25 (21-32) mmol/L Anion Gap 5 (3-11) BUN 13 (6-23) mg/dl Creatinine 0.72 (0.6-1.2) mg/dl Est Cr Clr Drug Dosing 59.3 ml/min eGFR 86.06 BUN/Creatinine Ratio 18.1 (10-20) Glucose 110 H (70-99(Fasting)) mg/dl Calcium 8.5 L (8.6-10.3) mg/dl Medications Administered Current Inpatient Medications Acetaminophen (Acetaminophen 500 Mg Tab) 1,000 mg PO Q8H PRN PRN Reason: MILD Pain Scale 1,2,3 & Pre PT Stop: 09/22/24 12:04 Last Admin: 08/23/24 20:15 Dose: 1,000 mg Hydrocodone Bitart/Acetaminophen (Hydrocodone/Acetamophen 5/325mg Tab) 1 - 2 tab PO Q4H PRN PRN Reason: Pain & Pre PT Stop: 09/06/24 12:04 Al Hydrox/Mg Hydrox/Simethicone (Aluminum/Magnesium Susp 30 Ml Udc) 30 ml PO Q6H PRN PRN Reason: Dyspepsia Stop: 09/22/24 12:04 Atorvastatin Calcium (Atorvastatin 10 Mg Tab) 10 mg PO HS [facility] Stop: 09/22/24 20:59 Last Admin: 08/23/24 20:16 Dose: 10 mg Bisacodyl (Bisacodyl 10 Mg Supp) 10 mg GA DAILY PRN PRN Reason: Constipation Stop: 09/22/24 12:04 Citalopram Hydrobromide (Citalopram 40 Mg Tab) 40 mg PO HS [facility] Stop: 09/22/24 20:59 Last Admin: 08/23/24 20:16 Dose: 40 mg Diphenhydramine HCl (Diphenhydramine Capsule 25 Mg Cap) 25 mg PO Q4H PRN PRN Reason: ALLERGIES Stop: 09/22/24 12:04 Diphenhydramine HCl (Diphenhydramine Capsule 25 Mg Cap) 25 mg PO Q6H PRN PRN Reason: Allergic Rhinitis/Insomnia Stop: 09/22/24 12:04 Famotidine (Famotidine 20 Mg Tab) 20 mg PO Q12H PRN PRN Reason: Dyspepsia Stop: 09/22/24 12:04 Hydromorphone HCl (Hydromorphone Inj 0.5 Mg/0.5 Ml Syr) 0.5 mg IV Q3H PRN PRN Reason: MODERATE Pain (Scale 4,5,6) & Pre PT Stop: 09/06/24 12:04 Hydromorphone HCl (Hydromorphone Inj 1 Mg/Ml Syringe) 1 mg IV Q3H PRN PRN Reason: SEVERE Pain (Scale 7,8,9,10) Stop: 09/06/24 12:04 Last Admin: 08/24/24 05:39 Dose: 1 mg Hydroxyzine HCl (Hydroxyzine Hcl 25 Mg Tab) 25 mg PO Q8H PRN PRN Reason: Anxiety Stop: 09/22/24 12:04 Acetaminophen (Ofirmev) 1,000 mg in 100 mls @ 400 mls/hr IV Q8H PRN PRN Reason: Pain Rating 1-3 & Pre PT Stop: 08/24/24 12:06 Promethazine HCl (Phenergan) 12.5 mg in 50.5 mls @ 202 mls/hr IV Q6H PRN PRN Reason: Nausea And Vomiting Stop: 09/22/24 12:04 Dexamethasone 6 mg/ Syringe 1.5 mls @ 1 mls/min IV DAILY ROBIN Stop: 08/26/24 09:02 Influenza Virus Vaccine Quadrival (Do Not Administer Flu Vaccine) 1 each N/A PRN PRN PRN Reason: Notification Stop: 09/22/24 12:04 Lorazepam (Lorazepam 0.5 Mg Tab) 0.5 mg PO Q8H PRN PRN Reason: Sedation/Anxiety Stop: 09/22/24 12:04 Lorazepam (Lorazepam 2 Mg/1 Ml Vial) 0.5 mg IV Q8H PRN PRN Reason: Sedation/Anxiety Stop: 09/22/24 12:04 Magnesium Hydroxide (Magnesium Hydroxide Susp 30 Ml Udc) 30 ml PO Q24H PRN PRN Reason: Constipation Stop: 09/22/24 12:04 Metoclopramide HCl (Metoclopramide Hcl Inj 5 Mg/Ml 2 Ml Vial) 10 mg IV Q6H PRN PRN Reason: Nausea &/or Vomiting Stop: 09/22/24 12:04 Naloxone HCl (Naloxone Hcl 0.4 Mg/1 Ml Vial/Carp) 0.1 mg IV Q5M PRN PRN Reason: Oversedation/Resp depression Stop: 09/22/24 12:04 Ondansetron HCl (Ondansetron Inj 2 Mg/Ml 2 Ml Vial) 4 mg IV Q6H PRN PRN Reason: Nausea &/or Vomiting Stop: 09/22/24 12:04 Ondansetron HCl (Ondansetron 4 Mg Od Tab) 4 mg PO Q6H PRN PRN Reason: Nausea Stop: 09/22/24 12:04 Pantoprazole Sodium (Pantoprazole 40 Mg Tab) 40 mg PO QAM ROBIN Stop: 09/23/24 08:59 Pneumococcal Polyvalent Vaccine (Do Not Administer Pneumococcal Vaccine) 1 each N/A PRN PRN PRN Reason: Notification Stop: 09/22/24 12:04 Polyethylene Glycol (Polyethylene (Miralax) 17 Gm Pack) 17 gm PO Q6 ROBIN Stop: 09/23/24 05:59 Last Admin: 08/24/24 05:40 Dose: 17 gm Senna/Docusate Sodium (Docusate Sodium/Senna 50/8.6mg Tab) 2 tab PO HS ROBIN Stop: 09/22/24 20:59 Last Admin: 08/23/24 20:16 Dose: 2 tab Sodium Biphosphate/Sodium Phosphate (Sod Phosphate/Sod Biphosphate Enema 132 Ml Btl) 132 ml GA ONE PRN PRN Reason: Constipation Stop: 09/22/24 12:04 Tramadol HCl (Tramadol Hcl 50 Mg Tablet) 50 - 100 mg PO Q4H PRN PRN Reason: Moderate-Severe pain & Pre PT Stop: 09/22/24 12:04 Trazodone HCl (Trazodone Hcl 100 Mg Tab) 100 mg PO HS PRN PRN Reason: Sleep Stop: 09/22/24 12:04 Last Admin: 08/24/24 00:40 Dose: 100 mg
[2024-08-24] MEDS: PANTOprazole 40 MG TAB PO SCH (08:14)
[2024-08-24] MEDS: dexAMETHasone 6 MG in SYRINGE 0 ML IV SCH (08:14)
--- NOTE | 2024-08-24 08:51 | Orthopedic Progress Note ---
Date of Service August 24, 2024 Assessment & Plan (1) Neurogenic claudication due to lumbar spinal stenosis: Plan: At this time we will continue physical therapy monitor ARVIND operatively discharge home in the next few days. Admission and Anticipated Discharge Date Admission Date: August 23, 2024 Subjective Back pain controlled leg pain improved Physical Exam Physical Exam: Patient has good strength testing. Peers comfortable. Results & Data Vital Signs (Past 12 Hours) Vital Signs Temp Pulse Resp BP Pulse Ox O2 Del Method 08/24/24 07:29 36.7 C 78 18 125/72 93 Room Air 08/24/24 04:25 37.1 C 90 18 119/67 94 Room Air 08/23/24 23:00 36.7 C 97 H 18 158/81 H 95 Room Air
[2024-08-24] MEDS: HYDROCODONE/ACETAMOPHEN 5/325MG TAB PO PRN (11:55)
[2024-08-24 15:10] VITALS: O2SAT 94
[2024-08-24 21:40] VITALS: RESP 16
[2024-08-25] MEDS: traMADol HCL 50 MG TABLET PO PRN (06:33)
[2024-08-25 07:09] LABS: Hematocrit (blood only) 30.9 % (37.0-47.0); Hemoglobin 9.8 g/dl (12.0-16.0); Mean Corpuscular Hemoglobin 28.9 pg (25.0-34.0); Mean Corpuscular Hgb Conc 31.7 g/dL (32.0-36.0); Mean Corpuscular Volume 91.2 fL (80.0-100.0); Mean Platelet Volume 11.2 fL (9.4-12.4); Platelet Count 141 K/uL (130-400); RDW Coefficient of Variation 12.8 % (11.5-14.5); RDW Standard Deviation 42.5 fL (36.4-46.3); Red Blood Count 3.39 M/uL (4.20-5.40); White Blood Count 9.56 K/ul (4.8-10.8)
--- NOTE | 2024-08-25 07:40 | Hospitalist Progress Note ---
Date of Service August 25, 2024 Assessment & Plan (1) S/P spinal surgery: (2) Neurogenic claudication due to lumbar spinal stenosis: Plan: Post op day# 2 S/P revision decompression, excision of epidural mass, fusion L4- L5 by Dr Evans Pain management per ortho Wound management per ortho PT/OT as appropriate DVT prophylaxis per ortho Incentive spirometry Acute blood loss anemia, post-op and likely also dilutional - pre-op Hgb 13, post op Hgb 10.2 -> now 9.8 - expected, no need for blood transfusion at this time - Monitor H&H (3) Hyperlipidemia: Plan: Continue atorvastatin (4) GERD (gastroesophageal reflux disease): Plan: Continue PPI (5) Anxiety and depression: Plan: Continue citalopram DVT Prophylaxis SCDs per ortho Disposition per primary service Follows with Dr Mendez for routine care Admission and Anticipated Discharge Date Admission Date: August 23, 2024 Subjective Pt seen in follow up of medical consultation , pt s/p lumbar spine surgery Laying in bed in no acute distress Denies any fevers chills, chest pain shortness of breath, nausea or abdominal pain Reports she has been ambulating and had a BM Review of Systems Review of Systems: All systems reviewed & are unremarkable except as noted in Subjective Physical Exam Physical Exam: General: no distress, WDWN Head: normocephalic, atraumatic Eyes: conjunctiva non-injected, anicteric ENT: normal inspection external ears, nose, mucous membranes moist Neck: supple Lungs: clear, no respiratory distress, no wheezing/rhonchi/rales CV: RRR Abd: normal BS, soft, non-tender Ext: moves extremities, no LE edema Neuro: awake, alert, oriented, answers appropriately, moves extremities Skin: warm, dry Results & Data Results & Data Vital Signs (Past 12 Hours) Vital Signs Temp Pulse Resp BP Pulse Ox O2 Del Method 08/24/24 20:14 36.8 C 70 16 172/83 H 94 Room Air Laboratory Results 08/25/24 Range/Units 06:17 WBC 9.56 (4.8-10.8) K/ul RBC 3.39 L (4.20-5.40) M/uL Hgb 9.8 L (12.0-16.0) g/dl Hct 30.9 L (37.0-47.0) % MCV 91.2 (80.0-100.0) fL MCH 28.9 (25.0-34.0) pg MCHC 31.7 L (32.0-36.0) g/dL RDW Std Deviation 42.5 (36.4-46.3) fL RDW Coeff of Airam 12.8 (11.5-14.5) % Plt Count 141 (130-400) K/uL MPV 11.2 (9.4-12.4) fL Sodium 140 (136-145) mmol/L Potassium 4.1 (3.5-5.1) mmol/L Chloride 107 (98-107) mmol/L Carbon Dioxide 30 (21-32) mmol/L Anion Gap 3 (3-11) BUN 19 (6-23) mg/dl Creatinine 0.70 (0.6-1.2) mg/dl Est Cr Clr Drug Dosing 61.0 ml/min eGFR 89.02 BUN/Creatinine Ratio 27.1 H (10-20) Glucose 120 H (70-99(Fasting)) mg/dl Calcium 8.6 (8.6-10.3) mg/dl Phosphorus 2.0 L (2.5-4.9) mg/dl Magnesium 1.9 (1.7-2.4) mg/dl Medications Administered Current Inpatient Medications Acetaminophen (Acetaminophen 500 Mg Tab) 1,000 mg PO Q8H PRN PRN Reason: MILD Pain Scale 1,2,3 & Pre PT Stop: 09/22/24 12:04 Last Admin: 08/23/24 20:15 Dose: 1,000 mg Hydrocodone Bitart/Acetaminophen (Hydrocodone/Acetamophen 5/325mg Tab) 1 - 2 tab PO Q4H PRN PRN Reason: Pain & Pre PT Stop: 09/06/24 12:04 Last Admin: 08/25/24 03:14 Dose: 2 tab Al Hydrox/Mg Hydrox/Simethicone (Aluminum/Magnesium Susp 30 Ml Udc) 30 ml PO Q6H PRN PRN Reason: Dyspepsia Stop: 09/22/24 12:04 Atorvastatin Calcium (Atorvastatin 10 Mg Tab) 10 mg PO HS ROBIN Stop: 09/22/24 20:59 Last Admin: 08/24/24 19:41 Dose: 10 mg Bisacodyl (Bisacodyl 10 Mg Supp) 10 mg CA DAILY PRN PRN Reason: Constipation Stop: 09/22/24 12:04 Citalopram Hydrobromide (Citalopram 40 Mg Tab) 40 mg PO HS ROBIN Stop: 09/22/24 20:59 Last Admin: 08/24/24 19:41 Dose: 40 mg Diphenhydramine HCl (Diphenhydramine Capsule 25 Mg Cap) 25 mg PO Q4H PRN PRN Reason: ALLERGIES Stop: 09/22/24 12:04 Diphenhydramine HCl (Diphenhydramine Capsule 25 Mg Cap) 25 mg PO Q6H PRN PRN Reason: Allergic Rhinitis/Insomnia Stop: 09/22/24 12:04 Famotidine (Famotidine 20 Mg Tab) 20 mg PO Q12H PRN PRN Reason: Dyspepsia Stop: 09/22/24 12:04 Hydromorphone HCl (Hydromorphone Inj 0.5 Mg/0.5 Ml Syr) 0.5 mg IV Q3H PRN PRN Reason: MODERATE Pain (Scale 4,5,6) & Pre PT Stop: 09/06/24 12:04 Hydromorphone HCl (Hydromorphone Inj 1 Mg/Ml Syringe) 1 mg IV Q3H PRN PRN Reason: SEVERE Pain (Scale 7,8,9,10) Stop: 09/06/24 12:04 Last Admin: 08/24/24 05:39 Dose: 1 mg Hydroxyzine HCl (Hydroxyzine Hcl 25 Mg Tab) 25 mg PO Q8H PRN PRN Reason: Anxiety Stop: 09/22/24 12:04 Promethazine HCl (Phenergan) 12.5 mg in 50.5 mls @ 202 mls/hr IV Q6H PRN PRN Reason: Nausea And Vomiting Stop: 09/22/24 12:04 Dexamethasone 6 mg/ Syringe 1.5 mls @ 1 mls/min IV DAILY ROBIN Stop: 08/26/24 09:02 Last Admin: 08/24/24 08:14 Dose: 1 mls/min Influenza Virus Vaccine Quadrival (Do Not Administer Flu Vaccine) 1 each N/A PRN PRN PRN Reason: Notification Stop: 09/22/24 12:04 Lorazepam (Lorazepam 0.5 Mg Tab) 0.5 mg PO Q8H PRN PRN Reason: Sedation/Anxiety Stop: 09/22/24 12:04 Lorazepam (Lorazepam 2 Mg/1 Ml Vial) 0.5 mg IV Q8H PRN PRN Reason: Sedation/Anxiety Stop: 09/22/24 12:04 Magnesium Hydroxide (Magnesium Hydroxide Susp 30 Ml Udc) 30 ml PO Q24H PRN PRN Reason: Constipation Stop: 09/22/24 12:04 Metoclopramide HCl (Metoclopramide Hcl Inj 5 Mg/Ml 2 Ml Vial) 10 mg IV Q6H PRN PRN Reason: Nausea &/or Vomiting Stop: 09/22/24 12:04 Naloxone HCl (Naloxone Hcl 0.4 Mg/1 Ml Vial/Carp) 0.1 mg IV Q5M PRN PRN Reason: Oversedation/Resp depression Stop: 09/22/24 12:04 Ondansetron HCl (Ondansetron Inj 2 Mg/Ml 2 Ml Vial) 4 mg IV Q6H PRN PRN Reason: Nausea &/or Vomiting Stop: 09/22/24 12:04 Ondansetron HCl (Ondansetron 4 Mg Od Tab) 4 mg PO Q6H PRN PRN Reason: Nausea Stop: 09/22/24 12:04 Pantoprazole Sodium (Pantoprazole 40 Mg Tab) 40 mg PO QAM ROBIN Stop: 09/23/24 08:59 Last Admin: 08/24/24 08:14 Dose: 40 mg Pneumococcal Polyvalent Vaccine (Do Not Administer Pneumococcal Vaccine) 1 each N/A PRN PRN PRN Reason: Notification Stop: 09/22/24 12:04 Polyethylene Glycol (Polyethylene (Miralax) 17 Gm Pack) 17 gm PO Q6 ROBIN Stop: 09/23/24 05:59 Last Admin: 08/25/24 06:33 Dose: 17 gm Senna/Docusate Sodium (Docusate Sodium/Senna 50/8.6mg Tab) 2 tab PO HS ROBIN Stop: 09/22/24 20:59 Last Admin: 08/24/24 19:39 Dose: 2 tab Sodium Biphosphate/Sodium Phosphate (Sod Phosphate/Sod Biphosphate Enema 132 Ml Btl) 132 ml CA ONE PRN PRN Reason: Constipation Stop: 09/22/24 12:04 Tramadol HCl (Tramadol Hcl 50 Mg Tablet) 50 - 100 mg PO Q4H PRN PRN Reason: Moderate-Severe pain & Pre PT Stop: 09/22/24 12:04 Last Admin: 08/25/24 06:33 Dose: 100 mg Trazodone HCl (Trazodone Hcl 100 Mg Tab) 100 mg PO HS PRN PRN Reason: Sleep Stop: 09/22/24 12:04 Last Admin: 08/24/24 00:40 Dose: 100 mg
[2024-08-25 07:44] LABS: BUN Creatinine Ratio 27.1 (10-20); Calcium 8.6 mg/dl (8.6-10.3); Magnesium 1.9 mg/dl (1.7-2.4); Potassium 4.1 mmol/L (3.5-5.1)
[2024-08-25 07:53] VITALS: BP 164/71; PULSE 66; TEMP 97.7
--- NOTE | 2024-08-25 10:43 | Discharge Summary ---
Date of Service August 25, 2024 Admission HPI Per Admitting Provider This is a 78-year-old female presents chronic persistent back and leg pain after failing course of nonoperative care is here for surgical invention. Principal Diagnosis Lumbar spinal stenosis with neurogenic claudication Discharge Data Allergies Allergy/AdvReac Type Severity Reaction Status Date / Time oxycodone Allergy Urticaria Verified 08/23/24 06:38 Consultations 08/23/24 12:05 Consult Hospitalist Routine Procedures Performed Operation Date: 08/23/24 07:45 Actual Procedures p L4-L5 Decompression and Fusion, Spinal Cord Monitoring(Not Applicable) - Arturo Evans DO Ordered Studies 08/23/24 07:45 FL lumbar spine 2-3V Routine Hospital Course (1) Neurogenic claudication due to lumbar spinal stenosis: Patient underwent lumbar decompression fusion tolerated this well was taken to the orthopedic for postoperative. Postop patient progressed appropriately. Ambulating well. Marked improvement of her leg pain. ARVIND drain decreasing. Extra strength testing. Subsidy discharged home. Discharge orders instructions from the chart for further review. Total Time Total Time Spent Total Time Spent (In Minutes): 20 minutes Discharge Plan Discharge Items Patient Disposition: Home - Self-Care Reason For Visit: POSTOP Discharge Diagnosis: Lumbar spinal stenosis with spondylolisthesis and neurogenic claudication Activity: As commented below Non-emergency contact: Primary Care Provider Call non-emergency contact if: you have any medication questions Follow-up/Referrals: Amarjit Mendez MD [Primary Care Provider] - Diet: Regular Addtl Attending Provider Instructions: ACTIVITY RECOMMENDATIONS: SELF CARE INSTRUCTIONS AFTER THORACIC/LUMBAR FUSIONS 1. You may walk to your tolerance. It is good exercise for your legs and back. Expect some back and intermittent leg aches and pains. 2. You may perform "counter-top" level activities (make a sandwich, frank with a project, etc.). 3. No bending or lifting of more than 10 pounds or back twisting of any nature (roll like a log when turning in bed). 4. You may ride in a car for 20-30 minutes at a time. No driving until after your first visit with your doctor. 5. Frequent changes of position and restricting sitting to 30 minutes at a time will help limit the amount of back spasms and stiffness you may experience. 6. You may discontinue the use of ambulatory aids (cane, crutches, etc.) once your strength and confidence allow. 7. 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 Do not take a tub bath, sit in a hot tub or go into a swimming pool until after your first recheck in the office. 8. You may resume previous diet. SPECIAL CARE INSTRUCTIONS: VERY IMPORTANT TO READ AND REVIEW A. Your surgical incision has been closed with a cosmetic suture under the skin that will dissolve in about 6 weeks. In 14 days, you can use a pair of clean scissors and cut the suture that is left outside of the skin at the ends of your incision. 1. The small skin tapes can be removed 7 days after surgery if they have not fallen off by that point. 2. You may keep the wound open to air as much as possible to promote healing after post-op day number 5 unless told otherwise by your doctor. 3. If you think the wound looks like it is becoming infected (redness or worsening drainage) and/or you are experiencing fever, chill or worsening back pain and muscle spasms, contact the office so that we may evaluate you as soon as possible. B. Complications are uncommon, but please contact us if you have any signs or symptoms of: 1. wound infection (fever higher than 102.5 degrees F, redness, separation of wound, drainage, or increasing pain from the incision) 2. blood clots in legs (pain, swelling, redness and warmth in legs) 3. urinary tract infection (fever higher than 102.5 degrees F, burning upon urination or increased frequency of urination) 4. nerve problems (inability to walk on your toes or heels, numbness, loss of bowel or bladder control) 5. any other symptoms that concern you C. Please call the office at if you have any concerns or questions about your operation or recovery. D. No smoking! Smoking drastically decreases the chance of a solid fusion. E. Do not take any anti-inflammatory medications (Indocin, Advil, Motrin, Aspirin, Naprosyn, etc.) as these may inhibit the chance of a solid fusion. Tylenol is okay to take for pain. MANAGING PAIN AFTER SPINAL SURGERY 1. Narcotic medication is intended for short-term use and will be provided for surgical pain. Surgical pain usually lasts for a period of 4-6 weeks. Narcotic medication includes Percocet, Vicodin, Darvocet, Tylenol #3 or Lortab. 2. Longer-term pain is more appropriately treated with non-narcotic medication such as Tylenol ES. 3. Muscle spasm is not appropriately treated with narcotics. Muscle relaxers such as Soma, Flexeril or Skelaxin can be used along with Tylenol ES. 4. Remember that we all live with some "aches and pains". This is not unusual or uncommon after an injury or as we get older. a. Back pain is expected and may include muscle spasms for 4 to 6 weeks after surgery. The pain should gradually improve. If the pain worsens for no apparent reason, please contact the office. b. Intermittent leg pain may also be experienced and should not be concerned about unless it worsens for no apparent reason. If so, please contact the office. 5. We will provide appropriate medication within the normal guidelines of their prescribed use. We will also be very cautious and aware of potential abuse and extended duration of patients' medication needs. a. Pain medications are for your comfort and to assist with sleep and rest so that the tissue can heal. They are not provided in order to return to normal activity and should not be used through the day. To do so or worsening pain at night can result from ongoing tissue damage and development of tolerance to the prescribed medicine. 6. Please allow 2-3 days to process refills. Prescriptions will not be mailed but must be picked up at the office. FOLLOW UP VISIT: Keep your scheduled follow-up appointment. Any questions, please call the office at . Pending Studies at Discharge: No Stand-Alone Forms: [facility] [employer], Smoking Cessation Medications and DC Order Prescriptions: New hydrocodone-acetaminophen 5-325 mg tablet 1 tab PO Q6H PRN (Reason: pain) Qty: 30 0RF tramadol 50 mg tablet 50 mg PO Q6H PRN (Reason: pain, moderate) Qty: 30 0RF Continued pantoprazole 40 mg Tablet,Delayed Release (Dr/Ec) 40 mg PO QAM diphenhydramine HCl [Benadryl] 25 mg Capsule 25 mg PO UD PRN (Reason: ALLERGIES) citalopram 40 mg Tablet 40 mg PO HS atorvastatin 10 mg Tablet 10 mg PO HS trazodone 100 mg tablet 100 mg PO HS PRN (Reason: Sleep) lorazepam 1 mg tablet 1 mg PO BID PRN (Reason: Anxiety) Discharge Orders: Discharge Order (Routine); Ordered 08/25/24 Ordered By: Arturo Evans Admission Data Admit Date/Time: 08/23/24 09:52 Attending Provider: Arturo Evans Admit Provider: Arturo Evans Primary Care Provider: Amarjit Mendez Other Providers: Iraida Ley Other Interventions: Discharge Summary Assessment (RN) Last Done: 08/25/24 10:34
[2024-08-25] MEDS: POT PHOSPHATE MONOBASIC W/ SOD TAB PO SCH (12:43)
== END 2024-08-25 13:43 | disposition home or self-care (01) | DRG 402 ==
LOC: ASU 06:15 → 3W 09:52

== ENCOUNTER 2024-08-29 05:22 | Observation (INO) ==
--- NOTE | 2024-08-29 05:40 | Emergency Department Note ---
Impression & Plan Intractable back pain, S/P spinal surgery ED Provider Note Name: CASSANDRA YORK Age: 78 Sex: Female Arrives Via: Walk-In Informant: Patient, ED Provider: Justen Mendosa MD Chief Complaint: Low back pain Impression: As per impressions above Medical Decision Making: Pleasant 78-year-old female arrives for evaluation of severe worsening of her low back pain. Patient with spinal surgery 1 week ago does admit she had a fall on her buttocks yesterday and since then worsening pain. Home medication not working. Multiple rounds of IV pain meds eventually got patient comfortable here. CT lumbar spine reveals no fracture or evidence of hardware failure. Seroma consistent postoperative and does not seem to be clear evidence of cause. No evidence of infectious etiology at this time. Laboratory otherwise unremarkable. Discussed with spinal surgeon and due to inability to control pain at home will bring in to hospitalist service. At this point there is no evidence of need for emergency surgery she has good strength bilateral legs does not have loss of bowel or bladder, notes she feels like she is losing bladder control due to inability to get to the bathroom. Lloyd was placed. Will bring in for further monitoring and management. Patient and are comfortable with plan. Triage/Nursing Notes reviewed by Me External Chart Review by me: Reviewed discharge summary from 08/26/2024 hospitalization for lumbar decompressive surgery Differential:Lumbar fracture, hardware failure, epidural abscess, seroma, infection, inflammatory, many other pathologies considered Vital Signs: reviewed and remarkable for hypertension tachycardia Interventions: Dilaudid 0.5 mg IV x 2, Toradol IV Labs:ED labs Reviewed by me and remarkable for no significant abnormalities Imaging:CT of the lumbar spine as per my informal interpretation reveals no evidence of hardware fracture nor lumbar fracture or misalignment at this time. Confirmed with radiologist. There is a seroma subcutaneously consistent with recent operative Cardiac/Tele Monitoring: Cardiac Monitoring: An Order was placed for continuous cardiac monitoring. The monitor shows a rate of 70 with a normal sinus rhythm. Consults:Discussed with Dr. Evans of spinal surgery who did review imaging findings and agrees with plan for hospitalization for pain management. Discussed with hospitalist who will further evaluate Plan: Disposition:Hospitalization. Condition: Good History of Present Illness: 78-year-old female arrives for evaluation of low back pain. Patient notes she had spinal surgery [address] Evans. Initially having some pain control issues. Notes she accidentally took too much of her pain medicines for which she was evaluated yesterday morning in the ER. Since getting home she is continue to take medicines as prescribed. She admits that after getting home yesterday she had a fall on the ground. She landed on her buttocks. She states since then significant worsening of her pain and several falls since then. She is reporting that she is losing bladder control due to inability to get up and go to the bathroom however denies any paresthesias within the groin. She states pain is severe and bilateral low back radiates to the right lower back as well. Radiates down both legs. States her legs are too weak to walk around. States she has too much pain to do anything. Unable to sleep due to the pain. Past Medical History:See Below Home Medications:See Below Allergies:See Below Vitals:Blood Pressure: 194/96, Pulse 107, RR 20, T 36.8C, O2 98% on RA Physical Exam: GENERAL: Patient is severely uncomfortable/anxious appearing and in severe distress. Patient is writhing all over the bed unable to stay still for examination RESPIRATORY: No dyspnea. Clear to auscultation and equal bilaterally. CARDIOVASCULAR: Tachy.No murmur appreciated. GASTROINTESTINAL: Abdomen soft, non-tender, no peritonitis. BACK: Lumbar incision scar healing well without drainage. No significant fluctuance. Diffuse nonspecific tenderness of entire low back. EXTREMITIES: Normal motion all extremities, no cyanosis, no edema. NEUROLOGIC: Alert and oriented. No focal neurologic deficits appreciated SKIN: No rash, no jaundice, no diaphoresis. PSYCH: Appropriate GCS: 15 ED Course: Times/Reassessments: Patient gradually improving though still quite uncomfortable to the point of inability to go home Justen Mendosa MD Past Med/Surg History Problem List (Updated 08/29/24 @ 23:22 by Justen Mendosa MD) Intractable back pain (Acute) Anxiety about health (Acute) Medication adverse effect (Acute) Anxiety and depression GERD (gastroesophageal reflux disease) Hyperlipidemia S/P spinal surgery (Acute) Neurogenic claudication due to lumbar spinal stenosis Arthritis of knee, left Myelopathy concurrent with and due to spinal stenosis of cervical region Encounter for pre-operative examination Environmental allergies Pollen Medical History Lactose intolerance Occasional cough Chronic, dry- at baseline, s/p multiple unremarkable CXRs Trouble getting to sleep Barretts esophagus History of migraine headaches Neuropathy left foot Anxiety Umbilical hernia Present Spinal stenosis Fibromyalgia Osteoarthritis Temporomandibular joint disorder Hx clicking, no locking Surgical History History of total left knee replacement (TKR) Left TKA (03/31/21): SAB at [facility] + regional at [facility] History of back surgery (2022) [facility] History of breast biopsy "Negative" H/O bilateral breast reduction surgery S/P trigger finger release B/L hands History of cataract surgery R/L Hx of fusion of cervical spine C4-6 History of laminectomy Lumbar History of esophagogastroduodenoscopy (EGD) History of colonoscopy [place] teeth removed History of nasal septoplasty S/P arthroscopic partial lateral meniscectomy Left Family History Other No significant family history Social History Smoking Status: Never smoker Second Hand Exposure: No; Do You Dip or Chew Tobacco: No; Hx Alcohol Use: No Hx Substance Use: No Preferred Language: Persian Communication Ability: Effective Boom Boss Required: No Beliefs That Will Affect Care: None marital status: Current Living Situation: Spouse Other Information That Helps Us Care for You: No Feels Safe at Home: Yes Assistive Devices: Walker Allergies Allergies Allergy/AdvReac Type Severity Reaction Status Date / Time oxycodone Allergy Urticaria Verified 08/29/24 08:17 Home Meds Home Medications Medication Instructions Recorded Confirmed diphenhydramine HCl 25 mg capsule 25 mg PO UD PRN ALLERGIES 05/22/19 08/29/24 (Benadryl) pantoprazole 40 mg tablet,delayed 40 mg PO QAM 05/22/19 08/29/24 release citalopram 40 mg tablet 40 mg PO HS 09/17/19 08/29/24 atorvastatin 10 mg tablet 10 mg PO HS 03/08/21 08/29/24 trazodone 100 mg tablet 100 mg PO HS PRN Sleep 07/01/21 08/29/24 lorazepam 1 mg tablet 1 mg PO BID PRN Anxiety 08/23/24 08/29/24 Previous Rx's Medication Instructions Recorded hydrocodone 5 mg-acetaminophen 325 1 tab PO Q6H PRN pain #30 tabs 08/23/24 mg tablet tramadol 50 mg tablet 50 mg PO Q6H PRN pain, moderate 08/23/24 #30 tabs Results & Data (ED) Vital Signs Vital Signs - 24 hr 08/29/24 05:25 08/29/24 06:05 08/29/24 06:30 Temperature 36.8 C Temperature Source Temporal Artery Scan Pulse Rate 107 H Pulse Rate [Left Radial] Pulse Rate from SpO2 Sensor Pulse Rhythm [Left Radial] Pulse Strength [Left Radial] Respiratory Rate 20 Respiratory Effort / Characteristics Non-Labored Spontaneous Respiratory Depth Normal Respiratory Pattern Blood Pressure 194/96 H 193/99 H 180/102 H Blood Pressure [Right Arm] Blood Pressure Mean 128 140 135 Blood Pressure Mean [Right Arm] Blood Pressure Position [Right Arm] Pulse Oximetry 98 Oxygen Delivery Method Room Air Sepsis Recent Fever Within 48 Hours No Sepsis New/Unexplained Change in Mental Status N/A Sepsis Action Taken by Nursing No Action Required 08/29/24 06:30 08/29/24 06:33 08/29/24 06:45 Temperature Temperature Source Pulse Rate 90 Pulse Rate [Left Radial] 86 Pulse Rate from SpO2 Sensor 90 Pulse Rhythm [Left Radial] Regular Pulse Strength [Left Radial] Normal Respiratory Rate 19 20 Respiratory Effort / Characteristics Non-Labored Spontaneous Respiratory Depth Normal Respiratory Pattern Regular Blood Pressure 180/102 H Blood Pressure [Right Arm] 180/102 H Blood Pressure Mean 135 Blood Pressure Mean [Right Arm] 128 Blood Pressure Position [Right Arm] Lying Pulse Oximetry 93 95 Oxygen Delivery Method Room Air Sepsis Recent Fever Within 48 Hours Sepsis New/Unexplained Change in Mental Status Sepsis Action Taken by Nursing 08/29/24 06:57 08/29/24 07:00 08/29/24 07:00 Temperature Temperature Source Pulse Rate 98 H Pulse Rate [Left Radial] Pulse Rate from SpO2 Sensor 98 H Pulse Rhythm [Left Radial] Pulse Strength [Left Radial] Respiratory Rate 19 Respiratory Effort / Characteristics Respiratory Depth Respiratory Pattern Blood Pressure 169/100 H 169/100 H Blood Pressure [Right Arm] Blood Pressure Mean 132 132 Blood Pressure Mean [Right Arm] Blood Pressure Position [Right Arm] Pulse Oximetry 93 Oxygen Delivery Method Sepsis Recent Fever Within 48 Hours Sepsis New/Unexplained Change in Mental Status Sepsis Action Taken by Nursing 08/29/24 07:15 08/29/24 07:30 08/29/24 07:33 Temperature Temperature Source Pulse Rate 94 H 84 Pulse Rate [Left Radial] Pulse Rate from SpO2 Sensor 93 H 83 Pulse Rhythm [Left Radial] Pulse Strength [Left Radial] Respiratory Rate 16 Respiratory Effort / Characteristics Respiratory Depth Respiratory Pattern Blood Pressure 152/90 H Blood Pressure [Right Arm] Blood Pressure Mean 117 Blood Pressure Mean [Right Arm] Blood Pressure Position [Right Arm] Pulse Oximetry 94 93 Oxygen Delivery Method Sepsis Recent Fever Within 48 Hours Sepsis New/Unexplained Change in Mental Status Sepsis Action Taken by Nursing 08/29/24 07:45 Temperature Temperature Source Pulse Rate 80 Pulse Rate [Left Radial] Pulse Rate from SpO2 Sensor 82 Pulse Rhythm [Left Radial] Pulse Strength [Left Radial] Respiratory Rate Respiratory Effort / Characteristics Respiratory Depth Respiratory Pattern Blood Pressure Blood Pressure [Right Arm] Blood Pressure Mean Blood Pressure Mean [Right Arm] Blood Pressure Position [Right Arm] Pulse Oximetry 93 Oxygen Delivery Method Sepsis Recent Fever Within 48 Hours Sepsis New/Unexplained Change in Mental Status Sepsis Action Taken by Nursing Laboratory Data 08/29/24 05:45 08/29/24 05:45 Lab Results 08/29/24 08/29/24 Range/Units 05:45 06:15 WBC 9.83 (4.8-10.8) K/ul RBC 3.96 L (4.20-5.40) M/uL Hgb 11.4 L (12.0-16.0) g/dl Hct 34.9 L (37.0-47.0) % MCV 88.1 (80.0-100.0) fL MCH 28.8 (25.0-34.0) pg MCHC 32.7 (32.0-36.0) g/dL RDW Std Deviation 40.7 (36.4-46.3) fL RDW Coeff of Airam 12.6 (11.5-14.5) % Plt Count 202 (130-400) K/uL MPV 10.3 (9.4-12.4) fL Immature Gran % (Auto) 0.4 % Neut % (Auto) 66.2 % Lymph % (Auto) 22.7 % [place] % (Auto) 10.1 % Eos % (Auto) 0.4 % Baso % (Auto) 0.2 % Neut # (Auto) 6.51 H (1.40-6.50) K/uL Lymph # (Auto) 2.23 (1.20-3.40) K/uL [place] # (Auto) 0.99 H (0.11-0.59) K/uL Eos # (Auto) 0.04 (0.00-0.50) K/uL Baso # (Auto) 0.02 (0.00-0.20) K/uL Immature Gran # (Auto) 0.04 (0.01-0.20) K/uL Sodium 138 (136-145) mmol/L Potassium 3.6 (3.5-5.1) mmol/L Chloride 103 (98-107) mmol/L Carbon Dioxide 27 (21-32) mmol/L Anion Gap 8 (3-11) BUN 9 (6-23) mg/dl Creatinine 0.62 (0.6-1.2) mg/dl Est Cr Clr Drug Dosing Not Reportable eGFR 91.66 BUN/Creatinine Ratio 14.5 (10-20) Glucose 113 H (70-99(Fasting)) mg/dl Calcium 8.9 (8.6-10.3) mg/dl Magnesium 1.8 (1.7-2.4) mg/dl Urine Color Dark Yellow Urine Appearance Clear (Clear) Urine pH 7.5 (4.5-7.5) Ur Specific [place] 1.020 (1.000-1.030) Urine Protein Trace H (Negative) Urine Glucose (UA) Negative (Negative) Urine Ketones 1+ H (Negative) Urine Blood Negative (Negative) Urine Nitrite Negative (Negative) Urine Bilirubin 1+ H (Negative) Urine Urobilinogen Positive H (Negative) Ur Leukocyte Esterase Trace H (Negative) Urine WBC (Auto) 0-5 (0-5) /hpf Urine RBC (Auto) 3-5 H (0-2) /hpf U Hyaline Cast (Auto) 3-5 H (0-2) /lpf U Epithel Cells (Auto) 0-2 (0-2) /hpf Urine Bacteria (Auto) None Seen (None Seen) Administered Medications Citalopram Hydrobromide (Citalopram 40 Mg Tab) 40 mg PO HS ROBIN Stop: 09/28/24 20:59 Last Admin: 08/29/24 20:10 Dose: 40 mg Documented By: CELIA Docusate Sodium (Docusate Sodium 100 Mg Cap) 100 mg PO BID [facility] Stop: 09/28/24 11:14 Last Admin: 08/29/24 20:10 Dose: 100 mg Documented By: [email or web address] Admin: 08/29/24 12:06 Dose: 100 mg Documented By: MAEGAN Glycerin (Glycerin Adult 12 Supp/Box Supp) 1 supp [place] DAILY PRN PRN Reason: Constipation Stop: 09/28/24 14:31 Last Admin: 08/29/24 15:00 Dose: 1 supp Documented By: CS Hydromorphone HCl (Hydromorphone Inj 0.5 Mg/0.5 Ml Syr) 0.25 mg IV Q6H PRN PRN Reason: Severe Pain (Scale 7, 8, 9,10) Stop: 09/12/24 11:09 Last Admin: 08/29/24 14:32 Dose: 0.25 mg Documented By: CS Ceftriaxone Sodium (Rocephin) 2,000 mg in 50 mls @ 100 mls/hr IV Q24H [facility] Stop: 09/08/24 08:59 Last Infusion: 08/29/24 10:26 Dose: Infused Documented By: Admin: 08/29/24 09:46 Dose: 100 mls/hr Documented By: CS Ketorolac Tromethamine (Ketorolac Tromethamine 15 Mg/Ml Vial) 15 mg IV Q6H PRN PRN Reason: Mild-Mod Pain (Scale 1-6) Stop: 09/03/24 11:08 Last Admin: 08/29/24 17:34 Dose: 15 mg Documented By: CS Lorazepam (Lorazepam 1 Mg Tab) 1 mg PO BID PRN PRN Reason: Anxiety Stop: 09/28/24 11:24 Last Admin: 08/29/24 18:19 Dose: 1 mg Documented By: CS Discontinued Medications Hydromorphone HCl (Hydromorphone Inj 0.5 Mg/0.5 Ml Syr) 0.5 mg IV NOW STA Stop: 08/29/24 05:39 Last Admin: 08/29/24 05:53 Dose: 0.5 mg Documented By: PJP Hydromorphone HCl (Hydromorphone Inj 0.5 Mg/0.5 Ml Syr) 0.5 mg IV NOW STA Stop: 08/29/24 06:26 Last Admin: 08/29/24 06:49 Dose: 0.5 mg Documented By: PJP Ketorolac Tromethamine (Ketorolac Tromethamine 15 Mg/Ml Vial) 10 mg IV NOW STA Stop: 08/29/24 06:57 Last Admin: 08/29/24 07:16 Dose: 10 mg Documented By: MR Discharge Plan Visit Data Chief Complaint: Back Injury/Pain Stated Complaint: PAIN FROM SURGERY, CATH PROBLEMS ED Provider: Justen Mednosa Discharge Problem: Intractable back pain, S/P spinal surgery Patient Disposition: Admitted As Inpatient Discharge Instructions Interventions: ED Discharge Assessment Last Done: 08/29/24 09:13
[2024-08-29] MEDS: HYDROmorphone INJ 0.5 MG/0.5 ML SYR IV STA ×2 (05:53→06:49)
[2024-08-29 06:03] LABS: Basophils # (auto) 0.02 K/uL (0.00-0.20); Basophils % (auto) 0.2 %; Eosinophils # (auto) 0.04 K/uL (0.00-0.50); Eosinophils % (auto) 0.4 %; Hematocrit (blood only) 34.9 % (37.0-47.0); Hemoglobin 11.4 g/dl (12.0-16.0); Immature Granulocytes # (auto) 0.04 K/uL (0.01-0.20); Immature Granulocytes % (auto) 0.4 %; Lymphocytes # (auto) 2.23 K/uL (1.20-3.40); Lymphocytes % (auto) 22.7 %; Mean Corpuscular Hemoglobin 28.8 pg (25.0-34.0); Mean Corpuscular Hgb Conc 32.7 g/dL (32.0-36.0); Mean Corpuscular Volume 88.1 fL (80.0-100.0); Mean Platelet Volume 10.3 fL (9.4-12.4); Monocytes # (auto) 0.99 K/uL (0.11-0.59); Monocytes % (auto) 10.1 %; Neutrophils # (auto) 6.51 K/uL (1.40-6.50); Neutrophils % (auto) 66.2 %; Platelet Count 202 K/uL (130-400); RDW Coefficient of Variation 12.6 % (11.5-14.5); RDW Standard Deviation 40.7 fL (36.4-46.3); Red Blood Count 3.96 M/uL (4.20-5.40); White Blood Count 9.83 K/ul (4.8-10.8)
[2024-08-29 06:19] LABS: Anion Gap 8 (3-11); BUN Creatinine Ratio 14.5 (10-20); Blood Urea Nitrogen 9 mg/dl (6-23); Calcium 8.9 mg/dl (8.6-10.3); Carbon Dioxide 27 mmol/L (21-32); Chloride 103 mmol/L (98-107); Glucose 113 mg/dl (70-99(Fasting)); Magnesium 1.8 mg/dl (1.7-2.4); Potassium 3.6 mmol/L (3.5-5.1); Sodium 138 mmol/L (136-145)
--- NOTE | 2024-08-29 06:47 | CT Scan Report ---
CT OF THE LUMBAR SPINE CLINICAL HISTORY: low back pain, s/p surgery 1 wk, fall yesterday COMPARISON STUDY: Lumbar spine MRI November 02, 2022. Fluoroscopic images of the lumbar spine Octobe r 2023. TECHNIQUE: Helical axial images of the lumbar spine were obtained. Sagittal and coronal reconstruct ions were viewed. Automated exposure control was utilized for the study. A dose lowering technique was utilized adhering to the principles of ALARA. FINDINGS: For purposes of numbering on this exam, the L5-S1 disc space is assigned to axial image 292 of 324. There are postoperative findings consistent with L4-L5 discectomy, decompression and bilater al pedicle screw fusion. The hardware is intact. There are no unexpected radiopaque foreign bodies. A s expected, there is fluid and trace gas within the operative bed, including a 6.6 x 3.2 x 3.1 cm sub cutaneous operative bed fluid collection. The central canal and neural foramen are suboptimally asses sed given artifact from the hardware and CT technique. There are no lumbar spine fractures. There is no osseous lesions. Disc bulge at the L2-L3 level is again noted. This was shown on previous MRI. IMPRESSION: 1. No acute lumbar spine fracture or subluxation. 2. Status post L4-L5 decompression and fusion. Hardware intact. Fluid and trace gas within the operat mata bed, as expected. 6.6 x 3.2 x 3.1 cm subcutaneous operative bed fluid collection favors a seroma. Suboptimal evaluation of central canal and neural foramen given CT technique and artifact from the h ardware. ACT 112: Negative or not required by law. Electronically signed by: Manuel Moreno M.D. 08/29/2024 6:45 AM
[2024-08-29 06:48] LABS: Appearance Urine Clear (Clear); Bacteria Urine Automated None Seen (None Seen); Bilirubin Urine 1+ (Negative); Blood Urine Negative (Negative); Color Urine Dark Yellow; Epithelial Cell Urine Auto 0-2 /hpf (0-2); Glucose Urine UA Negative (Negative); Ketones Urine 1+ (Negative); Leukocyte Esterase Urine Trace (Negative); Nitrite Urine Negative (Negative); Protein Urine Trace (Negative); Urobilinogen Urine Positive (Negative); WBC Urine Automated 0-5 /hpf (0-5); pH Urine 7.5 (4.5-7.5)
[2024-08-29] MEDS: KETOROLAC TROMETHAMINE 15 MG/ML VIAL IV STA (07:16)
--- NOTE | 2024-08-29 07:54 | History & Physical Report ---
Date of Service August 29, 2024 Assessment & Plan (1) Intractable back pain: Plan Pt is a 78-year-old female with PMHx significant for revision decompression, excision of epidural mass and fusion L4-L5 by Dr Evans on 08/23/24, HLD, GERD, depression, OA, spinal stenosis who presents with concern for intractable back pain once more and inability to care for self at home. Per patient and , she has been having intractable back pain not currently relieved with her home pain medication regimen. There was some concern the day prior to admission that she had taken too many of her pain medications at once. She was seen in the emergency room for this and discharged home in stable condition. However states that she has been having persistent back pain and frequent falls at home. states that he is unable to care for her postop. Requesting possible rehab stay. Patient also noting urinary incontinence and itchy rash in the lower back area related to her previous dressing. Intractable back pain Status post revision decompression, excision of epidural mass, lumbar fusion L4- L5 by Dr. Evans on 08/23/2024 patient presenting with intractable back pain Repeat CT lumbar spine noting no acute fractures, hardware intact and possible seroma measuring 6.6 x 3.2 x 3.1 cm Pain control with IV Toradol as needed for mild to moderate pain, IV Dilaudid for severe pain. Given patient's elevated liver enzymes will defer on use of Tylenol at this time. orthopedics consult PT/OT- will likely need rehab placement Continue to monitor Complicated urinary tract infection UA suggestive of infection Urine culture pending Continue with IV Rocephin daily, narrow based on culture results Rash Contact dermatitis patient noted to have rash in distribution of previous bandage As needed hydrocortisone ordered Consider p.o. steroid if rash spreading/worsening consider home Benadryl as well Elevated liver enzymes Liver enzymes elevated Continue to trend Avoid hepatotoxic medications such as Tylenol and home statin at this time Consider liver ultrasound if worsening continue other home medications as ordered Diet: Heart healthy DVT prophylaxis: SCDs in setting of noted seroma on CT Dispo: Admit to [facility] History of Present Illness Chief Complaint: back pain Primary Care Provider: Amarjit Mendez MD Pt is a 78-year-old female with PMHx significant for revision decompression, excision of epidural mass and fusion L4-L5 by Dr Evans on 08/23/24, HLD, GERD, depression, OA, spinal stenosis who presents with concern for intractable back pain once more and inability to care for self at home. Per patient and , she has been having intractable back pain not currently relieved with her home pain medication regimen. There was some concern the day prior to admission that she had taken too many of her pain medications at once. states she was very shaky at that time. She was seen in the emergency room for this and discharged home in stable condition. However states that she has been having persistent back pain and frequent falls at home. states that he is unable to care for her postop. Requesting possible rehab stay. Patient also noting urinary incontinence and itchy rash in the lower back area related to her previous dressing. Allergies Allergy/AdvReac Type Severity Reaction Status Date / Time oxycodone Allergy Urticaria Verified 08/29/24 08:17 Home Medications Medication Instructions Recorded Confirmed Type diphenhydramine HCl 25 mg capsule 25 mg PO UD PRN ALLERGIES 05/22/19 08/29/24 History (Benadryl) pantoprazole 40 mg tablet,delayed 40 mg PO QAM 05/22/19 08/29/24 History release citalopram 40 mg tablet 40 mg PO HS 09/17/19 08/29/24 History atorvastatin 10 mg tablet 10 mg PO HS 03/08/21 08/29/24 History trazodone 100 mg tablet 100 mg PO HS PRN Sleep 07/01/21 08/29/24 History hydrocodone 5 mg-acetaminophen 325 1 tab PO Q6H PRN pain #30 tabs 08/23/24 08/29/24 Rx mg tablet lorazepam 1 mg tablet 1 mg PO BID PRN Anxiety 08/23/24 08/29/24 History tramadol 50 mg tablet 50 mg PO Q6H PRN pain, moderate 08/23/24 08/29/24 Rx #30 tabs Past Med/Surg History Problem List (Updated 08/29/24 @ 11:22 by Miranda Jaramillo MD) Intractable back pain Anxiety about health (Acute) Medication adverse effect (Acute) Anxiety and depression GERD (gastroesophageal reflux disease) Hyperlipidemia S/P spinal surgery Neurogenic claudication due to lumbar spinal stenosis Arthritis of knee, left Myelopathy concurrent with and due to spinal stenosis of cervical region Encounter for pre-operative examination Environmental allergies Pollen Medical History Lactose intolerance Occasional cough Chronic, dry- at baseline, s/p multiple unremarkable CXRs Trouble getting to sleep Barretts esophagus History of migraine headaches Neuropathy left foot Anxiety Umbilical hernia Present Spinal stenosis Fibromyalgia Osteoarthritis Temporomandibular joint disorder Hx clicking, no locking Surgical History History of total left knee replacement (TKR) Left TKA (03/31/21): SAB at L3-4 + regional at [facility] History of back surgery (2022) [facility] History of breast biopsy "Negative" H/O bilateral breast reduction surgery S/P trigger finger release B/L hands History of cataract surgery R/L Hx of fusion of cervical spine C4-6 History of laminectomy Lumbar History of esophagogastroduodenoscopy (EGD) History of colonoscopy [place] teeth removed History of nasal septoplasty S/P arthroscopic partial lateral meniscectomy Left Family History Other No significant family history Social History Smoking Status: Never smoker Second Hand Exposure: No; Do You Dip or Chew Tobacco: No; Hx Alcohol Use: No Hx Substance Use: No Preferred Language: Arabic Communication Ability: Effective Paper Twister Required: No Beliefs That Will Affect Care: None marital status: Current Living Situation: Spouse Other Information That Helps Us Care for You: No Feels Safe at Home: Yes Assistive Devices: Walker Review of Systems Review of Systems: All systems reviewed & are unremarkable except as noted in Subjective Physical Exam Physical Exam: General: Alert, No acute distress Skin: rash on back in distribution of prior dressing Psych: Appropriate mood and affect Neuro: hard of hearing HEENT: NC/AT CV: RRR Resp: Breath sounds clear bilaterally, no increased effort of breathing. Abdomen: Soft, nontender Extremities: No edema in lower extremities bilaterally. Results & Data Results & Data Vital Signs (Past 12 Hours) Vital Signs Temp Pulse Pulse Resp BP BP Pulse Ox 08/29/24 07:33 84 93 08/29/24 07:30 152/90 H 08/29/24 07:15 94 H 16 94 08/29/24 07:00 169/100 H 08/29/24 07:00 169/100 H 08/29/24 06:57 98 H 19 93 08/29/24 06:45 86 20 180/102 H 95 08/29/24 06:33 90 19 93 08/29/24 06:30 180/102 H 08/29/24 06:30 180/102 H 08/29/24 06:05 193/99 H 08/29/24 05:25 36.8 C 107 H 20 194/96 H 98 O2 Del Method 08/29/24 07:33 08/29/24 07:30 08/29/24 07:15 08/29/24 07:00 08/29/24 07:00 08/29/24 06:57 08/29/24 06:45 Room Air 08/29/24 06:33 08/29/24 06:30 08/29/24 06:30 08/29/24 06:05 08/29/24 05:25 Room Air Diagnostic Findings Lumbar Spine CT 08/29/24 05:38 CT OF THE LUMBAR SPINE CLINICAL HISTORY: low back pain, s/p surgery 1 wk, fall yesterday COMPARISON STUDY: Lumbar spine MRI November 02, 2022. Fluoroscopic images of the lumbar spine August 23, 2024. TECHNIQUE: Helical axial images of the lumbar spine were obtained. Sagittal and coronal reconstructions were viewed. Automated exposure control was utilized for the study. A dose lowering technique was utilized adhering to the principles of ALARA. FINDINGS: For purposes of numbering on this exam, the L5-S1 disc space is assigned to axial image 292 of 324. There are postoperative findings consistent with L4-L5 discectomy, decompression and bilateral pedicle screw fusion. The hardware is intact. There are no unexpected radiopaque foreign bodies. As expected, there is fluid and trace gas within the operative bed, including a 6.6 x 3.2 x 3.1 cm subcutaneous operative bed fluid collection. The central canal and neural foramen are suboptimally assessed given artifact from the hardware and CT technique. There are no lumbar spine fractures. There is no osseous les ions. Disc bulge at the L2-L3 level is again noted. This was shown on previous MRI. IMPRESSION: 1. No acute lumbar spine fracture or subluxation. 2. Status post L4-L5 decompression and fusion. Hardware intact. Fluid and trace gas within the operative bed, as expected. 6.6 x 3.2 x 3.1 cm subcutaneous operative bed fluid collection favors a seroma. Suboptimal evaluation of central canal and neural foramen given CT technique and artifact from the hardware. ACT 112: Negative or not required by law. Electronically signed by: Manuel Moreno M.D. 08/29/2024 6:45 AM
--- NOTE | 2024-08-29 08:42 | Orthopedic Consultation ---
Date of Consultation August 29, 2024 Assessment & Plan (1) S/P spinal surgery: CAT scan lumbar spine demonstrates instrumentation be in place and appropriate alignment. There is no evidence of fracture or hardware migration. There is a small seroma subcutaneously. This would be expected postoperatively. Plan at this point from orthopedic standpoint I would continue with pain management and physical therapy during her hospital stay. There is some concerns regarding a UTI. Suspect she will be able for discharge home in the next few days. History of Present Illness Reason for Consultation: Patient struggling with this postoperative back pain and has had several falls. History of Present Illness This is a 78-year-old female well-known to me status post lumbar decompression fusion. She had done well postoperatively. Unfortunately upon discharge home she struggled with pain control and has had a few falls. This morning she is feeling better after medication including Toradol. She denies any numbness or tingling lower extremities. Back pain is her major issue. Allergies Allergy/AdvReac Type Severity Reaction Status Date / Time oxycodone Allergy Urticaria Verified 08/29/24 08:17 Home Medications Medication Instructions Recorded Confirmed Type diphenhydramine HCl 25 mg capsule 25 mg PO UD PRN ALLERGIES 05/22/19 08/29/24 History (Benadryl) pantoprazole 40 mg tablet,delayed 40 mg PO QAM 05/22/19 08/29/24 History release citalopram 40 mg tablet 40 mg PO HS 09/17/19 08/29/24 History atorvastatin 10 mg tablet 10 mg PO HS 03/08/21 08/29/24 History trazodone 100 mg tablet 100 mg PO HS PRN Sleep 07/01/21 08/29/24 History hydrocodone 5 mg-acetaminophen 325 1 tab PO Q6H PRN pain #30 tabs 08/23/24 08/29/24 Rx mg tablet lorazepam 1 mg tablet 1 mg PO BID PRN Anxiety 08/23/24 08/29/24 History tramadol 50 mg tablet 50 mg PO Q6H PRN pain, moderate 08/23/24 08/29/24 Rx #30 tabs Patient History Medical History Lactose intolerance Occasional cough Chronic, dry- at baseline, s/p multiple unremarkable CXRs Trouble getting to sleep Barretts esophagus History of migraine headaches Neuropathy left foot Anxiety Umbilical hernia Present Spinal stenosis Fibromyalgia Osteoarthritis Temporomandibular joint disorder Hx clicking, no locking Surgical History History of total left knee replacement (TKR) Left TKA (03/31/21): SAB at L3-4 + regional at [facility] History of back surgery (2022) [facility] History of breast biopsy "Negative" H/O bilateral breast reduction surgery S/P trigger finger release B/L hands History of cataract surgery R/L Hx of fusion of cervical spine C4-6 History of laminectomy Lumbar History of esophagogastroduodenoscopy (EGD) History of colonoscopy [place] teeth removed History of nasal septoplasty S/P arthroscopic partial lateral meniscectomy Left Family History Other No significant family history Social History Smoking Status: Never smoker Second Hand Exposure: No; Do You Dip or Chew Tobacco: No; Hx Alcohol Use: No Hx Substance Use: No Preferred Language: Malaysian Communication Ability: Effective Rabbler Required: No Beliefs That Will Affect Care: None marital status: Current Living Situation: Spouse Feels Safe at Home: Yes Assistive Devices: Walker Physical Exam Physical Exam: On exam she is neurologically intact. The incision is clean dry and intact. There are some erythema around the edges where the tape was on her skin. Does not appear to be infected. Results & Data Vital Signs (Past 12 Hours) Vital Signs Temp Pulse Pulse Resp BP BP Pulse Ox 08/29/24 08:06 90 13 96 08/29/24 08:00 134/84 08/29/24 07:45 80 93 08/29/24 07:33 84 93 08/29/24 07:30 152/90 H 08/29/24 07:15 94 H 16 94 08/29/24 07:00 169/100 H 08/29/24 07:00 169/100 H 08/29/24 06:57 98 H 19 93 08/29/24 06:45 86 20 180/102 H 95 08/29/24 06:33 90 19 93 08/29/24 06:30 180/102 H 08/29/24 06:30 180/102 H 08/29/24 06:05 193/99 H 08/29/24 05:25 36.8 C 107 H 20 194/96 H 98 O2 Del Method 08/29/24 08:06 08/29/24 08:00 08/29/24 07:45 08/29/24 07:33 08/29/24 07:30 08/29/24 07:15 08/29/24 07:00 08/29/24 07:00 08/29/24 06:57 08/29/24 06:45 Room Air 08/29/24 06:33 08/29/24 06:30 08/29/24 06:30 08/29/24 06:05 08/29/24 05:25 Room Air
[2024-08-29] MEDS ORDERED: HYDROCORTISONE 2.5% CR 30 GM TUBE EXT PRN (08:47)
[2024-08-29] MEDS: cefTRIAXone SODIUM 2,000 MG/50 ML BAG IV SCH (09:46)
[2024-08-29] MEDS ORDERED: ONDANSETRON INJ 2 MG/ML 2 ML VIAL IV PRN (11:11)
[2024-08-29] MEDS: DOCUSATE SODIUM 100 MG CAP PO SCH (12:06)
[2024-08-29] MEDS: HYDROmorphone INJ 0.5 MG/0.5 ML SYR IV PRN (14:32)
[2024-08-29] MEDS: GLYCERIN ADULT 12 SUPP/BOX SUPP PR PRN (15:00)
[2024-08-29] MEDS: KETOROLAC TROMETHAMINE 15 MG/ML VIAL IV PRN (17:34)
[2024-08-29] MEDS: LORazepam 1 MG TAB PO PRN (18:19)
[2024-08-29] MEDS: CITALOPRAM 40 MG TAB PO SCH (20:10)
[2024-08-29] MEDS: traZODone HCL 100 MG TAB PO PRN (23:51)
[2024-08-30 07:38] VITALS: PULSE 73; RESP 18; TEMP 98.1; O2SAT 96
[2024-08-30 07:43] LABS: Hematocrit (blood only) 32.7 % (37.0-47.0); Hemoglobin 10.7 g/dl (12.0-16.0); Mean Corpuscular Hemoglobin 28.8 pg (25.0-34.0); Mean Corpuscular Hgb Conc 32.7 g/dL (32.0-36.0); Mean Corpuscular Volume 88.1 fL (80.0-100.0); Mean Platelet Volume 10.5 fL (9.4-12.4); Platelet Count 231 K/uL (130-400); RDW Coefficient of Variation 12.5 % (11.5-14.5); RDW Standard Deviation 40.5 fL (36.4-46.3); Red Blood Count 3.71 M/uL (4.20-5.40); White Blood Count 8.76 K/ul (4.8-10.8)
[2024-08-30 07:49] LABS: Albumin Globulin Ratio 1.2 (0.9-2); Albumin Level 3.3 gm/dl (3.4-5.0); BUN Creatinine Ratio 18.3 (10-20); Bilirubin,Total 1.1 mg/dl (0.2-1.0); Calcium 8.9 mg/dl (8.6-10.3); Creatinine Clr Calc Pharmacy 70.7 ml/min; Globulin 2.8 gm/dl (2.5-4.0); Phosphorus 3.2 mg/dl (2.5-4.9); Total Protein 6.1 gm/dl (6.0-8.3)
[2024-08-30] MEDS: POLYETHYLENE (MIRALAX) 17 GM PACK PO PRN (08:11)
[2024-08-30] MEDS: PANTOprazole 40 MG TAB PO SCH (08:12)
--- NOTE | 2024-08-30 09:26 | Orthopedic Progress Note ---
Date of Service August 30, 2024 Assessment & Plan (1) Intractable back pain: Plan: Patient is doing better at this point. His pain is well-controlled. I have discussed the patient's abilities to go home and she believes that she would do okay at home at this point as her pain is better controlled. From orthopedic standpoint she can be discharged home I believe they are still awaiting the results of her urine culture at this point. Will defer to medicine whether or not she can go today. Admission and Anticipated Discharge Date Admission Date: August 29, 2024 Subjective Patient seen bedside in room 354. She states that she is doing pretty well today her pain has been controlled. She has been up and walking with therapy a nd doing much better. She is not having azael radicular complaints. She denies any other numbness, tingling, or paresthesias. Physical Exam Physical Exam: On exam she is alert and oriented. She has full strength in both of her lower extremities. Her abdomen soft nontender calves are supple and nontender. Cardiovascular exam reveals no gross abnormalities. Results & Data Vital Signs (Past 12 Hours) Vital Signs Temp Pulse Resp BP Pulse Ox O2 Del Method 08/30/24 07:37 36.7 C 73 18 167/86 H 96 Room Air 08/29/24 22:29 Room Air
--- NOTE | 2024-08-30 13:45 | Discharge Summary ---
Discharge Summary Date of Service August 30, 2024 Principal Dx & Hospital Course #1 = Principal Diagnosis (1) Intractable back pain: Plan Pt is a 78-year-old female with PMHx significant for revision decompression, excision of epidural mass and fusion L4-L5 by Dr Evans on 08/23/24, HLD, GERD, depression, OA, spinal stenosis who presents with concern for intractable back pain once more and inability to care for self at home. Per patient and , she has been having intractable back pain not currently relieved with her home pain medication regimen. There was some concern the day prior to admission that she had taken too many of her pain medications at once. She was seen in the emergency room for this and discharged home in stable condition. However states that she has been having persistent back pain and frequent falls at home. states that he is unable to care for her postop. Requesting possible rehab stay. Patient also noting urinary incontinence and itchy rash in the lower back area related to her previous dressing. Intractable back pain Status post revision decompression, excision of epidural mass, lumbar fusion L4- L5 by Dr. Evans on 08/23/2024 patient presenting with intractable back pain Repeat CT lumbar spine noting no acute fractures, hardware intact and possible seroma measuring 6.6 x 3.2 x 3.1 cm Pain control with IV Toradol as needed for mild to moderate pain, IV Dilaudid for severe pain. Given patient's elevated liver enzymes will defer on use of Tylenol at this time. Orthopedics consulted, appreciate recs. Noted/stated the following: "CAT scan lumbar spine demonstrates instrumentation be in place and appropriate alignment. There is no evidence of fracture or hardware migration. There is a small seroma subcutaneously. This would be expected postoperatively. Plan at this point from orthopedic standpoint I would continue with pain management and physical therapy during her hospital stay. There is some concerns regarding a UTI. Suspect she will be able for discharge home in the next few days." PT/OT recommending patient stable for discharge home with support system Patient discharged home with renewed prescription for tramadol for severe pain, advised to discontinue use of [place] with hydrocodone/ acetaminophen given elevated liver enzymes (see below). Close PCP and orthospine follow-up after discharge Complicated urinary tract infection UA suggestive of infection Urine culture with no significant growth to date Treated with IV Rocephin, and discharged home with 5 more days of p.o. cefdinir Rash Contact dermatitis patient noted to have rash in distribution of previous bandage As needed hydrocortisone ordered Consider p.o. steroid if rash spreading/worsening Continue home Benadryl as well PCP follow up Elevated liver enzymes Liver enzymes elevated Continue to trend Avoid hepatotoxic medications such as Tylenol and home statin at this time Consider liver ultrasound if worsening PCP follow up Notes For Next Care Provider please ensure close follow-up of elevated liver enzymes please ensure follow-up with orthospine Medication Changes From Visit Cefdinir 300 mg twice daily for 5 more days Tramadol 50 mg every 6 hours renewed for an additional 7 days Advised to discontinue use of hydrocodone/acetaminophen in setting of elevated liver enzymes Holding home statin until PCP follow-up Admission HPI Per Admitting Provider Pt is a 78-year-old female with PMHx significant for revision decompression, exc ision of epidural mass and fusion L4-L5 by Dr Evans on 08/23/24, HLD, GERD, depression, OA, spinal stenosis who presents with concern for intractable back pain once more and inability to care for self at home. Per patient and , she has been having intractable back pain not currently relieved with her home pain medication regimen. There was some concern the day prior to admission that she had taken too many of her pain medications at once. states she was very shaky at that time. She was seen in the emergency room for this and discharged home in stable condition. However states that she has been having persistent back pain and frequent falls at home. states that he is unable to care for her postop. Requesting possible rehab stay. Patient also noting urinary incontinence and itchy rash in the lower back area related to her previous dressing. Admission Exam Per Admitting Provider General: Alert, No acute distress Skin: rash on back in distribution of prior dressing Psych: Appropriate mood and affect Neuro: hard of hearing HEENT: NC/AT CV: RRR Resp: Breath sounds clear bilaterally, no increased effort of breathing. Abdomen: Soft, nontender Extremities: No edema in lower extremities bilaterally. Discharge Exam General: Alert, No acute distress Psych: Appropriate mood and affect Neuro: hard of hearing HEENT: NC/AT CV: RRR Resp: Breath sounds clear bilaterally, no increased effort of breathing. Abdomen: Soft, nontender Extremities: No edema in lower extremities bilaterally. Updated Medication List Medication Instructions Recorded Confirmed Type diphenhydramine HCl 25 mg capsule 25 mg PO UD PRN ALLERGIES 05/22/19 08/29/24 History (Benadryl) pantoprazole 40 mg tablet,delayed 40 mg PO QAM 05/22/19 08/29/24 History release citalopram 40 mg tablet 40 mg PO HS 09/17/19 08/29/24 History atorvastatin 10 mg tablet 10 mg PO HS 03/08/21 08/29/24 History trazodone 100 mg tablet 100 mg PO HS PRN Sleep 07/01/21 08/29/24 History lorazepam 1 mg tablet 1 mg PO BID PRN Anxiety 08/23/24 08/29/24 History cefdinir 300 mg capsule 300 mg PO BID #10 caps 08/30/24 Rx tramadol 50 mg tablet 50 mg PO Q6H PRN pain, moderate 08/30/24 Rx #30 tabs Hospital Stay Data Consultations 08/29/24 07:30 ED Decision to Admit Stat 08/29/24 07:48 Consult Orthopedic Spine Surgery Routine Diagnostic Imagining Performed 08/29/24 05:38 CT lumbar spine wo con Stat Lumbar Spine CT 08/29/24 05:38 CT OF THE LUMBAR SPINE CLINICAL HISTORY: low back pain, s/p surgery 1 wk, fall yesterday COMPARISON STUDY: Lumbar spine MRI November 02, 2022. Fluoroscopic images of the lumbar spine August 23, 2024. TECHNIQUE: Helical axial images of the lumbar spine were obtained. Sagittal and coronal reconstructions were viewed. Automated exposure control was utilized for the study. A dose lowering technique was utilized adhering to the principles of ALARA. FINDINGS: For purposes of numbering on this exam, the L5-S1 disc space is assigned to axial image 292 of 324. There are postoperative findings consistent with L4-L5 discectomy, decompression and bilateral pedicle screw fusion. The hardware is intact. There are no unexpected radiopaque foreign bodies. As expected, there is fluid and trace gas within the operative bed, including a 6.6 x 3.2 x 3.1 cm subcutaneous operative bed fluid collection. The central canal and neural foramen are suboptimally assessed given artifact from the hardware and CT technique. There are no lumbar spine fractures. There is no osseous lesions. Disc bulge at the L2-L3 level is again noted. This was shown on previ ous MRI. IMPRESSION: 1. No acute lumbar spine fracture or subluxation. 2. Status post L4-L5 decompression and fusion. Hardware intact. Fluid and trace gas within the operative bed, as expected. 6.6 x 3.2 x 3.1 cm subcutaneous operative bed fluid collection favors a seroma. Suboptimal evaluation of central canal and neural foramen given CT technique and artifact from the hardware. ACT 112: Negative or not required by law. Electronically signed by: Manuel Moreno M.D. 08/29/2024 6:45 AM Discharge Instructions Given to Patient (Per Discharging Provider) Cristal You are admitted and treated for intractable back pain. Your symptoms improved. Please continue with use of previously prescribed tramadol for severe pain at home. A prescription for that has been renewed for you. Please do not use previously prescribed hydrocodone/acetaminophen for pain at home as the acetaminophen (or tylenol in it) has contributed to your elevated liver enzymes. The liver enzymes are currently improving but you will need to follow-up with your primary care provider for continued monitoring. You also were treated for a urinary tract infection. Please continue with the prescribed oral antibiotic cefdinir 300 mg twice a day for an additional 5 days. You are also seen by physical therapy who recommended discharge home with your support system. Please keep close follow up with your primary care provider after discharge. Please do not hesitate to come back to the emergency room if your symptoms worsen or return. It was a pleasure taking care of you while you were here. Total Time Total Time Spent Total Time Spent (In Minutes): 65
[2024-08-30 15:48] VITALS: BP 148/84
== END 2024-08-30 16:40 | disposition home or self-care (01) | DRG 920 ==
LOC: ED 05:22 → 3W 07:47 → INTOOBSV 07:47 → 3W 09:13

== ENCOUNTER 2025-10-07 22:17 | Inpatient (IN) ==
--- NOTE | 2025-10-07 22:37 | Emergency Department Note ---
Impression & Plan Hypotension, Vomiting, Rigors, Elevated lactic acid level, Acute UTI ED Provider Note NAME: CASSANDRA YORK AGE: 70 SEX: F : 1955 ARRIVES VIA: Walk-In INFORMANT: [Patient] ED PROVIDER(S): [Chuy Gunn MD] CHIEF COMPLAINT: Illness HISTORY OF PRESENT ILLNESS: The patient is a 70-year-old female who has had over 7 hours of symptoms. She has been vomiting and states that she is quite nauseated. Her bilateral hands and feet have some tingling and numbness. She did also note some slight diarrhea but more so, the vomiting is what brought her to the ED. There has been some shakes and chills, no documented fever. She feels weak and dizzy. No chest pain or shortness of breath. No cough. She denies any abdominal pain. No known sick contacts. PMHx/PSHx/Social Hx: See Below PHYSICAL EXAM: GENERAL: Patient is in mild distress. Appears to have rigors. HEENT: No acute trauma, normocephalic atraumatic, mucous membranes moist, no nasal congestion. NECK: No stridor, no adenopathy, no meningismus, trachea is midline. LUNGS: Clear to auscultation bilaterally, no wheeze, no rhonchi, breath sounds equal. HEART: Without murmurs gallops or rubs, regular rate and rhythm. ABDOMEN: Soft, nontender, no peritonitis. EXTREMITIES: No cyanosis, full range of motion of all the joints without pain or difficulty. NEUROLOGIC: Oriented x 3, no acute motor or sensory deficits, no focal weakness. No speech slur or facial droop. SKIN: No jaundice, no diaphoresis. Somewhat pale. DIFFERENTIAL DIAGNOSIS: Dehydration, electrolyte imbalance, AL, bowel obstruction, foodborne or viral illness, bacteremia or sepsis, among others. EMERGENCY DEPARTMENT PROCEDURES: MEDICAL DECISION MAKING: There is no leukocytosis or concerning anemia. There is a normal platelet count. No bandemia. No renal failure. No significant electrolyte abnormality. Lactic acid level is quite high at 4.9, this is consistent with infection and/or dehydration. No worrisome liver enzyme elevation. Patient appeared to be in a euthyroid state. ECG shows a sinus rhythm, no ischemia or dysrhythmia. Cardiac enzyme testing x 1 is not consistent with acute cardiac injury. Chest x-ray does not show free air or pneumonia. There was no CHF. Urinalysis does suggest infection. Abdominal and pelvis CT was ordered and, because of significant reading delays, the result is still pending. On exam, the patient was pale, she appeared to have rigors, she was hypotensive and complaining of nausea. The patient was aggressively managed. She did receive IV Tylenol for pain, she was given IV cefepime as antibiotic coverage. She was given IV Zofran and IV Phenergan for nausea. She received 2 L of IV saline for hydration. This amount of saline should suffice for the sepsis protocol based on 30 cc/kg of IV fluid based on her actual body weight. On reassessment, the patient's blood pressure has improved, she does not require pressor therapy. Repeat lactic acid level testing shows improvement, the lactic acid level is downtrending. On exam, the patient is no shivering. She is no longer vomiting. She feels improved compared to earlier, her color has improved. The patient requires a hospital stay. She presents hypotensive, pale, vomiting. She has a high lactic acid level and thus, sepsis is a true concern. She appears to have a urine infection as the source for her presentation. I did speak with the patient and her , I did speak with case management, the on-call hospitalist was consulted. Prior/Outside records/notes reviewed: None ECG per my interpretation: Indication was vomiting. The ECG shows a normal sinus rhythm with a rate of 84. There is some baseline artifact. There is no ST elevation, no PVCs. The QTc is 458. Continuous Cardiac Monitoring per my interpretation: An order was placed for continuous cardiac monitoring. The monitor shows a rate of 82 with normal sinus rhythm. Imaging/x-ray results per my interpretation: Chest x-ray does not show free air, pneumonia or CHF. Chronic Medical/Social conditions affecting care: None Care/Management discussed with: Case management and the on-call hospitalist. Level of care consideration(s): After review of the information above and other included data: --I believe the patient requires escalation of care to admission Critical Care Note: I have personally spent 48 minutes of critical care time in the direct management of this patient. This includes bedside care, interpretation of diagnostic studies, and testing, discussion with consultants, patient, and family members, and other required patient management activities. This 48 minutes is in excess of all separately billable procedures. DISPOSITION: Admission Past Med/Surg History Problem List Acute UTI (Acute) Elevated lactic acid level (Acute) Rigors (Acute) Vomiting (Acute) Hypotension (Acute) Multiple pulmonary nodules Weakness generalized Weakness Numbness and tingling of foot Trouble getting to sleep Neuropathic pain Dental caries Vertigo Elevated alkaline phosphatase level Hypertensive urgency Dizziness (Acute) Hypertension (Acute) Intractable back pain (Acute) Anxiety and depression GERD (gastroesophageal reflux disease) Hyperlipidemia S/P spinal surgery (Acute) Neurogenic claudication due to lumbar spinal stenosis Arthritis of knee, left Myelopathy concurrent with and due to spinal stenosis of cervical region Encounter for pre-operative examination Environmental allergies Pollen Medical History Lactose intolerance Occasional cough Chronic, dry- at baseline, s/p multiple unremarkable CXRs Barretts esophagus History of migraine headaches Neuropathy left foot Anxiety Umbilical hernia Present Spinal stenosis Fibromyalgia Osteoarthritis Temporomandibular joint disorder Hx clicking, no locking Surgical History History of total left knee replacement (TKR) Left TKA (03/31/21): SAB at [facility] + regional at [facility] History of back surgery (2022) [facility] History of breast biopsy "Negative" H/O bilateral breast reduction surgery S/P trigger finger release B/L hands History of cataract surgery R/L Hx of fusion of cervical spine C4-6 History of laminectomy Lumbar History of esophagogastroduodenoscopy (EGD) History of colonoscopy [place] teeth removed History of nasal septoplasty S/P arthroscopic partial lateral meniscectomy Left Family History Other No significant family history Social History Smoking Status: Never smoker Second Hand Exposure: No; Do You Dip or Chew Tobacco: No; Hx Alcohol Use: No Hx Substance Use: No Preferred Language: [place] Communication Ability: Effective 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 Beliefs That Will Affect Care: None marital status: Current Living Situation: Spouse Feels Safe at Home: Yes Assistive Devices: Cane and Walker Allergies Allergies Allergy/AdvReac Type Severity Reaction Status Date / Time oxycodone Allergy Intermediate ITCHY HIVES Verified 08/12/25 11:22 Home Meds Home Medications Medication Instructions Recorded Confirmed pantoprazole 40 mg tablet,delayed 40 mg PO QAM 05/22/19 08/12/25 release atorvastatin 10 mg tablet 10 mg PO HS 03/08/21 08/12/25 trazodone 100 mg tablet 100 mg PO HS 07/01/21 08/12/25 lorazepam 1 mg tablet 1 mg PO BID PRN Anxiety 08/23/24 08/12/25 naproxen 500 mg tablet 500 mg PO BID PRN Pain 04/17/25 08/12/25 naproxen sodium 220 mg tablet 220 mg PO HS PRN NEEDED 04/17/25 08/12/25 (Aleve) citalopram 10 mg tablet 10 mg PO DAILY PRN 07/01/25 08/12/25 losartan 25 mg tablet 25 mg PO DAILY 07/01/25 08/12/25 Previous Rx's Medication Instructions Recorded meclizine 12.5 mg tablet 12.5 mg PO Q6H PRN dizziness or 04/19/25 vertigo #30 tabs duloxetine 60 mg capsule,delayed 60 mg PO DAILY #90 caps 07/01/25 release Results & Data (ED) Vital Signs Vital Signs - 24 hr 10/07/25 22:24 10/07/25 22:36 10/07/25 22:43 Temperature 36.5 C 36.6 C Temperature Source Temporal Artery Scan Oral Pulse Rate 80 105 H Pulse Rate [Apical] 83 Pulse Rhythm Regular Pulse Strength Normal Respiratory Rate 20 Respiratory Effort / Characteristics Non-Labored Spontaneous Respiratory Depth Normal Respiratory Pattern Regular Blood Pressure 96/73 L Blood Pressure [Right Arm] Blood Pressure Mean 80 Blood Pressure Mean [Right Arm] Pulse Oximetry 98 Oxygen Delivery Method Room Air Sepsis Recent Fever Within 48 Hours No Sepsis New/Unexplained Change in Mental Status N/A Sepsis Action Taken by Nursing No Action Required 10/07/25 23:03 10/08/25 00:30 Temperature Temperature Source Pulse Rate Pulse Rate [Apical] 95 H Pulse Rhythm Pulse Strength Respiratory Rate 18 Respiratory Effort / Characteristics Respiratory Depth Respiratory Pattern Blood Pressure Blood Pressure [Right Arm] 146/74 H Blood Pressure Mean Blood Pressure Mean [Right Arm] 98 Pulse Oximetry 96 92 Oxygen Delivery Method Room Air Room Air Sepsis Recent Fever Within 48 Hours Sepsis New/Unexplained Change in Mental Status Sepsis Action Taken by Detention Medications Current Medication List: was personally reviewed by me Laboratory Data Attestation: I reviewed the patient's lab results. 10/07/25 22:38 10/07/25 22:38 Lab Results 10/07/25 10/08/25 10/08/25 Range/Units 22:38 00:03 00:25 WBC 8.44 (4.8-10.8) K/ul RBC 4.71 (4.20-5.40) M/uL Hgb 13.6 (12.0-16.0) g/dL Hct 41.8 (37.0-47.0) % MCV 88.7 (80.0-100.0) fL MCH 28.9 (25.0-34.0) pg MCHC 32.5 (32.0-36.0) g/dL RDW Std Deviation 41.1 (36.4-46.3) fL RDW Coeff of Airam 12.7 (11.5-14.5) % Plt Count 234 (130-400) K/uL MPV 10.0 (9.4-12.4) fL Immature Gran % (Auto) 0.4 % Neut % (Auto) 65.5 % Lymph % (Auto) 23.1 % Greene % (Auto) 8.1 % Eos % (Auto) 2.4 % Baso % (Auto) 0.5 % Neut # (Auto) 5.54 (1.40-6.50) K/uL Lymph # (Auto) 1.95 (1.20-3.40) K/uL Greene # (Auto) 0.68 H (0.11-0.59) K/uL Eos # (Auto) 0.20 (0.00-0.50) K/uL Baso # (Auto) 0.04 (0.00-0.20) K/uL Immature Gran # (Auto) 0.03 (0.01-0.20) K/uL Sodium 140 (136-145) mmol/L Potassium 3.8 (3.5-5.1) mmol/L Chloride 104 (98-107) mmol/L Carbon Dioxide 22 (21-32) mmol/L Anion Gap 14 H (3-11) BUN 13 (6-23) mg/dl Creatinine 0.93 (0.6-1.2) mg/dl Est Cr Clr Drug Dosing 49.3 ml/min eGFR 66.53 BUN/Creatinine Ratio 14.0 (10-20) Glucose 137 H (70-99(Fasting)) mg/dl Lactate 4.9 H* 2.9 H* (0.4-2.0) mmol/L Calcium 9.7 (8.6-10.3) mg/dl Magnesium 1.9 (1.7-2.4) mg/dl Total Bilirubin 0.7 (0.2-1.0) mg/dl AST 21 (13-39) U/L ALT 25 (7-52) U/L Alkaline Phosphatase 155 H (34-104) U/L Troponin I High Sens 3.3 (0-14) pg/ml Total Protein 7.2 (6.0-8.3) gm/dl Albumin 4.0 (3.4-5.0) gm/dl Globulin 3.2 (2.5-4.0) gm/dl Albumin/Globulin Ratio 1.3 (0.9-2) TSH 2.292 (0.300-4.500) uIu/ml Urine Color Yellow Urine Appearance Turbid A (Clear) Urine pH 6.5 (4.5-7.5) Ur Specific [place] 1.026 (1.000-1.030) Urine Protein 1+ H (Negative) Urine Glucose (UA) Negative (Negative) Urine Ketones Negative (Negative) Urine Blood 1+ H (Negative) Urine Nitrite Negative (Negative) Urine Bilirubin Negative (Negative) Urine Urobilinogen Negative (Negative) Ur Leukocyte Esterase 3+ H (Negative) Urine WBC (Auto) 21-50 H (0-5) /hpf Urine RBC (Auto) 3-5 H (0-2) /hpf U Hyaline Cast (Auto) 11-20 H (0-2) /lpf U Epithel Cells (Auto) >20 H (0-2) /hpf Urine Bacteria (Auto) 3+ H (None Seen) Urine Other See Comment A (None Prsent) Urine Yeast Present A (None Prsent) Urine Comment Administered Medications Discontinued Medications Sodium Chloride (Nss) 500 mls @ 999 mls/hr IV .Q31M ROBIN Stop: 10/07/25 23:00 Last Infusion: 10/08/25 00:18 Dose: Infused Documented By: [id number] Admin: 10/07/25 22:39 Dose: 999 mls/hr Documented By: RICKEY Acetaminophen (Ofirmev) 1,000 mg in 100 mls @ 400 mls/hr IV NOW STA Stop: 10/07/25 22:47 Last Infusion: 10/08/25 00:05 Dose: Infused Documented By: [id number] Admin: 10/07/25 22:41 Dose: 400 mls/hr Documented By: RICKEY Cefepime HCl (Maxipime 2000mg) 2,000 mg in 20 mls @ 5 mls/min IV NOW STA; Protocol Stop: 10/07/25 22:36 Last Admin: 10/07/25 23:10 Dose: 5 mls/min Documented By: [id number] Promethazine HCl (Phenergan) 6.25 mg in 50.25 mls @ 201 mls/hr IV NOW STA Stop: 10/07/25 23:03 Last Infusion: 10/08/25 00:05 Dose: Infused Documented By: [id number] Admin: 10/07/25 23:10 Dose: 201 mls/hr Documented By: [id number] Sodium Chloride (Nss) 1,000 mls @ 999 mls/hr IV .Q1H1M ONE Stop: 10/08/25 00:00 Last Infusion: 10/08/25 00:05 Dose: Infused Documented By: [id number] Admin: 10/07/25 23:11 Dose: 999 mls/hr Documented By: [id number] Sodium Chloride (Nss) 500 mls @ 999 mls/hr IV .Q31M ONE Stop: 10/07/25 23:30 Last Admin: 10/07/25 23:06 Dose: Not Given Documented By: [id number] Ioversol (Optiray 320 100ml) 100 ml IV ONCE ONE Stop: 10/07/25 23:46 Last Admin: 10/07/25 23:45 Dose: 93 ml Documented By: CLAUS Ondansetron HCl (Ondansetron Inj 2 Mg/Ml 2 Ml Vial) 4 mg IV NOW STA Stop: 10/07/25 22:29 Last Admin: 10/07/25 22:40 Dose: 4 mg Documented By: RICKEY Discharge Plan Visit Data Chief Complaint: Illness Stated Complaint: DIZZY, ILLNESS, VOMITING, TOE NUMBNESS, SHAKY ED Provider: Chuy Gunn Discharge Problem: Hypotension, Vomiting, Rigors, Elevated lactic acid level, Acute UTI Patient Disposition: Admitted As Inpatient Condition: Serious Forms Stand Alone Forms: My [facility] Prescriptions Prescriptions: No Action citalopram 10 mg tablet 10 mg PO DAILY PRN Rx Instructions: Take 2 tablets by mouth (20mg) daily x 1 week, then take 1 tablet by mouth (10mg) daily x 1 week losartan 25 mg tablet 25 mg PO DAILY duloxetine 60 mg capsule,delayed release(DR/EC) 60 mg PO DAILY Qty: 90 3RF pantoprazole 40 mg Tablet,Delayed Release (Dr/Ec) 40 mg PO QAM atorvastatin 10 mg Tablet 10 mg PO HS Hold Instructions: until pcp follow up trazodone 100 mg tablet 100 mg PO HS naproxen sodium [Aleve] 220 mg Tablet 220 mg PO HS PRN (Reason: NEEDED) naproxen 500 mg Tablet 500 mg PO BID PRN (Reason: Pain) meclizine 12.5 mg tablet 12.5 mg PO Q6H PRN (Reason: dizziness or vertigo) Qty: 30 0RF Rx Instructions: Take 1 tablet by mouth every 6 hours as needed for symptoms of dizziness or vertigo lorazepam 1 mg tablet 1 mg PO BID PRN (Reason: Anxiety) Referrals Referrals: Amarjit Mendez MD [Primary Care Provider] - Discharge Problem: Hypotension Qualifiers: Hypotension type: unspecified hypotension type Qualified Code(s): I95.9 - Hypotension, unspecified Vomiting Qualifiers: Vomiting type: unspecified Nausea presence: with nausea Qualified Code(s): R 11.2 - Nausea with vomiting, unspecified
[2025-10-07] MEDS: SODIUM CHLORIDE 0.9% 500 ML IV SCH (22:39)
[2025-10-07] MEDS: ONDANSETRON INJ 2 MG/ML 2 ML VIAL IV STA (22:40)
[2025-10-07] MEDS: ACETAMINOPHEN 1,000 MG/100 ML VIAL IV STA (22:41)
[2025-10-07 22:56] LABS: Hematocrit (blood only) 41.8 % (37.0-47.0); Hemoglobin 13.6 g/dL (12.0-16.0); Immature Granulocytes # (auto) 0.03 K/uL (0.01-0.20); Immature Granulocytes % (auto) 0.4 %; Mean Corpuscular Hemoglobin 28.9 pg (25.0-34.0); Mean Corpuscular Volume 88.7 fL (80.0-100.0); Platelet Count 234 K/uL (130-400); RDW Standard Deviation 41.1 fL (36.4-46.3); Red Blood Count 4.71 M/uL (4.20-5.40); White Blood Count 8.44 K/ul (4.8-10.8)
[2025-10-07] MEDS: SODIUM CHLORIDE 0.9% 500 ML IV ONE (23:06)
[2025-10-07] MEDS: CEFEPIME 2000MG 2,000 MG/20 ML SYR IV STA (23:10)
[2025-10-07] MEDS: PROMETHAZINE 6.25 MG/50.25 ML BAG IV STA (23:10)
[2025-10-07] MEDS: SODIUM CHLORIDE 0.9% 1,000 ML IV ONE (23:11)
[2025-10-07 23:14] LABS: Alanine Aminotransferase 25.0 U/L (7-52); Albumin Globulin Ratio 1.3 (0.9-2); Albumin Level 4.0 gm/dl (3.4-5.0); Alkaline Phosphatase 155.0 U/L (34-104); Anion Gap 14.0 (3-11); Bilirubin,Total 0.7 mg/dl (0.2-1.0); Blood Urea Nitrogen 13.0 mg/dl (6-23); Calcium 9.7 mg/dl (8.6-10.3); Carbon Dioxide 22.0 mmol/L (21-32); Chloride 104.0 mmol/L (98-107); Creatinine Clr Calc Pharmacy 49.3 ml/min; Globulin 3.2 gm/dl (2.5-4.0); Glucose 137.0 mg/dl (70-99(Fasting)); Magnesium 1.9 mg/dl (1.7-2.4); Potassium 3.8 mmol/L (3.5-5.1); Sodium 140.0 mmol/L (136-145); Total Protein 7.2 gm/dl (6.0-8.3)
[2025-10-07 23:28] LABS: Thyroid Stimulating Hormone 2.292 uIu/ml (0.300-4.500)
[2025-10-07] MEDS: OPTIRAY 320 100ml IV ONE (23:45)
[2025-10-08 00:37] LABS: Appearance Urine Turbid (Clear); Bacteria Urine Automated 3+ (None Seen); Epithelial Cell Urine Auto >20 /hpf (0-2); Glucose Urine UA Negative (Negative)
[2025-10-08 00:52] LABS: WBC Urine Automated 21-50 /hpf (0-5)
--- NOTE | 2025-10-08 01:00 | History & Physical Report ---
Date of Service October 08, 2025 Assessment & Plan (1) Vomiting: (2) Hypotension: (3) Elevated alkaline phosphatase level: Plan 70-year-old female PMHx HLD, GERD, depression, OA, and spinal stenosis presenting for shaking and vomiting starting the night of arrival. Her evaluation is without gross CBC or CMP abnormalities with exception of hyperglycemia, elevated alkaline phos and elevated lactate which was responsive to fluids. Her imaging is pending official report at the time of admission. #Vomiting/Hypotension Vomiting starting day BEE RANCHER, after eating homemade soup, associated with dizziness; was found to be hypotensive in ED (lowest 96/73) in setting of elevated lactate as well; BP + lactate have been responsive to IVF. She is without abdominal pain at present, no longer having N/V. Low suspicion for stroke at this time, her neurologic exam was WNL, no nystagmus. She has a history of dizziness and takes meclizine for it. She states that this was similar, which is lasting longer. Possibly could blame a UTI however the UA is either contaminated or actually infected, she is not having LUTS. At the time of admission, which is just before scheduled hospital downtime, her CTAP and CXR are pending official read. Per my read, CXR does not appear to have abnormalities and CTAP appears to have slight bladder distention, some stool noted. Admission for vomiting and management of hypotension in the setting of an elevated lactic acid. Suspect dizziness secondary to dehydration. - CBC without leukocytosis/leukopenia, stable H/H; CMP AG 14, glucose 137, alk phos 155; lactate 4.8 -> 2.9 following IVF -- CBC, BMP,lactate am - UA contamination vs UTI; pending cx - CTAP pending - CXR pending - IVF LR @ 100 mL/hr - Zofran prn N/V - Acetaminophen prn fever/pain - Received cefepime IV in ED -- WBC WNL, w/o LUTS, w/o F/C -- deferred further abx, adjust as medically appropriate (if CT suggests infection/fever develops/WBC become abnormal) #Elevated alkaline phosphatase No abdominal pain, does have vomiting; appears to be chronically elevated. - LFTs otherwise WNL; Alk phos 155 - Will trend as appropriate #HTN- Losartan - hold to ensure no further hypotension, add back once BP have been stable #HLD- Atorvastatin - continue #Psych- Citalopram, duloxetine, lorazepam prn, trazodone HS - continue #GERD- Pantoprazole - continue as IV formulation, adjust back to po once d/c #Ortho pain- Naproxen prn - continue #Dizziness- Meclizine prn - continue Med rec still pending at time of admission which is just before scheduled hospital "Downtime" in which EMR will not be accessible online- If all unconfirmed medications are correct, they may all be continued with the exception of losartan which is to be held, and pantoprazole will be switched to IV formulation, as noted above. Dispo: Admit, med/tele VTE Prophylaxis: SCDs This document was dictated utilizing Plexx. Please excuse any grammatical errors that may be secondary to use of this software. Admission and Anticipated Discharge Date Admission Date: 10/08/2025 History of Present Illness Chief Complaint: Vomiting Primary Care Provider: Amarjit Mendez MD 70-year-old female PMHx HLD, GERD, depression, OA, and spinal stenosis presenting for shaking and vomiting starting the night of arrival. Patient states that she feels like a "wet dog." She states the day of arrival she had h ad soup for her meal and then shortly after this she started to develop nausea and vomiting with associated dizziness. She states that she had very bad dizziness, and vomited approximately 5 times. When she arrived to the ED she had uncontrollable shaking of her body which has since resolved. She is unsure if the vomiting came before or after the dizziness. She states that she has had dizziness in the past, it felt similar but just lasted longer in duration. She states that the dizziness is both her being off balance but also to an extent vertiginous. She does have a prescription for meclizine which she had 1 pill left so she took it, but she vomited shortly after this so she is unsure if it ever made into her system. She did have diarrhea approximately 1 time the day of arrival, but states that prior to that she had been experiencing constipation for approximately 2 weeks which required a Fleet enema approximately 2 days BEE RANCHER to help alleviate her constipation. She states that she had a bowel movement the day BEE RANCHER and it was normal for her. She denies any abdominal pain. She is not nauseous or vomiting at present. She denies any fever or chills. She states that during the episodes, she was having numbness in her bilateral hands and bilateral feet, not abnormal for her as her left foot always has neuropathy. She denies any LUTS, specifically no dysuria, urgency, frequency, or abnormal smell. She states that she did urinate just after her the other day and she is unsure if "the mixing of urine's was an abnormal smell or if it was just hers." No one else ate the soup that she ate, so she is unsure if this was to blame. No one else around her has been sick. She states that when she was sitting in the ED room she was sitting at the TV and it seemed to be swaying to the right. She is not having any dizziness or visionary complaints at present. No prior history of strokes. Denies chest pain, SOB, palpitations, fever, URI symptoms, weakness, falls, or syncope. She has not had this happen before. She is feeling better at present. ED evaluation reveals CBC without leukocytosis/leukopenia, stable H/H; CMP AG 14, glucose 137, alk phos 155; lacta te 4.9, 2.9 on repeat after IVF; Mg 1.9, Ca 9.7; trop 3.3; TSH 2.292; UA pending; CXR pending official read; CTAP pending official read; EKG NSR @ 84 bpm.; Provided with 2L NSS, promethazine 6.25mg IV, zofran 4mg IV, cefepime 2g IV, and acetaminophen 1g IV in ED. Please see Dr. Rose's attestation for adjustments/additions to treatment plan. Allergies Allergy/AdvReac Type Severity Reaction Status Date / Time oxycodone Allergy Intermediate ITCHY HIVES Verified 08/12/25 11:22 Bifidobacterium bifidum Allergy Unknown Verified 10/08/25 01:17 [From Bacid] Lactobacillus acidophilus Allergy Unknown Verified 10/08/25 01:17 [From Bacid] Lactobacillus bulgaricus Allergy Unknown Verified 10/08/25 01:17 [From Bacid] pollen extracts Allergy Unknown Verified 10/08/25 01:19 Streptococcus thermophilus Allergy Unknown Verified 10/08/25 01:17 [From Bacid] Home Medications Medication Instructions Recorded Confirmed Type pantoprazole 40 mg tablet,delayed 40 mg PO QAM 05/22/19 10/08/25 History release atorvastatin 10 mg tablet 10 mg PO HS 03/08/21 10/08/25 History trazodone 100 mg tablet 100 mg PO HS 07/01/21 08/12/25 History lorazepam 1 mg tablet 1 mg PO BID PRN Anxiety 08/23/24 10/08/25 History naproxen 500 mg tablet 500 mg PO BIDM PRN Pain 04/17/25 10/08/25 History citalopram 10 mg tablet 10 mg PO DAILY PRN 07/01/25 08/12/25 History losartan 25 mg tablet 50 mg PO QAM 07/01/25 10/08/25 History citalopram 20 mg tablet 20 mg PO QAM 10/08/25 10/08/25 History duloxetine 60 mg capsule,delayed 60 mg PO HS 10/08/25 10/08/25 History release meclizine 12.5 mg tablet 12.5 mg PO TID PRN dizziness or 10/08/25 10/08/25 History vertigo Past Med/Surg History Problem List (Updated 10/08/25 @ 12:08 by Bernard Donnelly MD) Lactic acidosis Acute labyrinthitis Acute UTI (Acute) Elevated lactic acid level (Acute) Rigors (Acute) Vomiting (Acute) Hypotension (Acute) Multiple pulmonary nodules Weakness generalized Weakness Numbness and tingling of foot Trouble getting to sleep Neuropathic pain Dental caries Vertigo Elevated alkaline phosphatase level Hypertensive urgency Dizziness (Acute) Hypertension (Acute) Intractable back pain (Acute) Anxiety and depression GERD (gastroesophageal reflux disease) Hyperlipidemia S/P spinal surgery (Acute) Neurogenic claudication due to lumbar spinal stenosis Arthritis of knee, left Myelopathy concurrent with and due to spinal stenosis of cervical region Encounter for pre-operative examination Environmental allergies Pollen Medical History Lactose intolerance Occasional cough Chronic, dry- at baseline, s/p multiple unremarkable CXRs Barretts esophagus History of migraine headaches Neuropathy left foot Anxiety Umbilical hernia Present Spinal stenosis Fibromyalgia Osteoarthritis Temporomandibular joint disorder Hx clicking, no locking Surgical History History of total left knee replacement (TKR) Left TKA (03/31/21): SAB at [facility] + [facility] at [facility] History of breast biopsy "Negative" H/O bilateral breast reduction surgery S/P trigger finger release B/L hands History of cataract surgery R/L Hx of fusion of cervical spine C4-6 History of laminectomy Lumbar History of esophagogastroduodenoscopy (EGD) History of colonoscopy Kodak teeth removed History of nasal septoplasty S/P arthroscopic partial lateral meniscectomy Left Family History Other No significant family history Social History Smoking Status: Never smoker Second Hand Exposure: No; Do You Dip or Chew Tobacco: No; Hx Alcohol Use: No Hx Substance Use: No Preferred Language: Comoran Communication Ability: Effective Resource Engineer Required: No Beliefs That Will Affect Care: None marital status: Current Living Situation: Spouse Feels Safe at Home: Yes Assistive Devices: Cane and Walker Review of Systems Review of Systems: All systems reviewed & are unremarkable except as noted in Subjective Physical Exam 2 Physical Exam: General: No acute distress, no rigors Skin: Warm and dry Head: Normocephalic, atraumatic Eyes: PERRL, conjunctivae clear, sclera non-icteric ENT: External ear and ear canal without swelling; nose atraumatic; good dentition, tongue normal appearance, pharynx normal Neck: Supple, no LAD Cardio: RRR, no M/G/R, S1 and S2 normal Resp: No respiratory distress, Lungs CTA in all lobes bilaterally, no wheezes, rales, or rhonchi Abdomen: Soft, symmetric, very mild tenderness over bladder to palpation; No masses or hepatosplenomegaly; Bowel sounds normoactive MSK: No deformities; pulses palpable and equal; no edema. Neuro: Awake, alert; Sensation intact bilaterally; CN grossly intact Psych: Appropriate mood and affect; good judgement and insight. Results & Data Results & Data Vital Signs (Past 12 Hours) Vital Signs Temp Pulse Pulse Resp BP BP Pulse Ox 10/08/25 00:30 95 H 18 146/74 H 92 10/07/25 23:03 96 10/07/25 22:43 36.6 C 83 10/07/25 22:36 105 H 10/07/25 22:24 36.5 C 80 20 96/73 L 98 O2 Del Method 10/08/25 00:30 Room Air 10/07/25 23:03 Room Air 10/07/25 22:43 10/07/25 22:36 10/07/25 22:24 Room Air Laboratory Results 10/08/25 00:03 Urine Culture - Pending Urine,Clean Catch 10/07/25 22:57 Aerobic Blood Culture - Pending Blood Anaerobic Blood Culture - Pending 10/07/25 22:38 Aerobic Blood Culture - Pending Blood Anaerobic Blood Culture - Pending 10/08/25 10/08/25 10/07/25 00:25 00:03 22:38 WBC 8.44 RBC 4.71 Hgb 13.6 Hct 41.8 MCV 88.7 MCH 28.9 MCHC 32.5 RDW Std Deviation 41.1 RDW Coeff of Airam 12.7 Plt Count 234 MPV 10.0 Immature Gran % (Auto) 0.4 Neut % (Auto) 65.5 Lymph % (Auto) 23.1 [place] % (Auto) 8.1 Eos % (Auto) 2.4 Baso % (Auto) 0.5 Neut # (Auto) 5.54 Lymph # (Auto) 1.95 [place] # (Auto) 0.68 H Eos # (Auto) 0.20 Baso # (Auto) 0.04 Immature Gran # (Auto) 0.03 Sodium 140 Potassium 3.8 Chloride 104 Carbon Dioxide 22 Anion Gap 14 H BUN 13 Creatinine 0.93 Est Cr Clr Drug Dosing 49.3 eGFR 66.53 BUN/Creatinine Ratio 14.0 Glucose 137 H Lactate 2.9 H* 4.9 H* Calcium 9.7 Magnesium 1.9 Total Bilirubin 0.7 AST 21 ALT 25 Alkaline Phosphatase 155 H Troponin I High Sens 3.3 Total Protein 7.2 Albumin 4.0 Globulin 3.2 Albumin/Globulin Ratio 1.3 TSH 2.292 Urine Color Yellow Urine Appearance Turbid A Urine pH 6.5 Ur Specific [place] 1.026 Urine Protein 1+ H Urine Glucose (UA) Negative Urine Ketones Negative Urine Blood 1+ H Urine Nitrite Negative Urine Bilirubin Negative Urine Urobilinogen Negative Ur Leukocyte Esterase 3+ H Urine Comment Medications Administered 2L NSS Promethazine 6.25mg IV Zofran 4mg IV Cefepime 2g IV Acetaminophen 1g IV ECG Additional Comments: NSR 84 bpm, IL 152, QRS 76, QT/QTc 388/458, PRT 57/80/69 Code Status & VTE Plan Code Status Full Supervising Physician Co-Signing Physician Notes Attending addendum: I have physically seen this patient, have supervised the medical residents activities, and agree with the H&P unless as otherwise noted. Assessment and Plan: The patient is a 70-year-old female with past medical history including hyperlipidemia, GERD, depression, OA, and spinal stenosis. She presents to the emergency department with complaint of shaking and vomiting that began earlier in the evening prior to arrival. From the ED she received the following: Normal saline 500 mL bolus, Zofran 4 mg IV, 1 g IV, cefepime 2 g IV, Phenergan 6.25 mg IV, normal saline 1 L bolus, normal saline another 500 mL bolus. Lactate was elevated at 2.9. Vomiting/hypotension- Pressure 96/73 upon admission Improved after receiving 2 L normal saline bolus. Lactate elevated at 2.9 No identifiable source at this time. CT abdomen pelvis pending Chest x-ray pending Continue maintenance fluids LR at 100 mL/h Zofran 4 mg IV every 6 hours as needed Acetaminophen 650 mg by mouth every 6 hours as needed for mild pain or fever Status post cefepime 2 g IV in ED hold on any further antibiotics until workup completed Hypertension- Hold losartan due to relatively low blood pressure at this time Psychiatric- Continue citalopram, duloxetine, trazodone at bedtime, and lorazepam as needed. GERD- Change pantoprazole orally to IV Hyperlipidemia- Continue atorvastatin Check a fasting lipid panel Dizziness- Continue meclizine as needed Remaining orders and notations as noted PG Care Time/CCT Total # of Minutes Spent Total Time Spent with Patient: Total time spent is greater than 50% in coordination of care (as documented) at patient's floor/unit and/or counseling patient: Coding Level of Care Code 43405 INT INP/OBS CARE 3/75MIN Diagnoses Vomiting R11.2 Nausea presence: with nausea Vomiting type: unspecified Hypotension I95.9 Hypotension type: unspecified hypotension type Elevated alkaline phosphatase level R74.8 (1) Vomiting Nausea presence: with nausea Vomiting type: unspecified Qualified Code(s): R11.2 - Nausea with vomiting, unspecified (2) Hypotension Hypotension type: unspecified hypotension type Qualified Code(s): I95.9 - Hypotension, unspecified
[2025-10-08] MEDS ORDERED: ACETAMINOPHEN 1,000 MG/100 ML VIAL IV PRN (01:31)
[2025-10-08] MEDS: PANTOprazole 40 MG/10 ML SYR IV STA (01:43)
--- NOTE | 2025-10-08 02:54 | CT Scan Report ---
EXAM: CT abd pelvis IV con only CLINICAL HISTORY: poss obstruc TECHNIQUE: Contiguous axial images were obtained from the level of the diaphragm to the pubic symphysis with intravenous contrast. Coronal and sagittal reconstructions were likewise performed and indicated to increase the sensitivity for detecting clinically relevant pathology. If IV contrast material had not been administered, the likelihood of detecting abnormalities relevant to the patient's condition would have been substantially decreased. CT scan was performed according to ALARA (as low as reasonably achievable). 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 FINDINGS: The visualized lung bases are clear. The liver is normal in size and reduced attenuation. No focal liver lesions are seen. There is no intra or extrahepatic biliary ductal dilatation. Hepatic vasculature is patent. The gallbladder is present. The spleen, pancreas, and adrenal glands are unremarkable. The kidneys are normal in size and attenuation. There is no hydronephrosis or perinephric fat stranding. No renal calculi or renal masses are identified. The ureters are normal in caliber and no ureteral calculi are seen. The bladder is normal in contour. Pelvic viscera are unremarkable. Fecally loaded colon. No focal or diffuse bowel wall thickening or evidence of bowel obstruction is identified. No imaging evidence of appendicitis. Abdominal and pelvic vasculature is patent. No adenopathy or fluid collections are seen. No aggressive appearing osseous lesions are identified. Few atelectatic bands are noted involving bilateral lung bases.-stable. Postoperative changes noted involving lumbar spine with fixation screws and disc device are noted at L4-L5 vertebra.-new finding. IMPRESSION: Fecally loaded colon. No signs of bowel obstruction. No other new interval abnormality since prior study. Electronically signed by Josiah Chowdhury 10-08-2025 02:24 AM
[2025-10-08] MEDS ORDERED: ALUMINUM/MAGNESIUM SUSP 30 ML UDC PO PRN (03:00)
[2025-10-08] MEDS: LACTATED RINGER'S 1,000 ML IV SCH (03:20)
[2025-10-08] MEDS: ONDANSETRON INJ 2 MG/ML 2 ML VIAL IV PRN ×2 (03:20→13:06)
[2025-10-08] MEDS: MECLIZINE 12.5 MG TAB PO PRN (04:15)
[2025-10-08] MEDS: PROCHLORPERAZINE 5 MG in SYRINGE 4 ML IV ONE (05:51)
--- NOTE | 2025-10-08 07:06 | XRay Report ---
EXAM: XR chest 1V portable CLINICAL HISTORY: Weakness TECHNIQUE: An X-ray image of the chest is obtained in AP projection. COMPARISON: 07/28/2025 FINDINGS: Pulmonary Parenchyma: No evidence of consolidation, collapse, or focal opacities. No pulmonary nodules are identified. Interval resolution of the right lower lung zone medial segment faint infiltrates. No evidence of pleural effusion or pleural thickening. Heart and Mediastinum: Heart size and shape are normal. No mediastinal widening or masses. No hilar or mediastinal lymphadenopathy. Bony Thorax: The bony thorax appears intact without fractures or deformities. Soft Tissues: Soft tissues overlying the chest wall are unremarkable. Lower cervical spine fixation device. IMPRESSION: 1. No acute cardiopulmonary abnormalities are identified. 2. Interval resolution of the right lung lower zone medial segment faint infiltrates. Electronically signed by Dragan Bruce 10-08-2025 07:06 AM
[2025-10-08] MEDS: PANTOprazole 40 MG/10 ML SYR IV SCH (07:57)
[2025-10-08] MEDS: CITALOPRAM 20 MG TAB PO SCH (07:57)
[2025-10-08 08:04] LABS: Hematocrit (blood only) 36.4 % (37.0-47.0); Hemoglobin 12.1 g/dL (12.0-16.0); Mean Corpuscular Hemoglobin 29.3 pg (25.0-34.0); Mean Corpuscular Volume 88.1 fL (80.0-100.0); Platelet Count 201 K/uL (130-400); RDW Standard Deviation 41.6 fL (36.4-46.3); Red Blood Count 4.13 M/uL (4.20-5.40); White Blood Count 6.52 K/ul (4.8-10.8)
[2025-10-08 08:17] LABS: Anion Gap 10.0 (3-11); Blood Urea Nitrogen 9.0 mg/dl (6-23); Calcium 9.0 mg/dl (8.6-10.3); Carbon Dioxide 21.0 mmol/L (21-32); Chloride 112.0 mmol/L (98-107); Creatinine Clr Calc Pharmacy 52.7 ml/min; Glucose 111.0 mg/dl (70-99(Fasting)); Potassium 3.7 mmol/L (3.5-5.1); Sodium 143.0 mmol/L (136-145)
[2025-10-08] MEDS: SODIUM CHLORIDE 0.9% 1,000 ML IV SCH (09:46)
[2025-10-08] MEDS ORDERED: methylPREDNISolone 10 mg/mL (For Ped Dose < 7mg) IV SCH (12:00)
--- NOTE | 2025-10-08 12:10 | Hospitalist Progress Note ---
Date of Service October 08, 2025 Assessment & Plan (1) Acute labyrinthitis: Plan: Likely cause of nausea and vomiting which have resolved. Vertigo symptoms have nearly totally resolved. She is feeling better. Will continue scheduled low- dose meclizine along with parenteral steroid therapy for now. (2) Vomiting: Plan: Present on admission. Now resolved. Probably from the vertigo (3) Hypotension: Plan: Present on admission. Resolved with IV fluids (4) Elevated alkaline phosphatase level: Plan: Mild. No clinical significance (5) Lactic acidosis: Plan: Mildly elevated on admission and now normalized. Plan Hopeful discharge to home tomorrow, October 08, on meclizine 12.5 mg 3 times a day for 5 more days along with a prednisone tapering dose Admission and Anticipated Discharge Date Admission Date: October 08, 2025 Subjective The patient is alert and oriented. No distress. Nausea and vomiting have resolved. Vertigo symptoms have nearly resolved. Her symptoms were consistent with acute labyrinthitis on admission which likely caused the nausea and vomiting. Will schedule low-dose meclizine 3 times daily along with parenteral steroid therapy every 8 hours. Diet advanced to regular diet. IV fluids tapered down. Hopefully she can go home tomorrow, October 09 Review of Systems 2 Review of Systems: Constitutionalno fever or chills ENTno blurred vision, no double vision, no epistaxis, no sore throat Respiratoryno cough, no wheezing, no shortness of breath Cardiacno palpitations, no chest pain, no syncope Jeison nausea, vomiting, diarrhea, melena, hematochezia GUno urinary retention, no urinary incontinence, no dysuria, no hematuria Musculoskeletalno joint pain, no muscle tenderness Skinno bruising, no rashes, no pruritus Neurono isolated weakness, no paresthesia, no weakness. Vertigo symptoms have nearly totally resolved Psychno depression, no anxiety Physical Exam 2 Physical Exam: General-alert and oriented x3, no fever, no chills HEENT-head atraumatic and normocephalic, pupils equal and reactive to light, extraocular muscles intact Neck-no lymphadenopathy or thyromegaly, trachea midline Chest-clear to auscultation. No rales, wheezing or rhonchi Cardiac-regular rate and rhythm, normal S1 and S2 Abdomen-normal bowel sounds, no hepatosplenomegaly Extremities-no cyanosis, clubbing, or edema Neuro-cranial nerves II through XII intact, motor and sensory function within normal limits, strength symmetrical, no focal deficits Psych-normal affect, normal mood Results & Data Results & Data Vital Signs (Past 12 Hours) Vital Signs Temp Pulse Pulse Resp BP Pulse Ox Pulse Ox 10/08/25 11:19 36.3 C L 79 20 162/90 H 100 10/08/25 08:13 36.6 C 83 18 154/78 H 97 10/08/25 07:06 81 10/08/25 04:58 36.4 C L 84 20 164/86 H 98 10/08/25 04:54 36.4 C L 84 20 164/86 H 98 10/08/25 03:29 96 10/08/25 02:57 36.5 C 74 20 176/100 H 96 10/08/25 02:32 76 10/08/25 01:44 79 18 159/80 H 96 10/08/25 00:30 95 H 18 146/74 H 92 O2 Del Method O2 Del Method 10/08/25 11:19 Room Air 10/08/25 08:13 Room Air 10/08/25 07:06 10/08/25 04:58 Room Air 10/08/25 04:54 Room Air 10/08/25 03:29 Room Air 10/08/25 02:57 Room Air 10/08/25 02:32 10/08/25 01:44 Room Air 10/08/25 00:30 Room Air Laboratory Results 10/08/25 07:29 10/08/25 07:29 PG Care Time/CCT Total # of Minutes Spent Total Time Spent with Patient: Total time spent is greater than 50% in coordination of care (as documented) at patient's floor/unit and/or counseling patient: Coding Level of Care Code 92550 SUB INP/OBS CARE 3/50MIN Diagnoses Acute labyrinthitis H83.09 Vomiting R11.2 Nausea presence: with nausea Vomiting type: unspecified Hypotension I95.9 Hypotension type: unspecified hypotension type Elevated alkaline phosphatase level R74.8 Lactic acidosis E87.20 (2) Vomiting Nausea presence: with nausea Vomiting type: unspecified Qualified Code(s): R 11.2 - Nausea with vomiting, unspecified (3) Hypotension Hypotension type: unspecified hypotension type Qualified Code(s): I95.9 - Hypotension, unspecified
[2025-10-08] MEDS: MECLIZINE 12.5 MG TAB PO SCH (13:00)
[2025-10-08] MEDS ORDERED: PROMETHAZINE 6.25 MG/50.25 ML BAG IV PRN (15:11)
[2025-10-08] MEDS: PROMETHAZINE 6.25 MG/50.25 ML BAG IV STA (16:04)
--- NOTE | 2025-10-08 18:54 | Electrocardiogram Report ---
Test Reason : Blood Pressure : */* mmHG Vent. Rate : 84 BPM Atrial Rate : 84 BPM P-R Int : 152 ms QRS Dur : 76 ms QT Int : 388 ms P-R-T Axes : 57 80 69 degrees QTcB Int : 458 ms Normal sinus rhythm Normal ECG When compared with ECG of 17-Apr-2025 20:34, No significant change was found Confirmed by Cm Lobato ([id number]) on 10/08/2025 6:54:01 PM Referred By: REFERRED SELF Confirmed By: mC Lobato
[2025-10-08] MEDS: ATORVASTATIN 10 MG TAB PO SCH (20:13)
[2025-10-08] MEDS: MELATONIN 3 MG TAB PO PRN (23:50)
[2025-10-09] MEDS: LIDOCAINE 5% 1 PATCH TD STA (00:42)
[2025-10-09] MEDS: ACETAMINOPHEN 325 MG TAB PO PRN (04:30)
[2025-10-09 07:45] LABS: Alanine Aminotransferase 16.0 U/L (7-52); Albumin Globulin Ratio 1.7 (0.9-2); Albumin Level 3.5 gm/dl (3.4-5.0); Alkaline Phosphatase 111.0 U/L (34-104); Anion Gap 7.0 (3-11); Bilirubin,Total 0.5 mg/dl (0.2-1.0); Blood Urea Nitrogen 7.0 mg/dl (6-23); Calcium 8.8 mg/dl (8.6-10.3); Carbon Dioxide 22.0 mmol/L (21-32); Chloride 113.0 mmol/L (98-107); Creatinine Clr Calc Pharmacy 57.3 ml/min; Globulin 2.1 gm/dl (2.5-4.0); Glucose 142.0 mg/dl (70-99(Fasting)); Potassium 3.6 mmol/L (3.5-5.1); Sodium 142.0 mmol/L (136-145); Total Protein 5.6 gm/dl (6.0-8.3)
[2025-10-09] MEDS: LORazepam 0.5 MG TAB PO PRN (12:39)
[2025-10-09] MEDS ORDERED: REMOVE LIDODERM PATCH SCH (13:00)
--- NOTE | 2025-10-09 13:58 | Hospitalist Progress Note ---
Date of Service October 09, 2025 Assessment & Plan (1) Vomiting: (2) Hypotension: (3) Elevated alkaline phosphatase level: Plan 70-year-old female PMHx HLD, GERD, depression, OA, and spinal stenosis presenting for shaking and vomiting starting the night of arrival. Her evaluation is without gross CBC or CMP abnormalities with exception of hyperglycemia, elevated alkaline phos and elevated lactate which was responsive to fluids. Her imaging is pending official report at the time of admission. #Dizzinessmost likely labyrinthitis - appears to have been the root cause of the nausea and vomiting, which in turn caused the hypotension (probably some from volume depletion and some from vagal response)improving, but still not very steady on her feet/does not at all feel safe for home. Continue steroids and scheduled meclizine, PT/OT eval and treat. Hopefully home soon (once she is steady enough on her feet to be safe) #HTN- Losartan - held to ensure no further hypotension, add back once BP have been stable or at time of discharge #HLD- Atorvastatin - continue #Psych- Citalopram, duloxetine, lorazepam prn, trazodone HS - continue #GERD- Pantoprazole #Ortho pain- Naproxen prn - continue #Dizziness- Meclizine prn - continue #mildly elevated alk phos -nonspecific - ?OA related most likely - outpatient follow up #DVT prophylaxis - Lovenox Admission and Anticipated Discharge Date Admission Date: October 08, 2025 Subjective overall feels better than before, but still not well enough to go homedizziness has improved at rest, but she still feels very unsteady and spinning on her feetfeeling the need to either hold onto things or have assistance with walkingdefinitely does not feel she could safely navigate her home yet. Nausea and vomiting is improvedshe was able to eat well. Also notes feeling a little bit shaky and flushed. Review of Systems Review of Systems: All systems reviewed & are unremarkable except as noted in HPI & below Physical Exam Physical Exam: General she is awake alert oriented pleasant no distress. HEENT normocephalic atraumatic mucous membranes moist. Breathing unlabored no accessory muscle use good effort. Skin without rashes pallor or icterus. Neuro without focal deficits. Results & Data Results & Data Vital Signs (Past 12 Hours) Vital Signs Temp Pulse Pulse Resp BP BP Pulse Ox 10/09/25 11:26 98.2 F 77 16 143/76 H 94 10/09/25 07:33 98.4 F 70 18 157/73 H 96 10/09/25 07:20 75 10/09/25 03:59 98.1 F 115 H 18 150/84 H 93 O2 Del Method 10/09/25 11:26 Room Air 10/09/25 07:33 Room Air 10/09/25 07:20 10/09/25 03:59 Room Air PG Care Time/CCT Total # of Minutes Spent Total Time Spent with Patient: Total time spent is greater than 50% in coordination of care (as documented) at patient's floor/unit and/or counseling patient: Coding Level of Care Code 52622 SUB INP/OBS CARE 2/35MIN Diagnoses Vomiting R11.2 Nausea presence: with nausea Vomiting type: unspecified Hypotension I95.9 Hypotension type: unspecified hypotension type Elevated alkaline phosphatase level R74.8 (1) Vomiting Nausea presence: with nausea Vomiting type: unspecified Qualified Code(s): R11.2 - Nausea with vomiting, unspecified (2) Hypotension Hypotension type: unspecified hypotension type Qualified Code(s): I95.9 - Hypotension, unspecified
[2025-10-10] MEDS: LOSARTAN POTASSIUM 50 MG TAB PO SCH ×2 (10:00→23:40)
[2025-10-10] MEDS: predniSONE 20 MG TAB PO SCH (10:00)
[2025-10-10] MEDS: GADOBUTROL 65ML VIAL IV ONE (13:18)
--- NOTE | 2025-10-10 13:54 | Magnetic Resonance Report ---
MRI OF THE BRAIN COMBO CLINICAL HISTORY: Vertigo. COMPARISON STUDY: MRI of the brain dated 04/18/2025. TECHNIQUE: MRI of the brain was performed utilizing various T1 and T2-weighted sequences in the axial , sagittal, and coronal planes. Contrast-enhanced sequences were acquired following the administratio n of 6 cc of Gadavist. The examination is modestly degraded by motion artifact. FINDINGS: Brain parenchyma: There is age advanced involutional change noting advanced confluent subcortical and periventricular microangiopathic disease. There is no hemorrhage or mass effect. There is no restric alok diffusion to suggest acute ischemia. No enhancing mass lesion is identified on the postcontrast i mages. Guadalupe-white matter differentiation is preserved. Mineralization is noted in the basal ganglia. No extra-axial fluid collection is seen. The cerebellar tonsils are normal in configuration. Ventricles, sulci, and cisterns: Prominent secondary to involutional change. Pituitary and sella: Unremarkable. Intracranial vasculature: Normal flow voids are maintained at the skull base. Orbits: The bony orbits are grossly intact. Orbital contents are normal in appearance noting bilatera l ocular lens implants. Sinuses and mastoids: Clear. Calvarium: Unremarkable. Fusion hardware is noted in the cervical spine. Cervical cord: Partially visualized cervical spinal cord is normal in morphology and signal intensity . IMPRESSION: No acute intracranial abnormality is identified. ACT 112: Negative or not required by law. Electronically signed by: Chuy Waite M.D. 10/10/2025 1:52 PM
--- NOTE | 2025-10-10 14:41 | Hospitalist Progress Note ---
Date of Service October 10, 2025 Assessment & Plan (1) Vomiting: (2) Hypotension: (3) Elevated alkaline phosphatase level: Plan #Dizzinessmost likely labyrinthitis - appears to have been the root cause of the nausea and vomiting, which in turn caused the hypotension (probably some from volume depletion and some from vagal response) Unfortunately not improving very quickly. While this all appeared to be inner ear mediated, given her age and comorbidities I obtained MRI brain to rule out the unlikely event that the vertigo was due to a cerebellar strokefortunately normal. Does appear that she will need rehab. PT/OT eval and treat, rehab referral via case management #HTN- resume losartan #HLD- Atorvastatin - continue #Psych- Citalopram, duloxetine, lorazepam prn, trazodone HS - continue #GERD- Pantoprazole #Ortho pain- Naproxen prn - continue #Dizziness- Meclizine prn - continue #mildly elevated alk phos -nonspecific - ?OA related most likely - outpatient follow up #DVT prophylaxis - Lovenox dispositionunfortunately progressing slowly and not safe/steady on her feetanticipate rehab placement once bed available. Admission and Anticipated Discharge Date Admission Date: October 08, 2025 Subjective feeling more or less the same. Still very off balance. Seen just after OT worked with herand there were several "near miss" following events that OT needed to steady hereven with the walker. Clear that she would not be safe at home. Review of Systems Review of Systems: All systems reviewed & are unremarkable except as noted in HPI & below Physical Exam Physical Exam: In general she is awake alert oriented pleasant no distress. HEENT normocephalic atraumatic mucous membranes moist. Breathing unlabored no accessory muscle use good effort. Skin without rashes pallor or icterus. Neuro without focal deficits. Results & Data Results & Data Vital Signs (Past 12 Hours) Vital Signs Temp Pulse Resp BP BP Pulse Ox O2 Del Method 10/10/25 08:06 97.7 F 63 16 192/92 H 94 Room Air 10/10/25 04:10 97.7 F 69 16 132/67 93 Room Air PG Care Time/CCT Total # of Minutes Spent Total Time Spent with Patient: Total time spent is greater than 50% in coordination of care (as documented) at patient's floor/unit and/or counseling patient: Coding Level of Care Code 04626 SUB INP/OBS CARE 3/50MIN Diagnoses Vomiting R11.2 Nausea presence: with nausea Vomiting type: unspecified Hypotension I95.9 Hypotension type: unspecified hypotension type Elevated alkaline phosphatase level R74.8 (1) Vomiting Nausea presence: with nausea Vomiting type: unspecified Qualified Code(s): R11.2 - Nausea with vomiting, unspecified (2) Hypotension Hypotension type: unspecified hypotension type Qualified Code(s): I95.9 - Hypotension, unspecified
[2025-10-11] MEDS: predniSONE 20 MG TAB PO SCH (08:32)
--- NOTE | 2025-10-11 13:40 | Hospitalist Progress Note ---
Date of Service October 11, 2025 Assessment & Plan (1) Acute labyrinthitis: Plan: Likely cause of nausea and vomiting which have resolved. Vertigo symptoms have now totally resolved. Will discontinue meclizine tomorrow, October 12. She is currently on an oral prednisone tapering dose. (2) Vomiting: Plan: Present on admission. Now resolved. Probably from the vertigo (3) Hypotension: Plan: Present on admission. Resolved with IV fluids (4) Elevated alkaline phosphatase level: Plan: Mild. No clinical significance (5) Lactic acidosis: Plan: Mildly elevated on admission and now normalized. Plan Awaiting discharge to rehab when arrangements are finalized. Admission and Anticipated Discharge Date Admission Date: October 08, 2025 Subjective Alert and oriented. The patient states her vertigo has now resolved. She remains on scheduled dosing of low-dose meclizine which will be discontinued tomorrow, October 12. She is currently on a prednisone tapering dose. Both PT and OT recommend rehab placement which is pending. IV fluids have been discontinued Review of Systems 2 Review of Systems: Constitutionalno fever or chills ENTno blurred vision, no double vision, no epistaxis, no sore throat Respiratoryno cough, no wheezing, no shortness of breath Cardiacno palpitations, no chest pain, no syncope Jeison nausea, vomiting, diarrhea, melena, hematochezia GUno urinary retention, no urinary incontinence, no dysuria, no hematuria Musculoskeletalno joint pain, no muscle tenderness Skinno bruising, no rashes, no pruritus Neurono isolated weakness, no paresthesia, no weakness. Vertigo symptoms have resolved Psychno depression, no anxiety Physical Exam 2 Physical Exam: General-alert and oriented x3, no fever, no chills HEENT-head atraumatic and normocephalic, pupils equal and reactive to light, extraocular muscles intact Neck-no lymphadenopathy or thyromegaly, trachea midline Chest-clear to auscultation. No rales, wheezing or rhonchi Cardiac-regular rate and rhythm, normal S1 and S2 Abdomen-normal bowel sounds, no hepatosplenomegaly Extremities-no cyanosis, clubbing, or edema Neuro-cranial nerves II through XII intact, motor and sensory function within normal limits, strength symmetrical, no focal deficits Psych-normal affect, normal mood Results & Data Results & Data Vital Signs (Past 12 Hours) Vital Signs Temp Pulse Pulse Pulse Resp BP BP 10/11/25 11:26 36.8 C 81 16 133/68 10/11/25 08:25 36.7 C 76 16 187/97 H 10/11/25 07:35 72 10/11/25 04:16 70 180/78 H 10/11/25 02:24 37.1 C 71 18 205/83 H Pulse Ox O2 Del Method 10/11/25 11:26 93 Room Air 10/11/25 08:25 94 Room Air 10/11/25 07:35 10/11/25 04:16 10/11/25 02:24 94 Room Air Laboratory Results 10/08/25 07:29 10/09/25 06:40 PG Care Time/CCT Total # of Minutes Spent Total Time Spent with Patient: Total time spent is greater than 50% in coordination of care (as documented) at patient's floor/unit and/or counseling patient: Coding Level of Care Code 57779 SUB INP/OBS CARE 2/35MIN Diagnoses Acute labyrinthitis H83.09 Vomiting R11.2 Nausea presence: with nausea Vomiting type: unspecified Hypotension I95.9 Hypotension type: unspecified hypotension type Elevated alkaline phosphatase level R74.8 Lactic acidosis E87.20 (2) Vomiting Nausea presence: with nausea Vomiting type: unspecified Qualified Code(s): R 11.2 - Nausea with vomiting, unspecified (3) Hypotension Hypotension type: unspecified hypotension type Qualified Code(s): I95.9 - Hypotension, unspecified
--- NOTE | 2025-10-12 15:11 | Hospitalist Progress Note ---
Date of Service October 12, 2025 Assessment & Plan (1) Acute labyrinthitis: Plan: Likely cause of nausea and vomiting which have resolved. Vertigo symptoms have now totally resolved. Meclizine discontinued today, October 12. Prednisone dosage tapered down to 10 mg daily. This probably can be discontinued in the next day or 2. (2) Vomiting: Plan: Present on admission. Now resolved. Probably from the vertigo present on admission (3) Hypotension: Plan: Present on admission. Resolved with IV fluids. She is now somewhat hypertensive and amlodipine has been started today, October 12. Will follow (4) Elevated alkaline phosphatase level: Plan: Mild. No clinical significance (5) Lactic acidosis: Plan: Mildly elevated on admission and now normalized. Plan Awaiting discharge to rehab when arrangements are finalized. Admission and Anticipated Discharge Date Admission Date: October 08, 2025 Subjective Alert and oriented. No new problems. Amlodipine was started for better blood pressure control. Meclizine has been discontinued since she is asymptomatic from a labyrinthitis standpoint. Prednisone tapering continues, now down to 10 mg daily. Eventually this can be discontinued Review of Systems 2 Review of Systems: Constitutionalno fever or chills ENTno blurred vision, no double vision, no epistaxis, no sore throat Respiratoryno cough, no wheezing, no shortness of breath Cardiacno palpitations, no chest pain, no syncope Jeison nausea, vomiting, diarrhea, melena, hematochezia GUno urinary retention, no urinary incontinence, no dysuria, no hematuria Musculoskeletalno joint pain, no muscle tenderness Skinno bruising, no rashes, no pruritus Neurono isolated weakness, no paresthesia, no weakness. Vertigo symptoms have resolved Psychno depression, no anxiety Physical Exam 2 Physical Exam: General-alert and oriented x3, no fever, no chills HEENT-head atraumatic and normocephalic, pupils equal and reactive to light, extraocular muscles intact Neck-no lymphadenopathy or thyromegaly, trachea midline Chest-clear to auscultation. No rales, wheezing or rhonchi Cardiac-regular rate and rhythm, normal S1 and S2 Abdomen-normal bowel sounds, no hepatosplenomegaly Extremities-no cyanosis, clubbing, or edema Neuro-cranial nerves II through XII intact, motor and sensory function within normal limits, strength symmetrical, no focal deficits Psych-normal affect, normal mood Results & Data Results & Data Vital Signs (Past 12 Hours) Vital Signs Temp Pulse Pulse Resp BP Pulse Ox O2 Del Method 10/12/25 11:04 36.6 C 76 16 119/69 96 Room Air 10/12/25 08:07 36.8 C 74 16 180/93 H 93 Room Air 10/12/25 07:17 73 10/12/25 03:22 192/81 H Laboratory Results 10/08/25 07:29 10/09/25 06:40 PG Care Time/CCT Total # of Minutes Spent Total Time Spent with Patient: Total time spent is greater than 50% in coordination of care (as documented) at patient's floor/unit and/or counseling patient: Coding Level of Care Code 36547 SUB INP/OBS CARE 3/50MIN Diagnoses Acute labyrinthitis H83.09 Vomiting R11.2 Nausea presence: with nausea Vomiting type: unspecified Hypotension I95.9 Hypotension type: unspecified hypotension type Elevated alkaline phosphatase level R74.8 Lactic acidosis E87.20 (2) Vomiting Nausea presence: with nausea Vomiting type: unspecified Qualified Code(s): R 11.2 - Nausea with vomiting, unspecified (3) Hypotension Hypotension type: unspecified hypotension type Qualified Code(s): I95.9 - Hypotension, unspecified
--- NOTE | 2025-10-12 18:14 | Communication Note ---
Date of Service: October 12, 2025 Notified by nursing staff that the patient was tachycardic per telemetry. I saw and examined her. She denies palpitations. Heart rate is regular and 80-90. She is currently asymptomatic.
[2025-10-13 08:13] VITALS: O2SAT 96
--- NOTE | 2025-10-13 09:56 | Electrocardiogram Report ---
Test Reason : Blood Pressure : */* mmHG Vent. Rate : 89 BPM Atrial Rate : 89 BPM P-R Int : 146 ms QRS Dur : 84 ms QT Int : 388 ms P-R-T Axes : 48 44 74 degrees QTcB Int : 472 ms Normal sinus rhythm Normal ECG When compared with ECG of 07-Oct-2025 22:46, No significant change was found Confirmed by Scot Calvert ([id number]) on 10/13/2025 9:55:58 AM Referred By: REFERRED SELF Confirmed By: Scot Calvert
[2025-10-13 11:30] VITALS: BP 136/83; RESP 18; TEMP 97.9
[2025-10-13 13:39] VITALS: PULSE 70
--- NOTE | 2025-10-13 13:41 | Discharge Summary ---
Discharge Summary Date of Service October 13, 2025 Principal Dx & Hospital Course #1 = Principal Diagnosis (1) Acute labyrinthitis: (2) Vomiting: (3) Hypotension: (4) Elevated alkaline phosphatase level: (5) Lactic acidosis: Plan This patient is a 70-year-old female with a history of hyperlipidemia, GERD, depression, osteoarthritis, spinal stenosis, neuropathy of left foot, who presented to the ED with dizziness and persistent nausea/vomiting with hypotension and lactic acidosis. Her UA was initially thought to be UTI but was contaminated and she did not have any urinary symptoms. She was treated with IV fluids and her lactic acidosis resolved, blood pressures improved. #Nausea/vomiting/dizziness-possible vertigo versus labyrinthitis versus viral gastroenteritis. CT abdomen/pelvis only showed constipation. Brain MRI was negative for stroke. She had normal sinus rhythm and occasional sinus tachycardia on telemetry monitoring but no arrhythmias. She was treated with IV fluids, antiemetics, scheduled meclizine and prednisone burst for labyrinthitis from previous hospitalist. She had significant improvement. Initially PT saw her and recommended rehab but the patient was feeling better and was stable for discharge to home instead - No further need for prednisone, can continue meclizine as needed #Hypertension-she was initially hypotensive secondary to hypovolemia from nausea/vomiting. Her losartan was initially held and she was given IV fluids. She then had significant hypertension and was started on amlodipine - Continue home losartan - Added amlodipine 5 mg p.o. daily - Follow [facility] as an outpatient #GERD-no acute issues but Protonix was increased to twice daily while she was here on steroids and vomiting - Return to home Protonix 40 mg p.o. daily #Spinal stenosis/neuropathy of left foot/osteoarthritis-no acute issues - Continue home duloxetine, naproxen #Depression-no acute issues - Continue home lorazepam, trazodone, duloxetine, citalopram DVT prophylaxis-SCDs Disposition-stable for discharge to home Notes For Next Care Provider None Medication Changes From Visit None Admission HPI Per Admitting Provider 70-year-old female PMHx HLD, GERD, depression, OA, and spinal stenosis presenting for shaking and vomiting starting the night of arrival. Patient states that she feels like a "wet dog." She states the day of arrival she had had soup for her meal and then shortly after this she started to develop nausea and vomiting with associated dizziness. She states that she had very bad dizziness, and vomited approximately 5 times. When she arrived to the ED she had uncontrollable shaking of her body which has since resolved. She is unsure if the vomiting came before or after the dizziness. She states that she has had dizziness in the past, it felt similar but just lasted longer in duration. She states that the dizziness is both her being off balance but also to an extent vertiginous. She does have a prescription for meclizine which she had 1 pill left so she took it, but she vomited shortly after this so she is unsure if it ever made into her system. She did have diarrhea approximately 1 time the day of arrival, but states that prior to that she had been experiencing constipation for approximately 2 weeks which required a Fleet enema approximately 2 days PILER to help alleviate her constipation. She states that she had a bowel movement the day PILER and it was normal for her. She denies any abdominal pain. She is not nauseous or vomiting at present. She denies any fever or chills. She states that during the episodes, she was having numbness in her bilateral hands and bilateral feet, not abnormal for her as her left foot always has neuropathy. She denies any LUTS, specifically no dysuria, urgency, frequency, or abnormal smell. She states that she did urinate just after her the other day and she is unsure if "the mixing of urine's was an abnormal smell or if it was just hers." No one else ate the soup that she ate, so she is unsure if this was to blame. No one else around her has been sick. She states that when she was sitting in the ED room she was sitting at the TV and it seemed to be swaying to the right. She is not having any dizziness or visionary complaints at present. No prior history of strokes. Denies chest pain, SOB, palpitations, fever, URI symptoms, weakness, falls, or syncope. She has not had this happen before. She is feeling better at present. ED evaluation reveals CBC without leukocytosis/leukopenia, stable H/H; CMP AG 14, glucose 137, alk phos 155; lactate 4.9, 2.9 on repeat after IVF; Mg 1.9, Ca 9.7; trop 3.3; TSH 2.292; UA pending; CXR pending official read; CTAP pending official read; EKG NSR @ 84 bpm.; Provided with 2L NSS, promethazine 6.25mg IV, zofran 4mg IV, cefepime 2g IV, and acetaminophen 1g IV in ED. Please see Dr. Rose's attestation for adjustments/additions to treatment plan. Discharge Exam Constitutional WD/WN, vitals as above Respiratory normal respiratory effort, lungs clear to auscultation Cardiovascular RRR, no murmur, no edema Gastrointestinal (Abdomen) normal bowel sounds, soft, nontender, no hepatosplenomegaly Psychiatric Orientation: alert and oriented x 3 Discharge Plan Discharge Items Patient Disposition: Home - Self-Care Reason For Visit: N/V, HYPOTENSION Discharge Diagnosis: Nausea/vomiting, dehydration Hypotension, then hypertension Condition on Discharge: Good Activity: As commented below Lifting: Gradually increase as tolerated Bathing: No limitations Exercise/Sports: Gradually increase as tolerated Non-emergency contact: Primary Care Provider Call non-emergency contact if: you have any medication questions and your symptoms worsen Follow-up/Referrals: Amarjit Mendez MD [Primary Care Provider] - (Date & Time 10/20/2025 3:00 PM Provider: Amarjit Mendez MD [facility], [facility] ) Diet: Regular Addtl Attending Provider Instructions: You were admitted with nausea and vomiting which caused dehydration and low blood pressures along with dizziness. You were treated with IV fluids and had improvement. You were also treated with prednisone and meclizine in case of labyrinthitis and vertigo. You had a brain MRI which was negative for stroke. Your blood pressures then became severely elevated. You were started on a new blood pressure medicine called amlodipine to be taken once daily along with your losartan. Your blood pressures returned to normal. You were significantly improved and stable for discharge to home. It was a pleasure taking care of you! If you have any questions about your care before your hospital follow-up visit with your primary care provider, please call [phone] and ask to be transferred to the [facility] Medicine office. Sincerely, Julia Trevino M.D. Pending Studies at Discharge: Yes Studies:: Blood cultures-no growth to date Stand-Alone Forms: [facility], Smoking Cessation Medications and DC Order Prescriptions: New amlodipine 5 mg Tablet 5 mg PO QAM Qty: 30 0RF Continued losartan 25 mg tablet 50 mg PO QAM pantoprazole 40 mg Tablet,Delayed Release (Dr/Ec) 40 mg PO QAM atorvastatin 10 mg Tablet 10 mg PO HS Hold Instructions: until pcp follow up trazodone 100 mg tablet 100 mg PO HS naproxen 500 mg Tablet 500 mg PO BIDM PRN (Reason: Pain) citalopram 20 mg tablet 20 mg PO QAM duloxetine 60 mg capsule,delayed release(DR/EC) 60 mg PO HS meclizine 12.5 mg tablet 12.5 mg PO TID PRN (Reason: dizziness or vertigo) lorazepam 1 mg tablet 1 mg PO BID PRN (Reason: Anxiety) Discontinued citalopram 10 mg tablet 10 mg PO DAILY PRN Rx Instructions: Take 2 tablets by mouth (20mg) daily x 1 week, then take 1 tablet by mouth (10mg) daily x 1 week Discharge Orders: Discharge Order (Routine); Ordered 10/13/25 Ordered By: Julia Trevino Admission Data Admit Date/Time: 10/08/25 01:11 Attending Provider: Julia Trevino Admit Provider: Molina Gudino Primary Care Provider: Amarjit Mendez Other Providers: Darwin Rose; [facility] Hospital Stay Data Consultations 10/08/25 00:47 ED Decision to Admit Stat Diagnostic Imagining Performed 10/07/25 22:34 CT abd pelvis IV con only Stat 10/10/25 12:15 MRI Brain [MR brain wo/w con] Routine Pending Results Patient Have Any Pending Studies at Discharge: Yes Discharge Instructions Given to Patient (Per Discharging Provider) You were admitted with nausea and vomiting which caused dehydration and low blood pressures along with dizziness. You were treated with IV fluids and had improvement. You were also treated with prednisone and meclizine in case of labyrinthitis and vertigo. You had a brain MRI which was negative for stroke. Your blood pressures then became severely elevated. You were started on a new blood pressure medicine called amlodipine to be taken once daily along with your losartan. Your blood pressures returned to normal. You were significantly improved and stable for discharge to home. It was a pleasure taking care of you! If you have any questions about your care before your hospital follow-up visit with your primary care provider, please call [phone] and ask to be transferred to the [facility] Medicine office. Sincerely, Julia Trevino M.D. Total Time Total Time Spent Total Time Spent (In Minutes): 35 minutes Total Time Includes: Examination of the Patient, Discharge Planning and Medication Reconciliation Coding Level of Care Code 77171 INP/OBS DISCH >30 MIN Diagnoses Acute labyrinthitis H83.09 Vomiting R11.2 Nausea presence: with nausea Vomiting type: unspecified Hypotension I95.9 Hypotension type: unspecified hypotension type Elevated alkaline phosphatase level R74.8 Lactic acidosis E87.20
== END 2025-10-13 14:28 | disposition home or self-care (01) | DRG 149 ==
LOC: ED 22:17 → SUATTDRO 10-08 01:11 → 2W 10-08 01:11